=== PATIENT | female | born 1970 | race Caucasian/White ===

== ENCOUNTER → 2018-04-08 14:10 | Outpatient (CLI) | payer OTHER, SELFPAY ==
[2018-04-08 16:03] LABS: T3 Total - Triiodothyronine 1.68 ng/mL (0.6-1.81)
[2018-04-08 16:05] LABS: T4 Free Direct 0.63 ng/dL (0.76-1.46); Thyroid Stim Hormone (TSH) 1.69 uIU/mL (0.358-3.74)
[2018-04-16 04:09] LABS: QNTFERON TB Ag Minus Nil Value 0.16 IU/mL (.); QNTFERON TB Ag Value 0.27 IU/mL (.); QNTFERON TB Mitogen Value > 10.00 IU/mL (.); QNTFERON TB Nil Value 0.11 IU/mL (.)
[2018-04-16 09:30] LABS: QNTIFERON TB Gold Negative (Negative)
== END ==
PROVIDERS: Family Provider Family Medicine; PCP Family Medicine; Visit Provider Family Medicine
DX: E03.9 Hypothyroidism, unspecified (principal); Z20.1 Contact with and (suspected) exposure to tuberculosis
CPT/HCPCS: 36415; 84439; 84443; 84480; 86480

== ENCOUNTER → 2018-06-06 11:05 | Outpatient (CLI) | payer OTHER, SELFPAY ==
[2018-06-06 14:50] LABS: Amphetamine Urine VISTA NEGATIVE (<1000 ng/mL); Barbiturate Urine VISTA NEGATIVE (< 200 ng/mL); Benzodiazepine Urine VISTA NEGATIVE (< 200 ng/mL); Cocaine Urine VISTA NEGATIVE (< 300 ng/mL); Ecstacy Urine VISTA NEGATIVE (< 500 ng/mL); Methadone Urine VISTA NEGATIVE (< 300 ng/mL); PCP Urine VISTA NEGATIVE (< 25 ng/mL); THC Urine VISTA NEGATIVE (< 50 ng/mL); Vista UDS pH Range 6
== END ==
PROVIDERS: Family Provider Family Medicine; PCP Family Medicine; Visit Provider Family Medicine
DX: Z02.89 Encounter for other administrative examinations (principal)
CPT/HCPCS: 80307

== ENCOUNTER → 2018-07-08 13:40 | Outpatient (CLI) | payer OTHER, SELFPAY ==
--- NOTE | 2018-07-08 13:45 | BI_ITS ---
MAMMOGRAPHY - BILATERAL SCREENING REASON FOR EXAM: Female, 47 years old. Routine annual screening examination. PERTINENT HISTORY: Non-contributory. TECHNIQUE: Digital bilateral breast lizette (3D mammographic acquisition) in the CC and MLO projections. 2-D mediolateral oblique (MLO) and craniocaudad (CC) views of both breasts were obtained. CAD: Full Field Digital Mammography with Computer Added Detection was performed. COMPARISON: Comparison is made with prior study dated June 21, 2017 and March 12, 2016. FINDINGS: Breast Composition: The breasts are heterogeneously dense, which may obscure small masses. There are no dominant masses or suspicious calcifications. No other significant abnormalities are identified. There has been no significant change since the prior study. BI/SCREENING MAMM (CAD), BILAT IMPRESSION: Stable bilateral screening mammogram. Yearly follow-up mammogram recommended. (A) ASSESSMENT CATEGORY: BIRADS Category 1: Negative. A letter regarding these results will be sent to the patient by the facility within 30 days. Approximately 10% of breast cancers are not detected by mammography. A normal mammogram should not delay biopsy of a clinically suspicious abnormality. [id number] Electronically Signed: Cj Morrissey MD at 15:51 EDT Tel [phone], Service support ,
== END ==
PROVIDERS: Family Provider Family Medicine; PCP Family Medicine
DX: Z12.31 Encounter for screening mammogram for malignant neoplasm of breast (principal)
CPT/HCPCS: 77063; 77067

== ENCOUNTER → 2018-12-27 09:09 | Outpatient (CLI) | payer OTHER, SELFPAY ==
[2018-10-25 08:35] VITALS: BMI 27.6
[2018-12-27 10:23] LABS: Absolute Lymphocyte Count 1.72 X10^3/ul (0.83-4.51); Absolute Neutrophil Count 2.7 X10^3/uL (2.0-7.7); Basophil# 0.03 X10^3/uL; Basophil% 0.6 % (0-1); Eosinophil# 0.13 X10^3/uL; Eosinophils% 2.6 % (0-5); Hematocrit 37.7 % (37-47); Hemoglobin 12.6 g/dl (12.0-15.0); Lymphocyte # 1.72 X10^3/ul (4.0); Lymphocyte % 34.8 % (19-41); Mean Corp Hgb Conc 33.4 g/gl (32-36); Mean Corpuscular Hgb 30.1 pg (27.0-32.0); Mean Corpuscular Volume 90.2 fL (81-99); Mean Platelet Vol. 9.3 fl (6.2-12.0); Monocyte# 0.39 X10^3/uL; Monocyte% 7.9 % (0-10); Neutrophil # 2.65 X10^3/uL (2.7-7.7); Neutrophil % 53.7 % (47-70); Platelet Count 292 K/mm3 (150-450); RBC Distribution Width CV 12.3 % (11.6-14.6); RBC Distribution Width SD 40.2 fl (35.1-43.9); Red Blood Count 4.18 M/mm3 (4.2-5.4); White Blood Count 4.9 K/mm3 (4.4-11.0)
[2018-12-27 10:25] LABS: POSITIVE COUNT NO; POSITIVE DIFFERENTIAL NO; POSITIVE MORPHOLOGY NO
[2018-12-27 10:53] LABS: ALB/GLOB Ratio 1.2 RATIO (0.9-2.4); AST(SGOT) 17 U/L (15-37); Alanine Aminotransfer ALT/SGPT 33 U/L (13-56); Albumin, Serum 3.7 g/dL (3.2-5.0); Alkaline Phosphatase 62 U/L (45-117); Anion Gap 8 (5-15); BUN 14 mg/dL (7-18); BUN/Creat Ratio 16.7 RATIO (10-20); Calcium,Total 8.1 mg/dL (8.5-10.1); Chloride 108 mmol/L (98-107); Cholesterol 162 mg/dL (200); Creatinine, Serum 0.84 mg/dL (0.55-1.02); EST Glomerular Filtration Rate 77 mL/min (>60); Est Glom Filt Rate - Afr Amer 94 mL/min (>60); Globulin 3.2 g/dL (2.2-4.2); Glucose 92 mg/dL (74-106); High Density Lipoprotein 50 mg/dL; Potassium 4.1 mmol/L (3.5-5.1); Protein, Total 6.9 g/dL (6.4-8.2); Sodium Level 140 mmol/L (136-145); T4 Free Direct 0.76 ng/dL (0.76-1.46); Thyroid Stim Hormone (TSH) 3.77 uIU/mL (0.358-3.74); Triglycerides 54 mg/dL; Very Low Density Lipoprotein 11 mg/dL (5-40)
== END ==
PROVIDERS: Family Provider Family Medicine; PCP Family Medicine; Referring Provider Family Medicine; Visit Provider Family Medicine
DX: E03.9 Hypothyroidism, unspecified (principal); R53.83 Other fatigue; E78.5 Hyperlipidemia, unspecified
CPT/HCPCS: 36415; 80053; 80061; 84439; 84443; 84480; 85025

== ENCOUNTER → 2019-07-01 07:58 | Outpatient (CLI) | payer OTHER, SELFPAY ==
[2019-01-15 09:39] VITALS: BMI 27.6
[2019-07-03 09:19] LABS: Vitamin D,25 Hydroxy 25.2 ng/mL (29.95-100.01)
== END ==
LOC: LAB.FUTURE 01-02 00:38 → BFHLAB 04-22 11:47
PROVIDERS: Family Provider Family Medicine; PCP Family Medicine; Referring Provider Podiatrist; Visit Provider Podiatrist
DX: M77.51 Other enthesopathy of right foot and ankle (principal); M84.30XA Stress fracture, unspecified site, initial encounter for fracture; M79.673 Pain in unspecified foot
CPT/HCPCS: 36415; 82306

== ENCOUNTER → 2019-08-28 06:49 | Outpatient (CLI) | payer OTHER, SELFPAY ==
[2019-01-15 09:39] VITALS: BMI 27.6
--- NOTE | 2019-08-28 07:02 | MRI_ITS ---
STUDY: MRI RIGHT FOREFOOT WITHOUT CONTRAST REASON FOR EXAM: Pain with walking, mostly in the ball of the foot, symptoms for 10 months. TECHNIQUE: Standardized fat and water weighted pulse sequences were obtained in all 3 orthogonal planes. COMPARISON: None. FINDINGS: There is thickening of the medial joint capsule of the metatarsophalangeal joint of the hallux (T2 series 5 images 22, 23; T2 series 6 images 8, 9). Normal tibial and fibular sesamoids, with normal sesamoids-first metatarsal articulations. Normal interphalangeal joint of the hallux. Normal proximal and distal phalanges of the great toe. Normal medial and lateral heads of the flexor hallucis brevis tendons. Normal flexor and extensor hallucis longus tendons. Normal second through fifth metatarsophalangeal (MTP) joints without demonstrated plantar plate tear or capsulitis. Normal interphalangeal joints of the second through fifth toes. Normal proximal, middle and distal phalanges of the second through fifth toes. There is soft tissue fullness at the plantar aspect of the second web space (T1 series 4 images 27, 24) measuring 0.4 cm in AP dimension. Normal flexor and extensor tendons of the second through fifth toes. There is a cyst in the medial aspect of the first metatarsal head (T1 axial image 21). There is no bone edema or stress fracture of the metatarsals. Normal intrinsic muscles of the forefoot. There is a pressure lesion at the medial plantar aspect of the first metatarsophalangeal joint (T1 sagittal images 3, 4). There is a pressure lesion at the plantar aspect of the second metatarsophalangeal joint (T1 sagittal images 11-13). There is a pressure lesion at the plantar aspect of the fifth metatarsophalangeal joint (T1 sagittal images 25-27). MRI/Lower Ext/No Jt/w/o IMPRESSION: Thickening of the medial joint capsule of the first metatarsophalangeal joint. Soft tissue fullness at the plantar aspect of the second webspace, suggestive of a small intermetatarsal neuroma. Pressure lesions plantar to the first, second and fifth metatarsophalangeal joints. No demonstrated plantar plate tear or metatarsal stress fracture. Electronically Signed: Leodan Parker MD at 9:04 EST Tel , Service support ,
== END ==
PROVIDERS: Family Provider Family Medicine; PCP Family Medicine; Referring Provider Podiatrist; Visit Provider Podiatrist
DX: M77.51 Other enthesopathy of right foot and ankle (principal); M79.671 Pain in right foot; M84.374D Stress fracture, right foot, subsequent encounter for fracture with routine healing; G57.61 Lesion of plantar nerve, right lower limb; S93.149A Subluxation of metatarsophalangeal joint of unspecified toe(s), initial encounter
CPT/HCPCS: 73718

== ENCOUNTER → 2020-01-04 | Outpatient (CLI) | payer OTHER, SELFPAY ==
[2019-01-15 09:39] VITALS: BMI 27.6
--- NOTE | 2020-01-04 12:15 | BI_ITS ---
MAMMOGRAPHY - BILATERAL SCREENING REASON FOR EXAM: Female, 49 years old. Routine annual screening examination. PERTINENT HISTORY: Aunts with breast cancer. TECHNIQUE: Digital bilateral breast dotty (3D mammographic acquisition) in the CC and MLO projections. 2-D mediolateral oblique (MLO) and craniocaudad (CC) views of both breasts were obtained. CAD: Full Field Digital Mammography with Computer Added Detection was performed. COMPARISON: Comparison is made with prior examination dated July 08, 2018 and June 21, 2017. FINDINGS: Breast Composition: The breasts are heterogeneously dense, which may obscure small masses. There are no dominant masses or suspicious calcifications. No other significant abnormalities are identified. There has been no significant change since the prior study. BI/SCREEN MAMM (CAD) W/DOTTY BILAT IMPRESSION: Stable bilateral screening mammogram. Yearly follow-up mammogram recommended. (A) ASSESSMENT CATEGORY: BIRADS Category 1: Negative. A letter regarding these results will be sent to the patient by the facility within 30 days. Approximately 10% of breast cancers are not detected by mammography. A normal mammogram should not delay biopsy of a clinically suspicious abnormality. [id number] Electronically Signed: Cj Morrissey, at 14:58 EDT , Service support ,
== END | disposition home or self-care (01) ==
PROVIDERS: PCP Family Medicine; Referring Provider Obstetrics & Gynecology Gynecology
DX: Z12.31 Encounter for screening mammogram for malignant neoplasm of breast (principal)
CPT/HCPCS: 77063; 77067

== ENCOUNTER → 2020-01-08 | Outpatient (CLI) | payer OTHER, SELFPAY ==
[2019-01-15 09:39] VITALS: BMI 27.6
[2020-01-08 13:22] LABS: Free T3 6.2 pg/mL (2.18-3.98); T4 Free Direct 0.82 ng/dL (0.76-1.46)
== END | disposition home or self-care (01) ==
LOC: BFHLAB 09:31
PROVIDERS: PCP Family Medicine; Visit Provider Family Medicine
DX: E03.9 Hypothyroidism, unspecified (principal)
CPT/HCPCS: 36415; 84439; 84443; 84481

== ENCOUNTER → 2020-04-23 | Outpatient (CLI) | payer OTHER, SELFPAY ==
[2019-01-15 09:39] VITALS: BMI 27.6
[2020-04-23 12:41] LABS: Free T3 2.8 pg/mL (2.18-3.98); T4 Free Direct 0.59 ng/dL (0.76-1.46); Thyroid Stim Hormone (TSH) 2.33 uIU/mL (0.358-3.74)
== END | disposition home or self-care (01) ==
LOC: MTLAB 07:44
PROVIDERS: PCP Family Medicine; Referring Provider Family Medicine; Visit Provider Family Medicine
DX: E03.9 Hypothyroidism, unspecified (principal)
CPT/HCPCS: 36415; 84439; 84443; 84481

== ENCOUNTER 2020-07-10 19:48 | Outpatient (RCR) | payer OTHER, SELFPAY ==
[2019-01-15 09:39] VITALS: BMI 27.6
== END 2020-07-24 23:59 ==
LOC: EMPH 19:48
PROVIDERS: PCP Family Medicine; Visit Provider Family Medicine Geriatric Medicine
DX: Z11.59 Encounter for screening for other viral diseases (principal)
CPT/HCPCS: 87635; U0003

== ENCOUNTER → 2020-07-30 | Outpatient (CLI) | payer OTHER, SELFPAY ==
[2019-01-15 09:39] VITALS: BMI 27.6
[2020-07-30 16:04] LABS: ALB/GLOB Ratio 1.1 RATIO (0.9-2.4); AST(SGOT) 36 U/L (15-37); Alanine Aminotransfer ALT/SGPT 29 U/L (13-56); Albumin, Serum 4.1 g/dL (3.2-5.0); Alkaline Phosphatase 45 U/L (45-117); Anion Gap 9 (5-15); BUN 16 mg/dL (7-18); BUN/Creat Ratio 16.3 RATIO (10-20); Bilirubin, Direct 0.16 mg/dL (0.00-0.30); Calcium,Total 9.2 mg/dL (8.5-10.1); Chloride 106 mmol/L (98-107); Creatinine, Serum 0.98 mg/dL (0.55-1.02); EST Glomerular Filtration Rate 64 mL/min (>60); Est Glom Filt Rate - Afr Amer 78 mL/min (>60); Globulin 3.6 g/dL (2.2-4.2); Glucose 93 mg/dL (74-106); Potassium 3.7 mmol/L (3.5-5.1); Protein, Total 7.7 g/dL (6.4-8.2); Sodium Level 138 mmol/L (136-145)
== END | disposition home or self-care (01) ==
LOC: BFHLAB 13:47
PROVIDERS: PCP Family Medicine; Visit Provider Family Medicine
DX: R74.8 Abnormal levels of other serum enzymes (principal)
CPT/HCPCS: 36415; 80053; 82248

== ENCOUNTER → 2020-08-06 | Outpatient (CLI) | payer OTHER, SELFPAY ==
[2019-01-15 09:39] VITALS: BMI 27.6
--- NOTE | 2020-08-06 08:54 | RAD_ITS ---
HISTORY: UPPER LATERAL RIB PAIN, PT STARTED WORKING OUT AND DOES NOT REMEMBER INJURING IT ADDITIONAL HISTORY: None provided. COMPARISON: Chest 01/18/2015 EXAMINATION/TECHNIQUE: XR Ribs Unilateral W/ PA Chest Min 3 Views Right FINDINGS: No acute fracture. No consolidation, pleural effusion or pneumothorax. Acute rib fractures can be difficult to visualize radiographically. Follow-up as clinically warranted. RAD/Ribs Uni Min 3V w/PA Chest IMPRESSION: No acute rib fracture detected. at 0621 Reported and signed by: Astrid Shi MD Electronically Signed: Astrid Shi MD at 6:21 EDT Tel , Service support ,
== END | disposition home or self-care (01) ==
LOC: RAD 08:53
PROVIDERS: PCP Family Medicine; Referring Provider Family Medicine; Visit Provider Family Medicine
DX: R07.81 Pleurodynia (principal)
CPT/HCPCS: 71101

== ENCOUNTER 2020-08-22 20:55 | Outpatient (RCR) | payer OTHER, SELFPAY ==
[2019-01-15 09:39] VITALS: BMI 27.6
== END 2020-08-24 23:59 ==
LOC: EMPH 20:55
PROVIDERS: PCP Family Medicine; Visit Provider Family Medicine Geriatric Medicine
DX: Z03.818 Encounter for observation for suspected exposure to other biological agents ruled out (principal)
CPT/HCPCS: 87426

== ENCOUNTER 2020-08-29 10:26 | Outpatient (RCR) | payer OTHER, SELFPAY ==
[2019-01-15 09:39] VITALS: BMI 27.6
== END 2020-09-23 23:59 ==
LOC: EMPH 10:26
PROVIDERS: PCP Family Medicine; Visit Provider Family Medicine Geriatric Medicine
DX: Z03.818 Encounter for observation for suspected exposure to other biological agents ruled out (principal)
CPT/HCPCS: 87426

== ENCOUNTER 2020-09-01 19:16 | Emergency (ER) | payer OTHER, SELFPAY ==
[2019-01-15 09:39] VITALS: BMI 27.6
[2020-09-01 19:17] VITALS: BP 132/78; PULSE 81; RESP 16; TEMP 36.7; O2SAT 99; BMI 26.9
--- NOTE | 2020-09-01 20:24 | ED.DCSUM_ITS ---
History of Present Illness Chief Complaint: Back Informant: Patient Onset: Days Context: Gradual Onset Timing: Continuous Quality: Sharp Location: Lumbar Worsened by: improves with: Movement Relieved by: Nothing Associated Symptoms: Radiation to Left Leg Narrative: Patient is a 49-year-old female with a history of intermittent low back pain presenting with acute exacerbation of her low back pain. Patient states normally if she has a flareup she will take Celebrex and it clears it up. Yest erday her lower back started hurting and it started rating down her left leg. She does feel like she is having spasms/cramps in her calf. She describes the pain as sharp and stabbing. She is a hard time finding a position of comfort, sitting or laying down. She thinks she is most comfortable standing. She tried multiple [id number] medications in addition to the Celebrex including Tylenol and ibuprofen. She is tried Biofreeze and a TENS unit. She is taken to [place] that she had from a surgery 3 years ago as well as 10 mg of prednisone that her mother gave her. Patient called for today because her pain was so bad. No other complaints at this time. No saddle anesthesia. Patient does have issues with stress incontinence but this is relatively unchanged. No associated fever. Patient denies any new injuries to her back. She denies any falls. She states that she is found that if she sticks to gluten-free diet she does get flareups of back pain but she actually ate gluten the other day and thinks this is what is causing her flareup at this time. She knows she has 2 children with celiac disease. Prior similar symptoms: Yes, With Prior Back Pain Past Medical History - Allergies and Home Meds Allergies/Adverse Reactions: Allergies Penicillins [PCN] Allergy (Verified 09/01/20 19:19) Angioedema Primary Care Physician: Helen Avilez DO [Primary Care Provider] - Past Medical History: None Surgical History: dilatation and curettage Lives: Spouse/ Significant Other Smoking Status: Former smoker Review of Systems General: Denies: Chills, Fever, Sweats Eyes: Denies: Visual changes - bilaterally, Diplopia ENT: Denies: Rhinorrhea, Sore throat Cardiovascular: Denies: Chest pain, Palpitations Respiratory: Denies: Dyspnea, Cough, Dyspnea on exertion Gastrointestinal: Denies: Abdominal pain, Nausea, Vomiting, Diarrhea, Melena, Hematochezia Genitourinary: Denies: Dysuria, Hematuria, Frequency Musculoskeletal: Reports: Back pain, Extremity Pain - left Skin: Denies: Rash, Wounds Neurological: Denies: Headache, Weakness, Numbness Physical Exam Vital Signs/Narrative: Vital Signs Temp Pulse Resp BP Pulse Ox 09/01/20 19:17 98.0 F 81 16 132/78 H 99 Inital Vital Signs reviewed: Yes General: Well nourished, Well developed, - - Patient pacing in the room. Head: Normocephalic, Atraumatic Eyes: Perrl, EOMI ENT: Moist mucous membranes, No rhinorrhea Neck: Supple, Nontender Cardiovascular: Regular rate, Regular rhythm, No murmurs Respiratory: No distress, CTA bilaterally, Chest nontender Abdomen: Soft, Nontender, Nondistended, Normal bowel sounds Back: Normal Inspection, Nontender, Positive SLR - Right. Negative for: Spinal tenderness, Paraspinal Tenderness, Positive SLR - Left Extremeties: Nontender, No edema, - - 2+ bilateral DP pulses Skin: Normal color, No rash Neuro: Alert, Oriented, Normal Strength, Normal Sensation, Normal DTR, Normal Gait. Negative for: Weakness, Parasthesia Psychological: Normal affect Diagnostic/Tx/Re-eval - Medical Decision Making Patient is evaluated for atraumatic low back pain. She has exam consistent with sciatica. She has a normal neurologic exam. She does not have midline tenderness. I do not think emergent MRI is indicated. I do not think imaging is indicated at this time. Patient actually starting to have mild improvement of her symptoms compared to earlier today while she is in the ER. She is given IM Norflex in the ER. She does not want any opioids or stronger medications at this time as she felt like the [place] she took earlier did not help at all. Patient be discharged home with a course of Flexeril and a Medrol Dosepak. She is encouraged follow-up with her primary care doctor for further evaluation of this especially as this seems to be a recurrent issue. Patient does not have findings consistent with cauda equina syndrome. I think she stable for outpatient follow-up. Patient is counseled on signs and symptoms requiring return to the emergency room. Patient verbalizes agreement and understand this plan. Patient discharged home in stable and improved condition. ED Disposition - Plan for ED Patient: Disposition: Home or Assisted Living Diagnosis: Left-sided low back pain with sciatica Instructions: Understanding Sciatica Prescriptions: cycloBENZAPRine HCl [Flexeril] 10 mg PO TID PRN #20 tab PRN Reason: Muscle Spasm Prescription Printed MethylPREDNISolone DosePak [Medrol DosePak] 4 mg PO UD #1 box Prescription Printed Referrals: Helen Avilez DO [Primary Care Provider] -
[2020-09-01] MEDS: Orphenadrine 60 MG/2 ML Ampul IM (20:45)
== END 2020-09-01 21:08 | disposition home or self-care (01) ==
PROVIDERS: Emergency Provider Emergency Medicine; PCP Family Medicine
DX: M54.42 Lumbago with sciatica, left side (principal); Z87.891 Personal history of nicotine dependence
CPT/HCPCS: 96372; 99282

== ENCOUNTER 2020-09-02 13:45 | Emergency (ER) | payer OTHER, SELFPAY ==
[2020-09-01 19:17] VITALS: BMI 26.9
[2020-09-02 13:45] VITALS: BP 135/72; PULSE 72; RESP 18; TEMP 36.8; BMI 26.9
--- NOTE | 2020-09-02 15:49 | ED.RN ---
PT LEFT WITHOUT BEING SEEN
--- NOTE | 2020-09-02 17:13 | ED.RN ---
LEFT WITHOUT BEING SEEN
== END 2020-09-02 15:36 | disposition left against medical advice (07) ==
LOC: ED 15:53
PROVIDERS: Emergency Provider Emergency Medicine; PCP Family Medicine
DX: M54.5 Low back pain (principal)

== ENCOUNTER 2020-09-04 19:03 | Emergency (ER) | payer OTHER, SELFPAY ==
[2020-09-04 19:03] VITALS: BP 142/80; PULSE 90; RESP 18; TEMP 36.2; O2SAT 100; BMI 27.1
--- NOTE | 2020-09-04 19:46 | ED.VISSUMM ---
- ER Visit Summary Date of Service: 09/04/20 Chief Complaint: Lower back pain radiating down left leg. History of Present Illness: The patient is a 49 F history of prior intermittent chronic back pain and hypothyroidism. Patient never had back surgery. She had intermittent back pain for the last week Wednesday she started having some mild urinary incontinence. It is intermittent. She is having no signs of a UTI. No dysuria, hematuria or frequency. She denies any bowel constipation or incontinence. She denies any numbness to her legs. She does have pain radiating down from her back behind her left leg consistent with sciatica. She denies any weakness. She has seen a chiropractor to be adjusted for this recently. She denies any fever. She denies any trauma. Physical Examination: Y female no acute distress vital signs stable afebrile. H EENT exam unremarkable. Neck nontender. Lungs clear to auscultation bilaterally. Heart regular rhythm no murmur. Rate about 90. Abdomen soft nontender normal bowel sounds no peritoneal signs. Extremities moves all 4. Neurovascular intact. She has normal medial thigh sensation. Normal motor strength with both dorsi and plantar flexion of both feet. She is a positive straight leg raise on the left. About 30 degrees. Negative on the right. Back exam she is mild tenderness over the left SI SI joint but also over her lower back. There is no signs of trauma. Neurologically she is awake alert with no focal motor or sensory deficits. No signs of cauda equina. No perianal anesthesia. Test Results: Post void bladder scan equaled 99. Emergency Department Course and Treatment: Clinically patient looks well. I do not think this is cauda equina. We will get a bladder scan post void to make sure she does not have residual. Repeat exam patient is doing well at 2100. Again no signs of cauda equina currently. She did not anything currently for pain but I will give her prescription for home. Treatment Plan: Patient to follow-up with her primary care physician on Wednesday and she may need outpatient MRI if is not improving. She knows return if worse. She is already on steroids. Then she will start anti-inflammatories and steroids are done already for [place] for pain. Disposition: Discharge Impression: Acute back pain with left-sided sciatica This note was generated with [employer] software. It may contain incorrect words, spelling, and punctuation that were not noted in review of the chart prior to signing ED Disposition - Plan for ED Patient: Referrals: Helen Avilez DO [Primary Care Provider] -
--- NOTE | 2020-09-04 21:02 | DCINST.ED_ITS ---
ED Disposition - Plan for ED Patient: Disposition: Home or Assisted Living Instructions: ED Back Pain Acute or Chronic, ED LUMBAR RADICULOPATHY Prescriptions: Hydrocodone Bitart/Apap 5-325 [[place] 5MG-325MG] 1 - 2 tab PO Q4H PRN PRN 4 Days #14 tab PRN Reason: Pain Prescription Printed Hydrocodone/Acetaminophen [[place] 7.5-325 Tablet] 1 ea PO Q4H PRN PRN #14 tab PRN Reason: Pain 1-10 Or Fever Prescription Printed Referrals: Helen Avilez DO [Primary Care Provider] - Keep Luisa appointment Additional Instructions: Call follow-up with primary care physician on Wednesday. You may need outpatient MRI of your lumbar spine to rule out a possible disc. Finish your prednisone. [place] for pain. Once you are done with the prednisone start on an anti-inflammatory. Return to the emergency department if you have worsening bowel or bladder incontinence, fever or leg weakness.
[2020-09-04 21:24] VITALS: BP 136/86; PULSE 80
== END 2020-09-04 22:35 | disposition home or self-care (01) ==
PROVIDERS: Emergency Provider Emergency Medicine; PCP Family Medicine
DX: M54.42 Lumbago with sciatica, left side (principal)
CPT/HCPCS: 99282

== ENCOUNTER 2020-09-12 02:23 | Emergency (ER) | payer OTHER, SELFPAY ==
[2020-09-12 02:23] VITALS: BP 157/95; PULSE 85; RESP 18; TEMP 36.2; O2SAT 98; BMI 26.9
--- NOTE | 2020-09-12 03:00 | RAD_ITS ---
HISTORY: C/O SEVERE LT HIP PAIN STEPPED OUT OF VEHICLE AND FELT A POP ADDITIONAL HISTORY: None provided. EXAMINATION/TECHNIQUE: XR Hip Unilateral with Pelvis when performed; 2-3 Views Left Number of images including paperwork: 3 COMPARISON: None FINDINGS: BONES: No acute fracture. JOINTS: No subluxation. SOFT TISSUES: No distinct foreign body. RAD/HIP, UNI W/ Pelvis 2-3 Views IMPRESSION: No acute osseous abnormality. at 0331 Reported and signed by: Astrid Shi MD Electronically Signed: Astrid Shi MD at 3:31 EST Tel , Service support ,
--- NOTE | 2020-09-12 03:00 | RAD_ITS ---
HISTORY: C/O LBP X DAYS ADDITIONAL HISTORY: None provided. EXAMINATION/TECHNIQUE: XR Spine Lumbar 2 or 3 Views Number of images including paperwork: 3 COMPARISON: None FINDINGS: VERTEBRAE: No acute fracture. VERTEBRAL ALIGNMENT: No traumatic subluxation. DISKS AND JOINTS: No significant degenerative changes. SOFT TISSUES: Unremarkable paraspinous soft tissues. Moderate amount of stool in the visible colon. RAD/Lumbar Spine 2 or 3 Views IMPRESSION: No acute osseous abnormality. at 0330 Reported and signed by: Astrid Shi MD Electronically Signed: Astrid Shi MD at 3:30 EST Tel , Service support ,
--- NOTE | 2020-09-12 03:01 | ED.VIS.GEN ---
History of Present Illness Chief Complaint: Lower Extremity Injury Informant: Patient Narrative: 40-year-old female presenting with lower back pain he states he has had this for couple of weeks. She was initially in the ER and was given Norflex and Toradol and sent home with muscle relaxants which were not helping as much. She then came back to the emergency room and was prescribed [place] for pain. She states her pain started to improve and for 2 days she did not need the medication. She states she was getting out of her truck earlier today and felt a pop in her left lower back/hip area and since then she has had numbness down the back of her leg and on the top of her foot. She has difficulty ambulating secondary to pain. Patient states she is tried deep tissue massage and has seen a chiropractor. She just finished a Medrol Dosepak as well. Has bladder or bowel control issues. No saddle paresthesia. Past Medical History - Allergies and Home Meds Allergies/Adverse Reactions: Allergies Penicillins [PCN] Allergy (Verified 09/04/20 19:06) Angioedema Primary Care Physician: Helen Avilez DO [Primary Care Provider] - Past Medical History: - - Denies significant medical history. Surgical History: dilatation and curettage Smoking Status: Never smoker Review of Systems General: Denies: Chills, Fever, Sweats Eyes: Denies: Visual changes - bilaterally, Diplopia ENT: Denies: Rhinorrhea, Sore throat Cardiovascular: Denies: Chest pain, Palpitations Respiratory: Denies: Dyspnea, Cough, Dyspnea on exertion Gastrointestinal: Denies: Abdominal pain, Nausea, Vomiting, Diarrhea, Melena, Hematochezia Genitourinary: Denies: Dysuria, Hematuria, Frequency Musculoskeletal: Reports: Back pain - Left-sided back pain. Denies: Neck pain Skin: Denies: Rash, Abscess Neurological: Reports: Parasthesia - Left posterior leg and dorsum of left foot Psych: Denies: Depression, Anxiety Physical Exam Vital Signs/Narrative: Vital Signs Temp Pulse Resp BP Pulse Ox 09/12/20 02:23 97.2 F L 85 18 157/95 H 98 Inital Vital Signs reviewed: Yes General: Well nourished, Well developed, No Acute Distress Head: Normocephalic Eyes: Perrl ENT: Moist mucous membranes, No rhinorrhea Cardiovascular: Regular rhythm Respiratory: No distress, CTA bilaterally Abdomen: Soft, Nontender Back: - - Left lumbar paraspinal muscular tenderness.. Negative for: Spinal tenderness Extremities: Nontender, - - Diminished sensation posterior thigh and dorsum of left foot. Pedal pulses 2+. Skin: Normal color, No rash Neurological: Alert, Oriented x3 Psychological: Normal affect, Normal Mood Diagnostic/Tx/Re-eval Clinical Impression(s) from Imaging Studies Hip/Pelvis X-Ray 09/12/20 03:00 IMPRESSION: No acute osseous abnormality. at 0331 Reported and signed by: Astrid Shi MD Electronically Signed: Astrid Shi MD at 3:31 EST Tel , Service support , Lumbar Spine X-Ray 09/12/20 03:00 IMPRESSION: No acute osseous abnormality. at 0330 Reported and signed by: Astrid Shi MD Electronically Signed: Astrid Shi MD at 3:30 EST Tel , Service support , - Medical Decision Making 50-year-old female presenting with left lumbar paraspinal muscular pain as well as numbness and tingling down the posterior thigh and leg in the dorsum of her left foot. She does not describe it as medial, lateral or central on her foot rather it is the entirety of dorsum of her foot. Pedal pulses are intact. I did obtain x-rays of the lumbar spine and the left hip which are negative. She was given a shot of morphine which did improve her pain. Since [place] was not helping I did write her prescription for Percocet. She is also given a burst of steroids. She has physical therapy on Wednesday and I encouraged her to follow-up for that. Patient symptoms most consistent with a lumbar radiculopathy but she has no red flag signs or symptoms for cauda equina syndrome or infectious etiology. I feel she is safe to be discharged home at this time. She was offered crutches but states she has some at home. Patient will be discharged home in stable condition. Impression: 1. Lumbar strain 2. Lumbar radiculopathy ED Disposition - Plan for ED Patient: Disposition: Home or Assisted Living Instructions: ED LUMBAR RADICULOPATHY Prescriptions: Prednisone [Deltasone] 60 mg PO DAILY #6 tab Prescription Printed Oxycodone HCl/Acetaminophen [Percocet 5/325] 1 tab PO Q6H PRN PRN 3 Days #12 tab PRN Reason: Pain Prescription Printed Referrals: Helen Avilez DO [Primary Care Provider] -
[2020-09-12] MEDS: Ondansetron ODT 4 MG Tablet PO (03:09)
[2020-09-12] MEDS: Morphine 4 MG/ML Syringe IM (03:11)
[2020-09-12] MEDS: HYDROmorphone 0.5 MG/0.5 ML SYRINGE IM (04:49)
[2020-09-12 05:20] VITALS: BP 140/72; PULSE 68; RESP 16; O2SAT 98
== END 2020-09-12 05:33 | disposition home or self-care (01) ==
PROVIDERS: Emergency Provider Student in an Organized Health Care Education/Training Program; PCP Family Medicine
DX: M54.16 Radiculopathy, lumbar region (principal); S39.012A Strain of muscle, fascia and tendon of lower back, initial encounter; X50.1XXA Overexertion from prolonged static or awkward postures, initial encounter; Y93.89 Activity, other specified; Y92.89 Other specified places as the place of occurrence of the external cause; Y99.8 Other external cause status
CPT/HCPCS: 72100; 73502; 96372; 99282

== ENCOUNTER 2020-09-12 21:43 | Emergency (ER) | payer OTHER, SELFPAY ==
[2020-09-12 02:23] VITALS: BMI 26.9
[2020-09-12 21:43] VITALS: BP 159/84; PULSE 93; RESP 18; TEMP 36.8; O2SAT 99; BMI 26.9
[2020-09-12] MEDS: Ondansetron 4 MG/2 ML Vial IV (22:30)
[2020-09-12] MEDS: Morphine 4 MG/ML Syringe IV (22:31)
[2020-09-12] MEDS: Ketorolac 15 MG/ML Vial IV (22:32)
[2020-09-12] MEDS: diazePAM 5 MG Tablet 2.5 MG PO (22:37)
--- NOTE | 2020-09-12 22:41 | ED.DCSUM_ITS ---
History of Present Illness Chief Complaint: Back Informant: Patient, Significant Other Onset: Days, Weeks Context: Sudden Onset Injury: - - No history of direct trauma. Timing: Continuous - Initially intermittent now continuous, Intermittent Quality: Dull, Aching Location: Lumbar, Buttock, Left Leg Current Severity: Mild Maximum Severity: Severe Worsened by: improves with: Movement, Ambulation, Bending Relieved by: Nothing Associated Symptoms: Radiation to Left Leg - Posteriorly down to the foot, - - Nuys bowel bladder dysfunction. Denies saddle paresthesia or anesthesia. Denies foot drop. Denies buckling of her knees. Denies fever, chills night sweats. Narrative: Patient is a 50-year-old woman who presents with atraumatic back pain. This is her fourth ER visit. She complains of pain that radiates to the left buttocks down the left leg to the foot. She has no other symptoms. Prior similar symptoms: Yes Recent Illness/Hospitalization: Yes Past Medical History - Allergies and Home Meds Allergies/Adverse Reactions: Allergies Penicillins [PCN] Allergy (Verified 09/12/20 21:46) Angioedema Primary Care Physician: eHlen Avilez DO [Primary Care Provider] - Prior records reviewed: Yes Surgical History: dilatation and curettage Lives: Spouse/ Significant Other Smoking Status: Never smoker Alcohol: None Drugs: None Review of Systems General: Denies: Chills, Fever, Malaise, Subjective, Sweats Cardiovascular: Denies: Chest pain, Palpitations Respiratory: Denies: Dyspnea, Cough, Dyspnea on exertion Gastrointestinal: Denies: Abdominal pain, Nausea, Vomiting, Diarrhea, Consti pation Genitourinary: Denies: Dysuria, Hematuria, Frequency Musculoskeletal: Reports: Back pain, Extremity Pain. Denies: Myalgias, Arthralgias, Neck pain, Swelling Skin: Denies: Rash, Wounds Neurological: Denies: Headache, Weakness, Parasthesia Hematologic: Denies: Easy bruising, Easy bleeding Allergy: Denies: Uticaria Physical Exam Vital Signs/Narrative: Vital Signs Temp Pulse Resp BP Pulse Ox 09/12/20 21:43 98.3 F 93 18 159/84 H 99 Inital Vital Signs reviewed: Yes General: Well nourished, Well developed, - - Appears uncomfortable. Head: Normocephalic, Atraumatic Eyes: Perrl, EOMI. Negative for: Pale conjunctiva Neck: Supple, Nontender Cardiovascular: Regular rate, Regular rhythm, No murmurs Respiratory: No distress, CTA bilaterally Abdomen: Soft, Nontender, Nondistended, Normal bowel sounds Rectal: - - Positive rectal tone. Positive anal wink. Back: Normal Inspection, Nontender, Negative SLR - Right, Positive SLR - Left - Patient has pain at 45 degrees that radiates to the buttocks and posterior thigh., - - Straight leg raise on the right causes pain centrally.. Negative for: Surgical Scar, Spinal tenderness, CVA tenderness Extremeties: Nontender, No edema, Strong Pulses, Symmetric. Negative for: Tenderness, Edema Skin: Normal color Neuro: Alert, Oriented, Normal Strength - Is able to ambulate. There is no foot drop. Able to walk on heels and toes. EHL intact. Able to perform 1 legged squat right and left, Normal Sensation, Normal DTR - 2-3+ patella and ankle., Normal Gait, Normal Reflexes Reflexes: Right Patellar, Right Achilles, Left Patellar, Left Achilles. Negative for: Right Clonus, Right Babinski, Left Clonus, Left Babinski Psychological: Normal affect, Tearful Diagnostic/Tx/Re-eval - Medical Decision Making Patient was medicated with IV Toradol, morphine and p.o. Valium. Patient was reassessed at 2320. She states the pain is a 3. She is able to sit up. She feels comfortable going home. ED Disposition - Plan for ED Patient: Disposition: Home or Assisted Living Diagnosis: Low back pain with left-sided sciatica Instructions: ED LUMBAR RADICULOPATHY Prescriptions: Diazepam [Valium] 2 mg PO TID #10 tablet Referrals: Helen Avilez DO [Primary Care Provider] - Additional Instructions: 1. Discontinue taking Flexeril 2. If you are unable to urinate or have loss of bowel control or develop numbness in the buttocks area return to the emergency department immediately. 3. If you develop a foot drop or if your knee tracey going up or down steps return to the emergency department
[2020-09-12 23:49] VITALS: BP 111/76; PULSE 90; RESP 15; O2SAT 100
== END 2020-09-12 23:50 | disposition home or self-care (01) ==
PROVIDERS: Emergency Provider Emergency Medicine; PCP Family Medicine
DX: M54.42 Lumbago with sciatica, left side (principal)
CPT/HCPCS: 96374; 96375; 99283; A4216; J2405

== ENCOUNTER → 2020-09-18 10:41 | Outpatient (CLI) | payer OTHER, SELFPAY ==
[2020-09-12 21:43] VITALS: BMI 26.9
--- NOTE | 2020-09-18 10:46 | US_ITS ---
HISTORY: Pelvic pain. 63 images. Comparison study is from February 15, 2012 Findings: Endovaginal imaging: The uterus measures 8.3 x 5 x 5.6 cm. A tiny amount of hypoechoic tissue is present within the region of the endometrial canal in the lower uterine segment possibly representing fluid such as blood. Myometrium is mildly heterogeneous. The endometrial stripe more cranially within the uterine fundus is normal at 5 mm. The left ovary measures 3.8 x 2.4 x 2.9 cm. Follicles are present on the left ovary. The largest these follicles measures 2.1 cm. Color and pulse wave Doppler imaging demonstrates flow to a left ovarian parenchyma, this is arterial flow. The right ovary is not imaged. US/Transvaginal Non- IMPRESSION: Tiny crescentic area of hypoechoic tissue within the lower uterine segment likely representing blood. Right ovary not demonstrated. at 2322 Reported and signed by: Carl Almanza MD Pending Final Proof Editing
[2020-09-20 09:58] LABS: Follicle Stimulating Hormone 9.7 mIU/mL
== END ==
PROVIDERS: PCP Family Medicine
DX: N95.1 Menopausal and female climacteric states (principal); R10.2 Pelvic and perineal pain
CPT/HCPCS: 36415; 76830; 82670; 83001; 83002; 84443; 93976

== ENCOUNTER → 2020-09-26 15:59 | Outpatient (CLI) | payer OTHER, SELFPAY ==
[2020-09-12 21:43] VITALS: BMI 26.9
--- NOTE | 2020-09-26 16:15 | MRI_ITS ---
STUDY: MRI LUMBAR SPINE WITHOUT CONTRAST REASON FOR EXAM: Female, 50 years old. radiculopathy,c/o pain in low back/sacrum into LLE TECHNIQUE: Standardized fat and water weighted pulse sequences were obtained in the sagittal and axial planes. COMPARISON: X-ray 09/12/2020. FINDINGS: T12-L1: Normal endplates. Normal disc height, hydration and morphology. Normal bilateral facet joints. Normal central canal and bilateral lateral recesses. Normal bilateral intervertebral neural foramina. Normal lumbar lordosis. There is no substantial scoliosis. Normal conus medullaris that terminates at the L1 level. L1-2: Normal endplates. Normal disc height, hydration and morphology. Normal bilateral facet joints. Normal central canal and bilateral lateral recesses. Normal bilateral intervertebral neural foramina. L2-3: Normal endplates. Normal disc height, hydration and morphology. Normal bilateral facet joints. Normal central canal and bilateral lateral recesses. Normal bilateral intervertebral neural foramina. L3-4: Normal endplates. Disc dehydration. Mild, noncompressive spondylotic bar. Normal bilateral facet joints. Normal central canal and bilateral lateral recesses. Normal bilateral intervertebral neural foramina. L4-5: Normal endplates. Disc dehydration. Moderate sized left paracentral disc extrusion with 1 cm caudal migration, causing mild effacement of the left ventral thecal sac and displacing the traversing left L5 nerve root. Normal bilateral facet joints. Normal bilateral intervertebral neural foramina. L5-S1: Normal endplates. Disc dehydration. Small, central, noncompressive disc protrusion.. Normal bilateral facet joints. Normal central canal and bilateral lateral recesses. Normal bilateral intervertebral neural foramina. Normal visualized sacral ala. Normal visualized paraspinous soft tissue structures. MRI/Spine Lumbar (Routine) IMPRESSION: 1. L4-L5 disc extrusion displacing the traversing left L5 nerve root. 2. Noncompressive L5-S1 disc protrusion. Electronically Signed: Carlyn Artis MD at 22:17 EST Tel , Service support ,
== END ==
PROVIDERS: PCP Family Medicine; Referring Provider Family Medicine; Visit Provider Family Medicine
DX: M51.27 Other intervertebral disc displacement, lumbosacral region (principal); M54.16 Radiculopathy, lumbar region
CPT/HCPCS: 72148

== ENCOUNTER 2020-10-23 14:11 | Outpatient (RCR) | payer OTHER, SELFPAY | END 2020-10-24 23:59 | LOC: EMPH 14:11 | PROVIDERS: PCP Family Medicine; Referring Provider Family Medicine Geriatric Medicine; Visit Provider Family Medicine Geriatric Medicine | DX: Z03.818 Encounter for observation for suspected exposure to other biological agents ruled out (principal) | CPT/HCPCS: 87426 ==

== ENCOUNTER 2020-11-07 09:30 | Outpatient (RCR) | payer OTHER, SELFPAY ==
--- NOTE | 2020-09-13 10:43 | HP.PTEVAL_ITS ---
Patient's Visit Information KRYSTEN MOLINA is a 50 year old F referred to Physical Therapy by Dr. Helen Avilez DO with a diagnosis of LEFT LUMBAR RADICULOPATHY. Date of Evaluation: 09/13/20 Physical Therapist: Brett Baum, PT, Cert MDT, OCS - Visit Plan Frequency: 2x /Week Duration: 4 Weeks Plan: PT INTERVENTIONS MECKENZIE EX'S,PATIENT EDUCATION ON POSTURE/BODY MECHANICS,PROGRESS TO DLSAND POSTURAL EX'S AND MODALTIES FOR PAIN - Subjective This 50 y/o female presents to physical therapy with lumbar pain left radiculopathy. Patient has had left lumbar radiculopathy ~ 2weeks. Possible working out and cleaned house had ache. Patient was unable to sit but standing walking but started radiculopathy. Patient has had been ER severeal times with pain and spasms . MEDS percocet and valium. Patient was given tarodal. Pain located and symmtrical lumbar radiating posterior leg butuck hamstrings calf and parathesia on foot.Aggravting sitting,bending,lifting and driving. Alleviating factors are walking and standing.Coughing/sneezing +. Bowel/bladder. C/O paratghesia/tingling feet. Symptoms affects sleeping. Patient lumbar radiculopthy affects ADL's,housework and function. Patient symptoms affects RTW and is not workingg. SOCIAL: . 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 GAIT: antalgic gait left side guarded. NEURO: c/o parathesia/tingling let foot ,reflexes L3-4,L4-5,L5-S1 2/3. MMT: left quads/hams 3+/5 due ,ankle 4-/5,hip flexion 4-/5,right LE 4/5,4-/5 ,ankle 4/5. SYMMTRICAL: align. LUMBAR ROM: flexion mod loss pain left leg ,extension min loss,side glides min loss. FLEXABILITY: + ANR - Special Tests L/S Slump test left side: Positive L/S Slump test right side: Negative L/S Left Straight Leg Raise: Negative L/S Right Straight Leg Raise: Positive Lumbar Standing: Flexion - Mechanical Response: No effect Lumbar Standing: Flexion - Symptoms During Testing: Increases Lumbar Standing: Extension - Mechanical Response: No effect Lumbar Standing: Extension - Symptoms During Testing: Decreases Lumbar Standing: Extension - Symptoms After Testing: No better Lumbar Standing: Right Side Glides - Mechanical Response: No effect Lumbar Standing: Right Side Munday - Symptoms During Testing: Increases Lumbar Standing: Right Side Munday - Symptoms After Testing: Worse Lumbar Standing: Left Side Munday - Mechanical Response: No effect Lumbar Standing: Left Side Munday - Symptoms During Testing: Increases Lumbar Standing: Left Side Munday - Symptoms After Testing: No worse Lumbar Lying: Flexion - Mechanical Response: No effect Lumbar Lying: Flexion - Symptoms During Testing: Increases Lumbar Lying: Flexion - Symptoms After Testing: Worse Lumbar Lying: Extension - Mechanical Response: No effect Lumbar Lying: Extension - Symptoms During Testing: Centralizing Lumbar Lying: Extension - Symptoms After Testing: Better - Goals Goal 1:: Patient to be I with HEP. Goal Time Frame: 4-6 Weeks Goal 2:: Patient to be I with posture/body mechanics. Goal Time Frame: 4-6 Weeks Goal 3:: Patient to decrease lumbar radiculopathy by 75% or > to improve function. Goal Time Frame: 4-6 Weeks Goal 4:: Pateint restore lumbar ROM for function of recovery without pain and - SLR and ANT rle Goal Time Frame: 4-6 Weeks Goal 5:: Patient be d/c to prophalxis Goal Time Frame: 4-6 Weeks Goal 6:: Patient to improve back owestry score by 5-10 points or > to improve QO/RTW. Goal Time Frame: 4-6 Weeks - Rehabilitation Potential Physical Therapy Diagnosis: This patient appears to have derrangement from disc herniation with severe lelft leg pain ,+ ANR,SLR ,pain with flexion and postioning with perphilizing better with extension prone thus benifit drom skilled PT Rehabilitation Potential: Good - Anticipated Interventions Thank you for the opportunity to evaluate your patient. For Medicare and Medicare HMO plans, please review the plan of care and approve it. It will need to be FAXED BACK to us at [phone] for Medicare purposes. For Medicare only, by signing this I certify the plan of care. Please let me know if there are questions or concerns regarding this plan of care. Physician Signature: Date:
--- NOTE | 2020-11-07 10:02 | HP.PTDCSUM ---
It has been my pleasure to treat KRYSTEN MOLINA referred by Dr. Helen Avilez DO, with the diagnosis of LEFT LUMBAR RADICULOPATHY for a total of 14 visit(s). Discharge Date: 11/07/20 Please see the following information for a summary of their discharge status. Subjective: Ready to be d/c doing well. Return to work full duty . Will wait to see surgeon. Bilateral Back Pain Intensity (Out of 10): 1 Left Lower Extremity Pain Intensity (Out of 10): 0 % Improvement: 90 Objective/Function: POSTURE: WFL. NEURO: + MILD ANR OTHERWISE DENIES PARATHESIA/TINGLING. MMT: QUADS/HAMS 4/5,BUT ANR AFFECTS KNEE EXTENSION. LUMBAR ROM: MIN LOSS,EXTENSION WNL,SIDE GLIDES WFL. GAIT: NORAM CRAIG Goal 1:: Patient to be I with HEP. Goal Progress: Goal Met Goal 2:: Patient to be I with posture/body mechanics. Goal Progress: Goal Met Goal 3:: Patient to decrease lumbar radiculopathy by 75% or > to improve function. Goal 4:: Pateint restore lumbar ROM for function of recovery without pain and - SLR and ANT rle Goal Progress: Progressing Goal 5:: Patient be d/c to prophalxis Goal Progress: Goal Met Goal 6:: Patient to improve back owestry score by 5-10 points or > to improve QO/RTW. Goal Progress: Goal Met Plan: d/c to [facility] Discharge Comments: [facility] If there are questions or concerns regarding this patient's physical therapy, please feel free to call me at [phone]. Thank you for the referral of this patient. Sincerely, Brett Baum, PT, Cert MDT, OCS
== END 2020-11-07 19:00 | disposition home or self-care (01) ==
LOC: PT 09:30
PROVIDERS: PCP Family Medicine; Referring Provider Family Medicine; Visit Provider Family Medicine
DX: M54.16 Radiculopathy, lumbar region (principal)
CPT/HCPCS: 87426; 97014; 97032; 97110; 97162; 97530; G0283

== ENCOUNTER → 2020-12-16 09:39 | Outpatient (CLI) | payer OTHER, SELFPAY ==
[2020-12-16 13:13] LABS: Free T3 2.9 pg/mL (2.18-3.98); T4 Free Direct 0.86 ng/dL (0.76-1.46); Thyroid Stim Hormone (TSH) 0.01 uIU/mL (0.358-3.74)
== END ==
PROVIDERS: PCP Family Medicine; Visit Provider Family Medicine
DX: E03.9 Hypothyroidism, unspecified (principal)
CPT/HCPCS: 36415; 84439; 84443; 84481

== ENCOUNTER → 2021-01-06 07:44 | Outpatient (CLI) | payer OTHER, SELFPAY ==
--- NOTE | 2021-01-06 07:48 | BI_ITS ---
MAMMOGRAPHY - BILATERAL SCREENING REASON FOR EXAM: Female, 50 years old. Routine annual screening examination. PERTINENT HISTORY: Non-contributory. TECHNIQUE: Digital bilateral breast dotty (3D mammographic acquisition) in the CC and MLO projections. 2-D mediolateral oblique (MLO) and craniocaudad (CC) views of both breasts were obtained. CAD: Full Field Digital Mammography with Computer Added Detection was performed. COMPARISON: Comparison is made with prior examination dated 01/04/2020 and 07/08/2018. FINDINGS: Breast Composition: The breasts are heterogeneously dense, which may obscure small masses. There are no dominant masses or suspicious calcifications. No other significant abnormalities are identified. There has been no significant change since the prior study. BI/SCRN MAMM (CAD)W/DOTTY BILAT IMPRESSION: Stable bilateral screening mammogram. Yearly follow-up mammogram recommended. (A) ASSESSMENT CATEGORY: BIRADS Category 1: Negative. A letter regarding these results will be sent to the patient by the facility within 30 days. Approximately 10% of breast cancers are not detected by mammography. A normal mammogram should not delay biopsy of a clinically suspicious abnormality. [id number] Electronically Signed: Cj Morrissey MD at 14:34 EDT , Service support ,
== END ==
PROVIDERS: PCP Family Medicine
DX: Z12.31 Encounter for screening mammogram for malignant neoplasm of breast (principal)
CPT/HCPCS: 77063; 77067

== ENCOUNTER → 2021-05-01 08:25 | Outpatient (CLI) | payer OTHER, SELFPAY ==
[2021-05-01 09:19] LABS: Absolute Lymphocyte Count 1.75 X10^3/uL (0.83-4.51); Absolute Neutrophil Count 2.5 X10^3/uL (2.0-7.7); Basophil# 0.07 X10^3/uL; Basophil% 1.4 % (0-1); Eosinophil# 0.18 X10^3/uL; Eosinophils% 3.7 % (0-5); Hematocrit 40.2 % (37-47); Lymphocyte # 1.75 X10^3/ul; Lymphocyte % 35.9 % (19-41); Mean Corp Hgb Conc 32.3 g/dL (32-36); Mean Corpuscular Hgb 30.5 pg (27.0-32.0); Mean Corpuscular Volume 94.4 fL (81-99); Mean Platelet Vol. 9.2 fl (6.2-12.0); Monocyte# 0.35 X10^3/uL; Monocyte% 7.2 % (0-10); NRBC Flagged by Analyzer 0 % (0-5); Neutrophil # 2.49 X10^3/uL (2.7-7.7); Neutrophil % 51.2 % (47-70); Platelet Count 268 K/mm3 (150-450); RBC Distribution Width CV 13.2 % (11.6-14.6); RBC Distribution Width SD 45.4 fl (35.1-43.9); Red Blood Count 4.26 M/mm3 (4.2-5.4); White Blood Count 4.9 K/mm3 (4.4-11.0)
[2021-05-01 09:26] LABS: Color, Urine Yellow (Yellow); Glucose, Dipstick Normal (Normal); Ketone-Dipstick Negative (Negative); Leukocyte Esterase-Dipstick Negative /ul (Negative); Nitrite-Dipstick Negative (Negative); Occult Blood-Urine 10 /ul (Negative); Protein-Dipstick Negative (Negative); Urine Bilirubin Dipstick Negative (Negative); Urine Clarity Sl. Cloudy (Clear); Urine Urobilinogen Normal (Normal)
[2021-05-01 09:55] LABS: ALB/GLOB Ratio 1.1 RATIO (0.9-2.4); AST(SGOT) 18 U/L (15-37); Alanine Aminotransfer ALT/SGPT 18 U/L (13-56); Albumin, Serum 3.6 g/dL (3.2-5.0); Alkaline Phosphatase 51 U/L (45-117); Anion Gap 9 (5-15); BUN 19 mg/dL (7-18); BUN/Creat Ratio 20.1 RATIO (10-20); Bilirubin, Direct 0.12 mg/dL (0.00-0.30); Calcium,Total 8.8 mg/dL (8.5-10.1); Chloride 103 mmol/L (98-107); Cholesterol 219 mg/dL (200); Creatinine, Serum 0.95 mg/dL (0.55-1.02); EST Glomerular Filtration Rate 67 mL/min (>60); Est Glom Filt Rate - Afr Amer 81 mL/min (>60); Globulin 3.3 g/dL (2.2-4.2); Glucose 94 mg/dL (74-106); High Density Lipoprotein 70 mg/dL; LDH 154 U/L (84-246); Phosphorus 3.2 mg/dL (2.5-4.9); Potassium 4.2 mmol/L (3.5-5.1); Protein, Total 6.9 g/dL (6.4-8.2); Sodium Level 139 mmol/L (136-145); Thyroid Stim Hormone (TSH) 6.27 uIU/mL (0.358-3.74); Triglycerides 77 mg/dL; Uric Acid 3.3 mg/dL (2.6-6.0); Very Low Density Lipoprotein 15 mg/dL (5-40)
== END ==
PROVIDERS: PCP Family Medicine; Referring Provider Family Medicine; Visit Provider Family Medicine
DX: E03.9 Hypothyroidism, unspecified (principal)
CPT/HCPCS: 84439; 84443; 84481

== ENCOUNTER → 2021-08-26 13:59 | Outpatient (CLI) | payer OTHER, SELFPAY ==
[2021-08-26 14:51] LABS: Color, Urine Yellow (Yellow); Glucose, Dipstick Normal (Normal); Ketone-Dipstick Negative (Negative); Leukocyte Esterase-Dipstick 500 /ul (Negative); Nitrite-Dipstick Negative (Negative); Occult Blood-Urine 50 /ul (Negative); Protein-Dipstick 15 mg/dl (Negative); Urine Bilirubin Dipstick Negative (Negative); Urine Clarity Clear (Clear); Urine Urobilinogen Normal (Normal); Urine pH 6.5 (5.0 - 8.0)
== END ==
PROVIDERS: PCP Family Medicine; Referring Provider Family Medicine; Visit Provider Family Medicine
DX: N39.0 Urinary tract infection, site not specified (principal)
CPT/HCPCS: 81002; 87077; 87086; 87088

== ENCOUNTER 2021-10-08 06:17 | Day surgery (SDC) | payer OTHER, SELFPAY ==
[2021-10-08 06:43] VITALS: BP 106/70; PULSE 73; RESP 16; TEMP 36.4; O2SAT 95; BMI 29.0
--- NOTE | 2021-10-08 07:10 | PCM.HP.BLA ---
History and Physical Date of Admission: 10/08/21 HPI HPI Chief Complaint: Colonoscopy Details: KRYSTEN MOLINA, is a 51-year-old woman with no specific past medical history except for mild anxiety and depression. She presents for screening colonoscopy. She is never had a colonoscopy in the past. She is not having any problems with her bowels including no constipation, diarrhea, bleeding. She has no family history of colorectal malignancy. She has not had any abdominal pain or cramping. Her weight is stable. All other sixteen review of systems are negative except as per body mentioned HPI ROS Const Constitutional: No other (As above) Exam Const General: cooperative, healthy appearing, comfortable and no acute distress Nutritional Appearance: average body habitus and well nourished Orientation: alert, awake and oriented x3 HENMT Head: normal to inspection Ears: hearing grossly normal bilaterally, external ears normal, TM's normal bilaterally and EAC's normal Nose: external nose normal, nares normal, septum normal and no nasal discharge Face and sinus: normal facial exam and face symmetric Mouth: oral mucosae normal, lip normal, tongue normal and oropharynx normal Eyes General: appearance normal, both eyes and all related structures Neck Neck: normal visual inspection, full ROM, no lymphadenopathy, no meningeal signs and supple Neck mass: No Thyroid: thyroid normal Lymphatic: no lymphadenopathy noted Chest Chest palpation & inspection: normal inspection of the chest Resp Effort & Inspection: normal respiratory effort, able to speak in complete sentences, symmetric chest movement and no cough Auscultation: Bilateral: Clear to Auscultation Cardio Palpation: normal PMI Rate: regular rate Rhythm: regular rhythm Heart Sounds: S1 normal, S2 normal, no gallops, no murmurs and no rubs Pulses: radial pulses present GI Inspection: normal to inspection Palpation: soft and no hepatosplenomegaly Skin Lesions: no lesions Neuro General: patient alert, patient awake, patient oriented x3 and gait normal Cognition: normal cognition Speech: speech normal Gait: normal gait Motor: muscle tone normal throughout Sensory Exam: no sensory deficits noted Extrem General: normal to inspection Psych Appearance: grossly normal Mental Status: mental status grossly normal Mood: congruent mood Affect: normal affect Speech and Movement: speech and movement normal Attitude: cooperative Thought Process: normal Thought Content: normal Judgment: judgment good Assessment and Plan Assessment and Plan 51-year-old arrives here for screening colonoscopy. She was explained alternatives, benefits, risks including not withstanding bleeding, infection, sepsis, perforation, need for emergent surgery and . She will have an ASA one.
--- NOTE | 2021-10-08 07:15 | COLBX_PTH ---
PATIENT: KRYSTEN GARCIA LOC: EN U#:[id number] AGE/SX: 51/F ROOM: RE10/08/[address]: Dr. Bebeto Mcadams DO : 1970 BED: DIS: 10/08/2021 SPEC #: [id number] RECD: 10/08/21 09:20 STATUS: RICARDO REHolly #: [id number] RUBY: 10/08/21 07:[address]: Bebeto Mcadams DEPT: SURGICAL PATHOLOGY RECD BY: Edmond Medellin ENTERED: 10/08/21 10:54 SP TYPE: COLON BX OTHR DR: Dr. Helen Avilez DO Tissues: Sigmoid colon biopsy Procedures: Surgery Specimen Level IV HEADER OPERATION: Colonoscopy, open access PRE-OP DIAGNOSIS: Screening colonoscopy TISSUE SUBMITTED: Sigmoid polyp MICROSCOPIC DIAGNOSIS Sigmoid colon polyp, biopsy: Fragments of benign colonic mucosa with recent hemorrhage. Fecal debris. See comment. AM:salas 10/09/2021 COMMENT Neither hyperplastic nor adenomatous change is identified. Clinical correlation is suggested. MICROSCOPIC DESCRIPTION Slides are reviewed. GROSS DESCRIPTION Received in fixative is one container labeled with the patient's name and designated sigmoid polyp. The specimen consists of multiple irregular fragments of light paiz soft tissue that in aggregate measure 1 x 0.5 x 0.1 cm. The specimen is totally submitted in one cassette. / AM:salas 10/08/21 TC:5 CPT: 79824
[2021-10-08 07:51] VITALS: BP 106/70; BP 90/57; PULSE 60; RESP 14; TEMP 36.1; O2SAT 100
[2021-10-08 07:55] VITALS: BP 106/70; BP 88/60; PULSE 60; RESP 14; O2SAT 100
--- NOTE | 2021-10-08 07:57 | OP.COLON_ITS ---
Patient Name: Estrellita Price Procedure Date: 10/08/2021 7:10 AM Date of : 1970 Age: 51 Procedure: Colonoscopy Indications: Colon cancer screening in patient at increased risk: Family history of 1st-degree relative with colon polyps before age 60 years, Colon cancer screening in patient at increased risk: Family history of colon polyps in multiple 1st-degree relatives, Incidental - Follow-up for history of adenomatous polyps in the colon Providers: Bebeto Mcadams DO Medicines: See the Anesthesia note for documentation of the administered medications Patient Profile: This is a 51 year old female. Refer to note in patient chart for documentation of history and physical. Last Colonoscopy: more than 3 years ago. Complications: No immediate complications. Procedure: Pre-Anesthesia Assessment: - Prior to the procedure, a History and Physical was performed, and patient medications and allergies were reviewed. The patient is competent. The risks and benefits of the procedure and the sedation options and risks were discussed with the patient. All questions were answered and informed consent was obtained. Patient identification and proposed procedure were verified by the physician in the pre-procedure area. Mental Status Examination: alert and oriented. Airway Examination: normal oropharyngeal airway and neck mobility. Respiratory Examination: clear to auscultation. CV Examination: normal. Prophylactic Antibiotics: The patient does not require prophylactic antibiotics. Prior Anticoagulants: The patient has taken no previous anticoagulant or antiplatelet agents. After reviewing the risks and benefits, the patient was deemed in satisfactory condition to undergo the procedure. The anesthesia plan was to use moderate sedation / analgesia (conscious sedation). Immediately prior to administration of medications, the patient was re-assessed for adequacy to receive sedatives. The heart rate, respiratory rate, oxygen saturations, blood pressure, adequacy of pulmonary ventilation, and response to care were monitored throughout the procedure. The physical status of the patient was re-assessed after the procedure. After I obtained informed consent, the scope was passed under direct vision. Throughout the procedure, the patient's blood pressure, pulse, and oxygen saturations were monitored continuously. The Colonoscope was introduced through the anus and advanced to the cecum, identified by appendiceal orifice and ileocecal valve. The ileocecal valve, appendiceal orifice, and rectum were photographed. The entire colon was examined. Moderate Sedation: Moderate (conscious) sedation was administered by the endoscopy nurse and supervised by the endoscopist. The patient's oxygen saturation, heart rate, blood pressure and response to care were monitored. Total physician intraservice time was 15 minutes. Scope In: 7:18:11 AM Scope Withdrawal Time 0 hours 14 minutes 38 seconds Scope Out: 7:45:42 AM Total Procedure Duration Time 0 hours 27 minutes 31 seconds Findings: The perianal and digital rectal examinations were normal. A 5 mm polyp was found in the proximal sigmoid colon. The polyp was sessile. The polyp was removed with a hot snare. Resection and retrieval were complete. Verification of patient identification for the specimen was done. Retroflexion in the right colon was performed. The exam was otherwise without abnormality on direct and retroflexion views. Impression: - One 5 mm polyp in the proximal sigmoid colon, removed with a hot snare. Resected and retrieved. - The examination was otherwise normal on direct and retroflexion views. Recommendation: - Discharge patient to home. - Resume previous diet. - Continue present medications. - Await pathology results. - Repeat colonoscopy in 5 years for surveillance based on pathology results. - Return to GI office PRN. Procedure Code(s): --- Professional --- 54454, Colonoscopy, flexible; with removal of tumor(s), polyp(s), or other lesion(s) by snare technique G0500, Moderate sedation services provided by the same physician or other qualified health day care center director performing a gastrointestinal endoscopic service that sedation supports, requiring the presence of an independent trained observer to assist in the monitoring of the patient's level of consciousness and physiological status; initial 15 minutes of intra-service time; patient age 5 years or older (additional time may be reported with 00853, as appropriate) CPT copyright 2017 [employer]. All rights reserved. The codes documented in this report are preliminary and upon medical biller/coder review may be revised to meet current compliance requirements. Bebeto Mcadams DO 10/08/2021 7:57:01 AM This report has been signed electronically. Number of Addenda: 1 Note Initiated On: 10/08/2021 7:10 AM Addendum Number: 1 Addendum Date: 07/01/2022 7:15:56 AM MAC was used instead of moderate sedation for the patient. Bebeto Mcadams DO 07/01/2022 7:16:00 AM This report has been signed electronically.
--- NOTE | 2021-10-08 07:58 | OP.CCLET_ITS ---
07/01/2022 Helen Avilez [address] [place] [address] Re : Colonoscopy procedure for Estrellita Masters Dear Dr. Avilez This procedure was performed on Friday, October 08, 2021. My impressions and recommendations are as follows: Impressions : - One 5 mm polyp in the proximal sigmoid colon, removed with a hot snare. Resected and retrieved. - The examination was otherwise normal on direct and retroflexion views. Recommendations : - Discharge patient to home. - Resume previous diet. - Continue present medications. - Await pathology results. - Repeat colonoscopy in 5 years for surveillance based on pathology results. - Return to GI office PRN. My findings are described in the full procedure note, which is enclosed. If I can be of further assistance, please feel free to contact me at . Sincerely, Bebeto Mcadams, 10/08/2021 7:57:01 AM This report has been signed electronically.
[2021-10-08 08:00] VITALS: BP 106/70; BP 94/67; PULSE 65; RESP 16; O2SAT 100
[2021-10-08 08:05] VITALS: BP 106/70; BP 94/61; PULSE 60; RESP 14; TEMP 36.1; O2SAT 100
[2021-10-08 08:20] VITALS: BP 106/70
== END 2021-10-08 08:52 | disposition home or self-care (01) ==
LOC: EN 06:18 → AC 06:19
PROVIDERS: PCP Family Medicine; Referring Provider Family Medicine; Visit Provider Internal Medicine Gastroenterology
PROC: 0DJD8ZZ Inspection of Lower Intestinal Tract, Via Natural or Artificial Opening Endoscopic (ICD-10-PCS; CPT 45378; principal; 2021-10-08 07:10)
DX: Z12.11 Encounter for screening for malignant neoplasm of colon (principal); K63.5 Polyp of colon; E07.9 Disorder of thyroid, unspecified; F32.A Depression, unspecified; F41.9 Anxiety disorder, unspecified; Z79.899 Other long term (current) drug therapy; Z86.010 Personal history of colon polyps; Z83.71 Family history of colonic polyps; Z20.822 Contact with and (suspected) exposure to COVID-19
CPT/HCPCS: 45385; 87426; 88305; C9803; J7120; J2405

== ENCOUNTER → 2022-02-16 | Outpatient (CLI) | payer OTHER, SELFPAY ==
--- NOTE | 2022-02-16 07:52 | BI_ITS ---
MAMMOGRAPHY - BILATERAL SCREENING 3-D TOMOSYNTHESIS REASON FOR EXAM: Female, 51 years old. SCREENING PERTINENT HISTORY: No significant family history. TECHNIQUE: 2-D mammograms and 3-D Tomosynthesis of the breast (s) were performed. CAD was performed. COMPARISON: 01/06/2021 FINDINGS: The breast composition is heterogeneously dense that can obscure small breast masses. Scattered benign calcifications are seen. 1 cm oval obscured equal density mass in the upper outer quadrant right breast at posterior depth and focal compression views recommended for further evaluation. No dominant mass in left breast. No suspicious calcifications.. No architectural distortion is identified. There is no skin thickening or retraction. BI/SCRN MAMM (CAD)W/DOTTY BILAT IMPRESSION: 1 cm oval obscured equal density mass in the upper outer quadrant right breast at posterior depth and focal compression views are recommended for further evaluation. ASSESSMENT CATEGORY: BIRADS Category 0: Incomplete. Need additional imaging evaluation as above. A letter regarding these results will be sent to the patient by the facility within 30 days. FOLLOW UP RECOMMENDATION: Additional imaging recommended as above. (E) Approximately 10% of breast cancers are not detected by mammography. A normal mammogram should not delay biopsy of a clinically suspicious abnormality. Electronically Signed: Jesus Callahan MD at 9:31 EDT ,
== END | disposition home or self-care (01) ==
LOC: OPBI 07:47
PROVIDERS: PCP Family Medicine
DX: Z12.31 Encounter for screening mammogram for malignant neoplasm of breast (principal); N63.11 Unspecified lump in the right breast, upper outer quadrant
CPT/HCPCS: 77063; 77067

== ENCOUNTER → 2022-02-23 | Outpatient (CLI) | payer OTHER, SELFPAY ==
--- NOTE | 2022-02-23 09:29 | BI_ITS ---
MAMMOGRAPHY - UNILATERAL DIAGNOSTIC: RIGHT BREAST REASON FOR EXAM: Female, 51 years old. Abnormal screening mammogram. PERTINENT HISTORY: Non-contributory. TECHNIQUE: Compression spot views of the right breast in mediolateral oblique and craniocaudad projections were obtained. CAD: Full Field Digital Mammography with Computer Added Detection was performed. COMPARISON: Comparison is made with prior study 02/16/2022. FINDINGS: Breast Composition: The breasts are heterogeneously dense, which may obscure small masses. Persistent 4.7 mm x 4.6 mm well-defined nodule in the upper lateral aspect of the right breast. Correlation with ultrasound is recommended. No other significant abnormalities are identified. BI/DIAG MAMM W/CAD, UNILAT IMPRESSION: Persistent 4.7 mm x 4.6 mm well-defined nodule in the upper lateral aspect of the right breast. Correlation with ultrasound is recommended. ASSESSMENT CATEGORY: BIRADS Category 0: Incomplete. Need additional imaging evaluation. A letter regarding these results will be sent to the patient by the facility within 30 days. Approximately 10% of breast cancers are not detected by mammography. A normal mammogram should not delay biopsy of a clinically suspicious abnormality. Electronically Signed: Cj Morrissey MD at 12:30 EDT ,
--- NOTE | 2022-02-23 09:29 | US_ITS ---
STUDY: ULTRASOUND BREAST - RIGHT REASON FOR EXAM: Female, 51 years old. Abnormal screening mammogram. TECHNIQUE: Axial and longitudinal images of the RIGHT breast were performed with a high resolution ultrasound transducer. # OF IMAGES: 8 COMPARISON: Comparison is made with prior mammogram done earlier in the day as well as prior sonogram dated 03/20/2016. FINDINGS: RIGHT Breast: The mammographic abnormality corresponds to a 9 mm x 5 mm x 5 mm hypoechoic nodule at the 10 o''clock position the breast at 3 cm from nipple. This is not a cyst. This may represent a lymph node although biopsy is recommended. . US/Breast Limited Unilateral IMPRESSION: The mammographic abnormality corresponds to a 5 mm x 5 mm 9 mm hypoechoic nodule at the 10 o''clock position breast at 3 cm from the nipple. This may represent a small lymph node although biopsy recommended. ASSESSMENT CATEGORY: BIRADS Category 4: Suspicious - Biopsy Should Be Considered. A letter regarding these results will be sent to the patient by the facility within 30 days. Electronically Signed: Cj Morrissey MD at 12:32 EDT ,
== END | disposition home or self-care (01) ==
PROVIDERS: PCP Family Medicine
DX: R92.2 Inconclusive mammogram (principal); N63.11 Unspecified lump in the right breast, upper outer quadrant
CPT/HCPCS: 76642; 77065

== ENCOUNTER → 2022-03-05 | Outpatient (CLI) | payer OTHER, SELFPAY | END | disposition home or self-care (01) | PROVIDERS: PCP Family Medicine; Visit Provider Surgery | DX: Z00.00 Encounter for general adult medical examination without abnormal findings (principal) ==

== ENCOUNTER → 2022-03-16 | Outpatient (CLI) | payer OTHER, SELFPAY ==
--- NOTE | 2022-03-16 11:04 | MRI_ITS ---
STUDY: BILATERAL BREAST MR WITHOUT AND WITH CONTRAST REASON FOR EXAM: Female, 51 years old. Abnormal breast imaging. TECHNIQUE: Multi-sequence multi-echo imaging of both breasts was performed with a dedicated breast coil. T1-weighted and T2-weighted images were performed before the administration of contrast. T1-weighted images were also performed after the intravenous administration of 17 mL of Dotarem contrast. COMPARISON: Bilateral mammograms dated 01/04/2020, 01/06/2021 and 02/16/2022. Right diagnostic mammogram dated 02/23/2022 and right breast ultrasound dated 02/23/2022. FINDINGS: RIGHT BREAST: The breast tissue is scattered fibroglandular densities with minimal background enhancement. 7 mm in diameter ovoid mass corresponding to the mammographic and ultrasonographic findings. Mass shows rapid enhancement with washout. The lesion may represent a lymph node. However, correlating this finding with the mammographic and ultrasonographic findings, ultrasound-guided biopsy would be appropriate, as identified on the right breast ultrasound report. If a biopsy is not obtained, a six-month follow-up right mammogram and right breast ultrasound to establish stability would be appropriate. LEFT BREAST: The breast tissue is scattered fibroglandular densities with minimal background enhancement. There are no abnormal enhancing masses or areas of non-mass enhancement in the left breast. There are no enlarged or abnormal lymph nodes. There is no abnormality in the visualized regions of the chest or liver. MRI/Breast Bilateral W/O and W IMPRESSION: 7 mm in diameter rapidly enhancing and rapid washout of the weighted mass, most likely representing a lymph node. However, correlating with the mammographic and ultrasonographic findings, ultrasound-guided biopsy is recommended. If a decision was made not to biopsy the mass, a 6 month follow-up right mammogram with a right breast ultrasound is recommended to assure the stability of this lesion. CATEGORY: BIRADS Category 4: Suspicious - Biopsy Should Be Considered. A letter regarding these results will be sent to the patient by the facility within 30 days. Electronically Signed: Roque Dwyer MD at 11:25 EDT ,
== END | disposition home or self-care (01) ==
LOC: MRI 11:04
PROVIDERS: PCP Family Medicine; Visit Provider Surgery
DX: N63.10 Unspecified lump in the right breast, unspecified quadrant (principal); R92.8 Other abnormal and inconclusive findings on diagnostic imaging of breast
CPT/HCPCS: 77049; A9575; A4216; C8908

== ENCOUNTER → 2022-06-30 | Outpatient (CLI) | payer OTHER, SELFPAY ==
[2022-06-30 09:10] LABS: Free T3 2.9 pg/mL (2.18-3.98); T4 Free Direct 0.58 ng/dL (0.76-1.46); Thyroid Stim Hormone (TSH) 0.48 uIU/mL (0.358-3.74)
== END | disposition home or self-care (01) ==
LOC: LAB 07:45
PROVIDERS: PCP Family Medicine; Referring Provider Family Medicine; Visit Provider Family Medicine
DX: E03.9 Hypothyroidism, unspecified (principal)
CPT/HCPCS: 36415; 84439; 84443; 84481

== ENCOUNTER → 2022-08-26 | Outpatient (CLI) | payer OTHER, SELFPAY ==
--- NOTE | 2022-08-26 08:23 | BI_ITS ---
MAMMOGRAPHY - UNILATERAL DIAGNOSTIC: RIGHT BREAST REASON FOR EXAM: Female, 51 years old. 6 month follow-up examination. PERTINENT HISTORY: Non-contributory. TECHNIQUE: Digital unilateral breast lizette (3D mammographic acquisition) in the CC and MLO projections. 2-D mediolateral oblique (MLO) and craniocaudad (CC) views of both breasts were obtained. CAD: Full Field Digital Mammography with Computer Added Detection was performed. COMPARISON: Comparison is made with prior mammogram dated 02/23/2022 and 02/17/2020. FINDINGS: Breast Composition: The breasts are heterogeneously dense, which may obscure small masses. There are no dominant masses or suspicious calcifications. Stable 5 mm x 5 mm well-defined nodule in the upper lateral aspect of the right breast. Correlation with ultrasound is recommended. No other significant abnormalities are identified. BI/DIAG MAMM W/CAD, UNILAT IMPRESSION: Stable examination. Correlation with ultrasound is recommended. ASSESSMENT CATEGORY: BIRADS Category 0: Incomplete. Need additional imaging evaluation. A letter regarding these results will be sent to the patient by the facility within 30 days. Approximately 10% of breast cancers are not detected by mammography. A normal mammogram should not delay biopsy of a clinically suspicious abnormality. Electronically Signed: Cj Morrissey MD at 10:06 EDT ,
--- NOTE | 2022-08-26 08:23 | US_ITS ---
STUDY: ULTRASOUND BREAST - RIGHT REASON FOR EXAM: Female, 51 years old. Abnormal screening mammogram. TECHNIQUE: Axial and longitudinal images of the RIGHT breast were performed with a high resolution ultrasound transducer. # OF IMAGES: 58 COMPARISON: Comparison is made with prior mammogram done earlier in today as well as prior sonogram of the right breast dated 02/23/2022. FINDINGS: RIGHT Breast: Stable 8 mm x 5 mm x 4 mm hypoechoic slightly ill-defined nodule at the 10 o''clock position of the breast at 3 cm from the nipple. 4 mm x 5 mm x 3 mm cyst at the 9 o''clock position of the breast and for sinus on the US/Breast Limited Unilateral IMPRESSION: Stable hypoechoic slightly ill-defined nodule at the 10 o''clock position of the breast at 3 cm from the nipple. Biopsy recommended. ASSESSMENT CATEGORY: BIRADS Category 4: Suspicious - Biopsy Should Be Considered. A letter regarding these results will be sent to the patient by the facility within 30 days. Electronically Signed: Cj Morrissey MD at 10:27 EDT ,
== END | disposition home or self-care (01) ==
LOC: OPBI 08:22
PROVIDERS: PCP Family Medicine; Visit Provider Surgery
DX: N63.11 Unspecified lump in the right breast, upper outer quadrant (principal)
CPT/HCPCS: 76642; 77061; 77065; G0279

== ENCOUNTER → 2022-09-11 | Outpatient (CLI) | payer OTHER, SELFPAY ==
--- NOTE | 2022-09-11 | BRBX_PTH ---
PATIENT: KRYSTEN GARCIA LOC: [facility] U#:[id number] AGE/SX: 52/F ROOM: RE09/11/[address]: Dr. Javi Feliz MD : 1970 BED: DIS: 09/11/2022 SPEC #: [id number] RECD: 09/11/22 15:05 STATUS: RICARDO REHolly #: [id number] RUBY: 09/11/22 00:[address]: Javi Feliz DEPT: SURGICAL PATHOLOGY RECD BY: Lindsay Gomez ENTERED: 09/14/22 10:16 SP TYPE: BREAST BX OTHR DR: Dr. Helen Avilez, DO Tissues: Right breast, NOS Procedures: Surgery Specimen Level IV HEADER OPERATION: Right breast biopsy PRE-OP DIAGNOSIS: Right breast mass TISSUE SUBMITTED: Right breast 10 o?clock, 3 cm from nipple ISCHEMIC TIME: 1 minute FIXATION TIME: 76.5 hours MICROSCOPIC DIAGNOSIS Right breast mass, core biopsy: Mild duct ectasia. Focal intraductal hyperplasia without atypia. No evidence of malignancy. AM:salas 09/15/2022 MICROSCOPIC DESCRIPTION Slides are reviewed. GROSS DESCRIPTION Received in fixative is one container labeled with the patient's name and designated left breast. The specimen consists of multiple elongated fragments of paiz-yellow fibroadipose tissue that in aggregate measure 2 x 0.5 x 0.1 cm. The entire specimen is submitted in one cassette. / SJ:salas 09/14/2022 TC:5 CPT: 21779
--- NOTE | 2022-09-11 13:40 | US_ITS ---
STUDY: ULTRASOUND BREAST - RIGHT REASON FOR EXAM: Female, 52 years old. Images of the right breast biopsy performed by Dr. Feliz. TECHNIQUE: Axial and longitudinal images of the RIGHT breast were performed with a high resolution ultrasound transducer. Pre and post biopsy images were obtained. # OF IMAGES: 25 COMPARISON: Preoperative right breast ultrasound images dated August 26, 2022. FINDINGS: RIGHT Breast: Multiple images of the right breast show prior lesion with biopsy needle placed through the lesion. No complications. US/US Breast Biopsy 1st Lesion IMPRESSION: Biopsy images of right breast as described. Electronically Signed: Roque Dwyer, at 10:40 EST ,
--- NOTE | 2022-09-11 15:18 | PCM.OPRPT ---
Report of Operation Date of Procedure: 09/11/22 Pre-Operative Diagnosis: Right breast BI-RADS 4 lesion Post-Operative Diagnosis: Same Surgery/Procedure Performed:: Ultrasound-guided core needle biopsy of the right breast lesion Specimen's removed: Right breast biopsy Description of Procedure: The right breast was imaged in the lesion was localized. Lateral to this area of skin was prepped and draped and then injected with local anesthetic. A small evelyn was made with a scalpel. Under ultrasound guidance the 14-gauge biopsy needle was placed into the mass several times for biopsies and then a clip was placed into the mass. Steri-Strip management placed over the incision. Patient tolerated procedure well.
== END | disposition home or self-care (01) ==
LOC: OPUS 13:35
PROVIDERS: PCP Family Medicine; Referring Provider Surgery; Visit Provider Surgery
DX: N63.10 Unspecified lump in the right breast, unspecified quadrant (principal)
CPT/HCPCS: 19083; 88305

== ENCOUNTER → 2022-10-21 | Outpatient (CLI) | payer OTHER, SELFPAY ==
--- NOTE | 2022-10-21 08:12 | MRI_ITS ---
EXAM: MR LEFT LOWER EXTREMITY WITHOUT INTRAVENOUS CONTRAST, HIP CLINICAL INDICATION: LEFT HIP PAIN -- JOINT DISORDER LEFT HIP TECHNIQUE: Multiplanar and multisequence MR images of the left hip without intravenous contrast. This report was created using [employer] report generation technology. COMPARISON: September 12, 2020 FINDINGS: TENDONS: FLEXORS: Unremarkable. Intact. EXTENSORS/HAMSTRING: Unremarkable. Intact. ABDUCTORS: Unremarkable. Intact. ADDUCTORS: Unremarkable. Intact. ROTATORS: Unremarkable. Intact. MUSCLES: Muscles are normal. FLUID: No bursitis. No joint effusion. LABRUM: No gross evidence for any acetabular labral tearing. CARTILAGE: Unremarkable. Articular cartilage intact. BONES/JOINTS: No obvious recent fractures or any abnormal marrow signal alterations. Physiologic amounts of joint fluid bilaterally. SI joints and pubic symphysis unremarkable. No femoral neck fracture. No avascular necrosis of the femoral head. No sacral insufficiency fracture. OTHER SOFT TISSUES: Tendons are intact. INTRAPERITONEAL SPACE: No free fluid in the pelvis. OTHER FINDINGS: Neurovascular structures are unremarkable. MRI/Lower Ext Joint Only (Routine) IMPRESSION: No findings involving the left hip to explain the clinical presentation. Electronically Signed: Phu Vallejo MD at 2:12 EST ,
== END | disposition home or self-care (01) ==
LOC: MRI 07:57
PROVIDERS: PCP Family Medicine; Referring Provider Specialist; Visit Provider Specialist
DX: M25.552 Pain in left hip (principal); M25.452 Effusion, left hip; M25.852 Other specified joint disorders, left hip
CPT/HCPCS: 73721

== ENCOUNTER → 2023-03-18 | Outpatient (CLI) | payer OTHER, SELFPAY ==
--- NOTE | 2023-03-18 14:05 | US_ITS ---
STUDY: ULTRASOUND BREAST - RIGHT REASON FOR EXAM: Female, 52 years old. Six-month follow-up of right breast lump. TECHNIQUE: Axial and longitudinal images of the RIGHT breast were performed with a high resolution ultrasound transducer. # OF IMAGES: 28 COMPARISON: Comparison is made with prior sonogram dated September 11, 2022. FINDINGS: RIGHT Breast: There is a 7 mm x 6 mm x 4 mm well-defined hypoechoic solid nodule at the 10:00 position in the breast at 3 cm from nipple. A tissue clip marker is seen within. There is also evidence of a 5 mm x 6 mm x 4 mm well-defined hypoechoic nodular density just deep to the skin surface in the region of the right axilla. Patient said that this is a chronic finding. US/Breast Limited Unilateral IMPRESSION: Stable 7 mm x 6 mm x 4 mm well-defined hypoechoic solid nodule at the 10:00 position of the breast at 3 cm from the nipple. A tissue clip marker seen within it. 5 mm x 6 mm x 4 mm well-defined hypoechoic nodule just deep to the skin surface in the right axillary region suggestive of a possible sebaceous cyst ASSESSMENT CATEGORY: BIRADS Category 2: Benign. A letter regarding these results will be sent to the patient by the facility within 30 days. Electronically Signed: Cj Morrissey MD at 14:49 EDT ,
--- NOTE | 2023-03-18 14:06 | BI_ITS ---
MAMMOGRAPHY - BILATERAL SCREENING REASON FOR EXAM: Female, 52 years old. Routine annual screening examination. PERTINENT HISTORY: Non-contributory. Ultrasound-guided right breast biopsy. TECHNIQUE: Digital bilateral breast dotty (3D mammographic acquisition) in the CC and MLO projections. 2-D mediolateral oblique (MLO) and craniocaudad (CC) views of both breasts were obtained. CAD: Full Field Digital Mammography with Computer Added Detection was performed. COMPARISON: Comparison is made with prior study dated February 16, 2022 and February 23, 2022. FINDINGS: Breast Composition: The breasts are heterogeneously dense, which may obscure small masses. There are no dominant masses or suspicious calcifications. A tissue clip marker is seen in the superior lateral anterior aspect of the right breast. Stable 5.1 mm well-defined nodule in the superior lateral aspect of the right breast. No other significant abnormalities are identified. There has been no significant change since the prior study. BI/SCRN MAMM (CAD)W/DOTTY BILAT IMPRESSION: Stable bilateral screening mammogram. Yearly follow-up mammogram recommended. (A) ASSESSMENT CATEGORY: BIRADS Category 2: Benign. A letter regarding these results will be sent to the patient by the facility within 30 days. Approximately 10% of breast cancers are not detected by mammography. A normal mammogram should not delay biopsy of a clinically suspicious abnormality. [id number] Electronically Signed: Cj Morrissey MD at 10:55 EDT ,
== END | disposition home or self-care (01) ==
PROVIDERS: PCP Family Medicine; Referring Provider Nurse Practitioner Women's Health; Visit Provider Nurse Practitioner Women's Health
DX: Z12.31 Encounter for screening mammogram for malignant neoplasm of breast (principal); N63.10 Unspecified lump in the right breast, unspecified quadrant
CPT/HCPCS: 76642; 77063; 77067

== ENCOUNTER → 2023-04-29 | Outpatient (CLI) | payer OTHER, SELFPAY ==
[2023-04-29 10:58] LABS: Free T3 2.3 pg/mL (2.18-3.98); T4 Free Direct 0.72 ng/dL (0.76-1.46); Thyroid Stim Hormone (TSH) 0.28 uIU/mL (0.358-3.74)
== END | disposition home or self-care (01) ==
PROVIDERS: PCP Family Medicine; Referring Provider Family Medicine; Visit Provider Family Medicine
DX: E03.9 Hypothyroidism, unspecified (principal)
CPT/HCPCS: 36415; 84439; 84443; 84481

== ENCOUNTER → 2023-08-30 | Outpatient (CLI) | payer OTHER, SELFPAY ==
[2023-08-30 17:52] LABS: Progesterone Level 0.24 ng/mL (See Comment)
[2023-08-30 19:10] LABS: Estradiol < 11.0 pg/mL; Free T3 3.4 pg/mL (2.18-3.98); Thyroid Stim Hormone (TSH) 0.04 uIU/mL (0.358-3.74)
== END | disposition home or self-care (01) ==
LOC: BFHLAB 13:59
PROVIDERS: PCP Family Medicine; Referring Provider Family Medicine; Visit Provider Family Medicine
DX: E03.9 Hypothyroidism, unspecified (principal); N92.4 Excessive bleeding in the premenopausal period
CPT/HCPCS: 36415; 82670; 84144; 84439; 84443; 84481

== ENCOUNTER → 2023-11-10 | Outpatient (CLI) | payer OTHER, SELFPAY ==
[2023-11-10 13:24] LABS: T4 Free Direct 0.67 ng/dL (0.76-1.46); Thyroid Stim Hormone (TSH) 0.68 uIU/mL (0.358-3.74)
== END | disposition home or self-care (01) ==
LOC: LAB 08:05
PROVIDERS: PCP Family Medicine; Referring Provider Family Medicine; Visit Provider Family Medicine
DX: E03.9 Hypothyroidism, unspecified (principal)
CPT/HCPCS: 36415; 84439; 84443; 84481

== ENCOUNTER → 2024-01-25 | Outpatient (CLI) | payer OTHER, SELFPAY ==
--- NOTE | 2024-01-25 12:37 | CT_ITS ---
STUDY: LOW DOSE CT LUNG CANCER SCREENING REASON FOR EXAM: Female, 53 years old. Lung cancer screening -- and gt;20 pk yr hx;former smoker; asymptomatic RADIATION DOSAGE (If Supplied By Facility): CTDIvol = ( 3.02 ) mGy, DLP = ( 88.75 ) mGycm TECHNIQUE: No contrast was administered. Low dose technique was utilized (average mAS-38 and kVp 120). 1.25 mm axial source images with a slice interval of 1.25-mm were reconstructed in lung windows. 2.5 mm axial source images with a slice interval of 2.5-mm were reconstructed in lung windows. 5.0 mm axial source images with a slice interval of 5.0-mm were reconstructed in soft tissue windows. COMPARISON: None. NODULES: There is a 7.5 mm noncalcified nodule in the posterior medial aspect of the superior segment of the right lower lobe as seen on axial image #109 and coronal image #198. This may represent a focal area of scarring. A 6 month follow-up examination is suggested. Emphysema: Mild degree of emphysematous changes. Endobronchial lesion: None Aorta: Unremarkable CORONARY ARTERIES: Coronary artery calcification is not seen. Heart: Unremarkable Pulmonary artery: Unremarkable Mediastinal nodes: Unremarkable Other chest and abdominal findings: CT/Low Dose CT Lung Screening IMPRESSION: Lung-RADS category 3 - Continue screening with LDCT in 6 months. IMPORTANT NOTES FOR USE: ACR Lung-RADS Version 1.1 Assessment Categories Release Date: 2018 Category: Coded 0-4 bases on nodule(s) with highest degree of suspicion. Negative screen is defined as categories 1 and 2; a positive screen is defined as categories 3 and 4. Category 3 and 4A nodules that are unchanged on interval CT should be coded as category 2, and individuals returned to screening in 12 months. Category 4X: Category 3 or 4 nodules with additional imaging findings that increase the suspicion of lung cancer, such as spiculation, GGN that doubles in size in 1 year, enlarged lymph notes, etc. Category Modifiers: S (significant finding unrelated to lung cancer) Electronically Signed: Cj Morrissey MD at 13:39 EDT ,
== END | disposition home or self-care (01) ==
LOC: CT 12:36
PROVIDERS: PCP Family Medicine; Referring Provider Nurse Practitioner Family; Visit Provider Nurse Practitioner Family
DX: Z12.2 Encounter for screening for malignant neoplasm of respiratory organs (principal); Z87.891 Personal history of nicotine dependence
CPT/HCPCS: 71271

== ENCOUNTER → 2024-02-29 | Outpatient (CLI) | payer OTHER, SELFPAY ==
--- NOTE | 2024-02-29 16:14 | US_ITS ---
STUDY: ULTRASOUND OF THE FEMALE PELVIS - COMPLETE REASON FOR EXAM: Female, 53 years old. POST ELIZABETH BLEEDING LMP: Menopause TECHNIQUE: Transabdominal and Transvaginal TECHNICAL QUALITY: Adequate. COMPARISON: None. FINDINGS: The uterus is anteverted and is in a midline position. The uterus measures 7.7 x 4.3 x 3.9 cm. Normal uterine cervix. The endometrium measures 4 mm in thickness, and is heterogeneous (striated). There is no demonstrated endometrial mass. There is no demonstrated myometrial mass. I.U.D. - The patient does not have an I.U.D. The right ovary is non-visualized.. The left ovary is visualized. The left ovary measures 1.9 x 1.8 x 1.2 cm. There is no left ovarian cyst or ovarian mass. There is no visualized left adnexal mass or complex lesion. There is normal arterial and normal venous vascularity. There is no fluid in the cul-de-sac. The pre void volume of the bladder was ml. The post void volume of the bladder was ml. Polycystic ovary disease: No. US/Pelvic w/ Transvaginal IMPRESSION: Heterogeneous endometrium hysteroscopy may be useful. Electronically Signed: Jesus Callahan MD at 23:57 EDT ,
== END | disposition home or self-care (01) ==
LOC: US 16:12
PROVIDERS: PCP Family Medicine; Referring Provider Nurse Practitioner Women's Health; Visit Provider Nurse Practitioner Women's Health
DX: N95.0 Postmenopausal bleeding (principal)
CPT/HCPCS: 76830; 76856

== ENCOUNTER → 2024-03-21 | Outpatient (CLI) | payer OTHER, SELFPAY ==
--- NOTE | 2024-03-21 09:13 | BI_ITS ---
MAMMOGRAPHY - BILATERAL SCREENING REASON FOR EXAM: Female, 53 years old. Routine annual screening examination. PERTINENT HISTORY: Non-contributory. History of prior right ultrasound-guided breast biopsy. TECHNIQUE: Digital bilateral breast dotty (3D mammographic acquisition) in the CC and MLO projections. 2-D mediolateral oblique (MLO) and craniocaudad (CC) views of both breasts were obtained. CAD: Full Field Digital Mammography with Computer Added Detection was performed. COMPARISON: Comparison is made with prior study March 18, 2023 and August 26, 2022. FINDINGS: Breast Composition: The breasts are heterogeneously dense, which may obscure small masses. There are no dominant masses or suspicious calcifications. A tissue clip marker is once again seen in the superior lateral anterior aspect of the right breast. Stable 5.1 mm well-defined nodule in the upper lateral aspect of the right breast suggestive of a possible small cyst or lymph node. No other significant abnormalities are identified. There has been no significant change since the prior study. BI/SCRN MAMM (CAD)W/DOTTY BILAT IMPRESSION: Stable bilateral screening mammogram. Yearly follow-up mammogram recommended. (A) ASSESSMENT CATEGORY: BIRADS Category 2: Benign. A letter regarding these results will be sent to the patient by the facility within 30 days. Approximately 10% of breast cancers are not detected by mammography. A normal mammogram should not delay biopsy of a clinically suspicious abnormality. [id number] Electronically Signed: Cj Morrissey MD at 12:30 EDT ,
== END | disposition home or self-care (01) ==
LOC: OPBI 09:12
PROVIDERS: PCP Family Medicine; Visit Provider Nurse Practitioner Women's Health
DX: Z12.31 Encounter for screening mammogram for malignant neoplasm of breast (principal)
CPT/HCPCS: 77063; 77067

== ENCOUNTER 2024-07-25 05:55 | Day surgery (SDC) | payer OTHER, SELFPAY ==
[2024-07-25] VITALS (9 sets, daily range): BP systolic 102–114; BP diastolic 66–78; PULSE 62–69; RESP 14–18; TEMP 36.1–36.8; O2SAT 95–100; BMI 29.9
[2024-07-25] MEDS: Lactated Ringers 1,000 ML 15 ML IV (06:25)
--- NOTE | 2024-07-25 06:33 | PCM.HP.BLA ---
History and Physical Date of Admission: 07/25/24 KRYSTEN GARCIA, is a 53 F who presents to the office today for establishment with [facility]. She has a hx of GERD with worsening symptoms since July 2023 then in November 2023 she started to having feelings of food stuck in her lower esophagus. She started semaglutide recently and she did notice worsening in her GERD symptoms and constipation. She started taking Nexium about 2.5 weeks ago and will take famotidine as needed at night; this has been helpful. Eating sugary food will make her heartburn worse.For her constipation she has been taking miralax daily but started to get diarrhea so she cut back to every other day. She has family fx of autoimmune diseases with both her children having celiac disease. She has a family history of colon cancer as well. Her first colonoscopy was at age 31 and she had 5 polyps. Last colonoscopy was in 2021 with recommendation for another in 5 years. She had an EGD about [address] Tom but does not recall why. Colonoscopy 07.01.22; - One 5 mm polyp in the proximal sigmoid colon, removed with a hot snare. Resected and retrieved. - The examination was otherwise normal on direct and retroflexion views. ROS Const Constitutional: Positive for fatigue; No fever(s) or weight change ENT ENT: Positive for difficulty swallowing Gastro GI: Positive for abdominal pain, constipation, heartburn and difficulty swallowing; No belching, bloating, change in bowel habits, change in stool character, coffee ground emesis, cramping, diarrhea, feeling full early, excessive flatus, incontinent of stools, Vomiting blood/hematemesis, Blood in stool, loose stools, Black,tarry stools, nausea/dyspepsia, pain with swallowing, vomiting or other Musc Musculoskeletal: Positive for joint pain, back pain, muscle cramps, numbness, stiffness, tingling, Arthritis and sciatica Skin Skin: No yellowing of the eye or itchy eyes Neuro Neurology: Positive for numbness and tingling Psych Psychiatric: Positive for anxiety and Positive for depression Endo Endocrine: Positive for fatigue; No weight change Aller/Imm Allergy/Immunologic: No itchy eyes Xavier/Lymp Hematologic/Lymphatic: No easy bleeding or easy bruising Exam Const General: cooperative and comfortable Nutritional Appearance: average body habitus and well nourished HENMT Head: normal to inspection Ears: hearing grossly normal bilaterally Nose: external nose normal Face and sinus: normal facial exam Eyes General: appearance normal, both eyes and all related structures Neck Neck: normal visual inspection Chest Chest palpation & inspection: normal inspection of the chest Resp Effort & Inspection: normal respiratory effort Cardio Palpation: normal PMI GI Inspection: normal to inspection Palpation: no hepatosplenomegaly Skin General: no rashes or lesions noted Neuro General: patient alert Extrem General: normal to inspection Psych Affect: normal affect Assessment and Plan Assessment and Plan (1) Dysphagia: Status: Acute Plan: Patient is here today for establishment with [facility]. She has a hx of GERD with worsening symptoms since July 2023. She has feeling of food getting stuck in her esophagus. She did start semaglutide recently and is aware of the effects of gastric emptying. She had an EGD about 15 years ago. Differential diagnosis includes GERD, gastritis, esophagitis, or gastroparesis. -We will schedule her for an EGD -Ordered gastrin level, antiparietal cell antibody, intrinsic factor antibody, CRP and ESR; she family hx of autoimmune conditions -CBC in February 2024 without pertinent abnormality -Suggested she take fiber and miralax alternating every other day to control her constipation. -Sent prescription for omeprazole 20 mg daily; explained side effects of snf use -She will follow up in 3 months Orders: I have examined the patient and the H&P has been reviewed. There are no clinical changes since date of exam.
--- NOTE | 2024-07-25 07:00 | EGD_PTH ---
PATIENT: KRYSTEN GARCIA LOC: [facility] U#:[id number] AGE/SX: 53/F ROOM: RE07/25/[address]: Dr. Bebeto Mcadams DO : 1970 BED: DIS: 07/25/2024 SPEC #: [id number] RECD: 07/25/24 08:46 STATUS: RICARDO KANA #: [id number] RUBY: 07/25/24 07:[address]: Bebeto Mcadams DEPT: SURGICAL PATHOLOGY RECD BY: Edmond Medellin ENTERED: 07/25/24 10:13 SP TYPE: EGD BIOPSY KIERSTEN DR: Dr. Helen Avilez, DO Tamia Still, [employer] Tissues: Esophagus, NOS Procedures: Special Stain Group I Surgery Specimen Level IV Alcian Blue/PAS (control) HEADER OPERATION: EGD with biopsies PRE-OP DIAGNOSIS: Dysphagia TISSUE SUBMITTED: Distal esophagus biopsy MICROSCOPIC DIAGNOSIS Distal esophagus, biopsy: Fragments of gastroesophageal mucosa with moderate chronic inflammation. Intestinal metaplasia (goblet cell metaplasia) is not identified. See comment. 07/26/2024 COMMENT Alcian blue/PAS stain with matched control is used in the evaluation of the specimen. MICROSCOPIC DESCRIPTION Slides are reviewed. GROSS DESCRIPTION Received in fixative is one container labeled with the patient's name and designated Distal esophagus biopsy. The specimen consists of multiple irregular fragments of light paiz soft tissue that in aggregate measure 1.5 x 0.6 x 0.1 cm. The specimen is totally submitted in one cassette. 07/25/2024 TC:3 CPT:00967,00690
--- NOTE | 2024-07-25 07:01 | PCM.PRE.AN2 ---
ASA Classification* ASA Classification ASA Classification: 2 Assessment & Plan Anesthesia* Anesthesia Assessment Anesthesia Assessment: Discussed sedation and/or anesthesia options, risks, benefits, and alternatives with patient/parents/legal guardian/POA. Questions invited. The patient/parents/legal guardian/POA seems to understand and agrees to proceed with anesthesia plan. Reviewed the physical assessment, medical history, allergy history and patient home medications list prior to surgery/procedure/anesthetic and documented any changes. Performed airway and anesthesia risk assessments. Anesthesia Type Anesthesia Type: MAC History Source History Obtained from:: Patient and Chart Anesthesia Focused Assessment* Temperature: 98.2 F Pulse Rate: 64 Blood Pressure: 107/66 Respiratory Rate: 16 Pulse Ox: 98 Airway Assessment Mouth opens: >3 cm Mallampati Score: II Teeth Condition: Intact Neck Range of motion (ROM): Full ROM Focused Labs Anesthesia Preop lab: CBC WBC 4.9 K/mm3 (4.4-11.0) 03/06/24 10:21 RBC 4.56 M/mm3 (4.2-5.4) 03/06/24 10:21 Hgb 13.5 g/dL (12.0-15.0) 03/06/24 10:21 Hct 41.4 % (37-47) 03/06/24 10:21 Plt Count 287 K/mm3 (150-450) 03/06/24 10:21 CHEMISTRY Potassium 4.0 mmol/L (3.5-5.1) 03/06/24 10:21 Sodium 139 mmol/L (136-145) 03/06/24 10:21 Phosphorus 3.4 mg/dL (2.5-4.9) 03/06/24 10:21 BUN 15 mg/dL (7-18) 03/06/24 10:21 Creatinine 0.98 mg/dL (0.55-1.02) 03/06/24 10:21 Glucose 97 mg/dL (74-106) 03/06/24 10:21 TSH 0.68 uIU/mL (0.358-3.74) 11/10/23 11:45 COAG Urine Test Negative Negative 03/20/13 21:35 Pre-Assessment Diagnosis/Proposed Procedure Planned Operative Procedure(s): EGD Anesthesia 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 When Was Last Pacemaker Check QUESTION #4 FULL TEXT: You/Your Family Experience fever (hyperthermia) with Anesthesia Last Oral Intake Last Oral intake: Last Oral Intake NPO since 19:30 07/25/24 06:20 Meds taken in AM with sips of water? Meds patient instructed to take am of surgery PONV PONV - air gun operator: PONV - air gun operator Female Yes 07/24/24 08:52 HX of Motion Sickness Yes 07/24/24 08:52 HX of N/V After Surgery No 07/24/24 08:52 Non-Smoker Yes 07/24/24 08:52 Duration of Surgery greater No 07/24/24 08:52 than 60 minutes Number of Risk Factors 3 07/24/24 08:52 PONV Score Moderate Risk 07/24/24 08:52 Height & Weight Height & Weight: Anesthesia: Height & Weight Height 5 ft 7 in 07/25/24 06:20 Weight: 86.6 kg 07/25/24 06:20 Body Mass Index (BMI) 29.9 07/25/24 06:20 Respiratory Assessment Respiratory Assessment - air gun operator: Respiratory Tract Infection Hx - air gun operator Hx Respiratory Tract Infection No 07/24/24 08:52 STOP Sleep Apnea STOP Sleep Apnea - air gun operator: STOP Sleep Apnea - air gun operator Hx Hypertension No 07/24/24 08:52 Hx Sleep Apnea No 07/24/24 08:52 CPAP No 07/24/24 08:52 BIPAP Do you snore loudly (louder No 07/24/24 08:52 than talking or can be heard Do you often feel tired/ No 07/24/24 08:52 fatigued/ sleepy during daytime? Has anyone observed you stop No 07/24/24 08:52 breathing during sleep? STOP Results Negative 07/24/24 08:52 QUESTION #5 FULL TEXT : Do you snore loudly (louder than talking or can be heard through closed doors)? 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 Specify any problems Hx of Preganancy in last 3 No 07/24/24 08:52 Months Nurse Filling Out Transfusion VCHRISTIN 07/24/24 08:52 & Questions: Date: 07/24/24 07/24/24 08:52 Time: 08:53 07/24/24 08:52 Patient unable to answer at this time (ie. confused, unrespo /Reproduction History /Reproductive History - air gun operator: /Reproductive Hx- air gun operator Hx Now No 07/24/24 08:52 Gestational Age (in weeks): EDC: Hx Hx Para Hx Section SAB No 07/24/24 08:52 Active Medications Active Medications: Current Medications Generic Name Dose Route Start Last Admin Trade Name Freq PRN Reason Stop Dose Admin Lactated Ringer's 1,000 mls @ 15 mls/hr 07/25/24 06:15 07/25/24 06:25 IV 15 mls/hr .Q48H HAYDEN Administration PFSH Medical History Gastric reflux Lung nodule, solitary History of tobacco use Encounter for screening for malignant neoplasm of lung Gastroenteritis Cellulitis of left ear canal Depression Anxiety Thyroid disease Injury of back Heartburn Contact dermatitis due to poison carlos Home Medications ?Medication ?Instructions ?Recorded ?Last Taken ?Type thyroid (pork) 90 mg tablet 90 mg PO MOTUTHFRSA 10/25/18 07/24/24 History ([place] Thyroid) venlafaxine 37.5 mg 75 mg PO DAILY 30 days #30 caps 10/25/18 07/24/24 History capsule,extended release 24 hr (Effexor XR) ascorbic acid (vitamin C) 500 mg 500 mg PO DAILY 03/02/22 07/24/24 History capsule biotin 2,500 mcg capsule 2,500 mcg PO DAILY 03/02/22 07/24/24 History cholecalciferol (vitamin D3) 50 50 mcg PO DAILY 03/02/22 07/24/24 History mcg (2,000 unit) capsule zinc 50 mg tablet 50 mg PO DAILY 03/02/22 07/24/24 History progesterone micronized 200 mg 100 mg PO QHS 03/31/24 07/24/24 History capsule omeprazole 20 mg capsule,delayed 20 mg PO DAILY #90 caps 06/28/24 07/24/24 Rx release estradiol 0.025 mg/24 hr 1 patch transdermal .TWICE WEEKLY 07/24/24 Unknown History semiweekly transdermal patch tirzepatide 2.5 mg/0.5 mL 2.5 mg subcut QWEEK 07/24/24 07/17/24 History subcutaneous pen injector (Mounjaro) Allergy/AdvReac Type Severity Reaction Status Date / Time Penicillins (PCN) Allergy Angioedema Verified 07/25/24 06:18 Surgical History Hx of colonoscopy S/P oophorectomy Status post tonsillectomy and adenoidectomy History of surgery of uterus Social History Smoking Status: Former smoker alcohol intake: never Review of Systems (Anesthesia) ROS Narrative System reviewed and no additional complaints, except as documented.
--- NOTE | 2024-07-25 07:12 | PRE.ANES_ITS ---
ASA Classification* ASA Classification ASA Classification: 2 Assessment & Plan Anesthesia* Anesthesia Assessment Anesthesia Assessment: Discussed sedation and/or anesthesia options, risks, benefits, and alternatives with patient/parents/legal guardian/POA. Questions invited. The patient/parents/legal guardian/POA seems to understand and agrees to proceed with anesthesia plan. Reviewed the physical assessment, medical history, allergy history and patient home medications list prior to surgery/procedure/anesthetic and documented any changes. Performed airway and anesthesia risk assessments. Anesthesia Type Anesthesia Type: MAC (see written pre anesthesia record for full assessment) Anesthesia Focused Assessment* Temperature: 98.2 F Pulse Rate: 64 Blood Pressure: 107/66 Respiratory Rate: 16 Pulse Ox: 98 Airway Assessment Mouth opens: >3 cm Mallampati Score: II Focused Labs Anesthesia Preop lab: CBC WBC 4.9 K/mm3 (4.4-11.0) 03/06/24 10:21 RBC 4.56 M/mm3 (4.2-5.4) 03/06/24 10:21 Hgb 13.5 g/dL (12.0-15.0) 03/06/24 10:21 Hct 41.4 % (37-47) 03/06/24 10:21 Plt Count 287 K/mm3 (150-450) 03/06/24 10:21 CHEMISTRY Potassium 4.0 mmol/L (3.5-5.1) 03/06/24 10:21 Sodium 139 mmol/L (136-145) 03/06/24 10:21 Phosphorus 3.4 mg/dL (2.5-4.9) 03/06/24 10:21 BUN 15 mg/dL (7-18) 03/06/24 10:21 Creatinine 0.98 mg/dL (0.55-1.02) 03/06/24 10:21 Glucose 97 mg/dL (74-106) 03/06/24 10:21 TSH 0.68 uIU/mL (0.358-3.74) 11/10/23 11:45 COAG Urine Test Negative Negative 03/20/13 21:35 Pre-Assessment Diagnosis/Proposed Procedure Planned Operative Procedure(s): EGD Anesthesia 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 When Was Last Pacemaker Check QUESTION #4 FULL TEXT: You/Your Family Experience fever (hyperthermia) with Anesthesia Last Oral Intake Last Oral intake: Last Oral Intake NPO since 19:30 07/25/24 06:20 Meds taken in AM with sips of water? 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 advisor Female Yes 07/24/24 08:52 HX of Motion Sickness Yes 07/24/24 08:52 HX of N/V After Surgery No 07/24/24 08:52 Non-Smoker Yes 07/24/24 08:52 Duration of Surgery greater No 07/24/24 08:52 than 60 minutes Number of Risk Factors 3 07/24/24 08:52 PONV Score Moderate Risk 07/24/24 08:52 Height & Weight Height & Weight: Anesthesia: Height & Weight Height 5 ft 7 in 07/25/24 06:20 Weight: 86.6 kg 07/25/24 06:20 Body Mass Index (BMI) 29.9 07/25/24 06:20 Respiratory Assessment Respiratory Assessment - automotive wholesale parts advisor: Respiratory Tract Infection Hx - automotive wholesale parts advisor Hx Respiratory Tract Infection No 07/24/24 08:52 STOP Sleep Apnea STOP Sleep Apnea - automotive wholesale parts advisor: STOP Sleep Apnea - automotive wholesale parts advisor Hx Hypertension No 07/24/24 08:52 Hx Sleep Apnea No 07/24/24 08:52 CPAP No 07/24/24 08:52 BIPAP Do you snore loudly (louder No 07/24/24 08:52 than talking or can be heard Do you often feel tired/ No 07/24/24 08:52 fatigued/ sleepy during daytime? Has anyone observed you stop No 07/24/24 08:52 breathing during sleep? STOP Results Negative 07/24/24 08:52 QUESTION #5 FULL TEXT : Do you snore loudly (louder than talking or can be heard through closed doors)? 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 Specify any problems Hx of Preganancy in last 3 No 07/24/24 08:52 Months Nurse Filling Out Transfusion VCHRISTIN 07/24/24 08:52 & Questions: Date: 07/24/24 07/24/24 08:52 Time: 08:53 07/24/24 08:52 Patient unable to answer at this time (ie. 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: /Reproductive Hx- automotive wholesale parts advisor Hx Now No 07/24/24 08:52 Gestational Age (in weeks): EDC: Hx Hx Para Hx Section SAB No 07/24/24 08:52 Active Medications Active Medications: Current Medications Generic Name Dose Route Start Last Admin Trade Name Freq PRN Reason Stop Dose Admin Lactated Ringer's 1,000 mls @ 15 mls/hr 07/25/24 06:15 07/25/24 06:25 IV 15 mls/hr .Q48H HAYDEN Administration PFSH Medical History Gastric reflux Lung nodule, solitary History of tobacco use Encounter for screening for malignant neoplasm of lung Gastroenteritis Cellulitis of left ear canal Depression Anxiety Thyroid disease Injury of back Heartburn Contact dermatitis due to poison carlos Home Medications ?Medication ?Instructions ?Recorded ?Last Taken ?Type thyroid (pork) 90 mg tablet 90 mg PO MOTUTHFRSA 10/25/18 07/24/24 History ([place] Thyroid) venlafaxine 37.5 mg 75 mg PO DAILY 30 days #30 caps 10/25/18 07/24/24 History capsule,extended release 24 hr (Effexor XR) ascorbic acid (vitamin C) 500 mg 500 mg PO DAILY 03/02/22 07/24/24 History capsule biotin 2,500 mcg capsule 2,500 mcg PO DAILY 03/02/22 07/24/24 History cholecalciferol (vitamin D3) 50 50 mcg PO DAILY 03/02/22 07/24/24 History mcg (2,000 unit) capsule zinc 50 mg tablet 50 mg PO DAILY 03/02/22 07/24/24 History progesterone micronized 200 mg 100 mg PO QHS 03/31/24 07/24/24 History capsule omeprazole 20 mg capsule,delayed 20 mg PO DAILY #90 caps 06/28/24 07/24/24 Rx release estradiol 0.025 mg/24 hr 1 patch transdermal .TWICE WEEKLY 07/24/24 Unknown History semiweekly transdermal patch tirzepatide 2.5 mg/0.5 mL 2.5 mg subcut QWEEK 07/24/24 07/17/24 History subcutaneous pen injector (Mounjaro) Allergy/AdvReac Type Severity Reaction Status Date / Time Penicillins (PCN) Allergy Angioedema Verified 07/25/24 06:18 Surgical History Hx of colonoscopy S/P oophorectomy Status post tonsillectomy and adenoidectomy History of surgery of uterus Social History Smoking Status: Former smoker alcohol intake: never Review of Systems (Anesthesia) ROS Narrative System reviewed and no additional complaints, except as documented.
--- NOTE | 2024-07-25 07:24 | OP.CCLET_ITS ---
07/25/2024 Helen Avilez [address] [facility] [place] [address] Re : Upper GI endoscopy procedure for Estrellita Masters Dear Dr. Avilez This procedure was performed on Thursday, July 25, 2024. My impressions and recommendations are as follows: Impressions : - LA Grade B reflux esophagitis with no bleeding. Biopsied. - Mild Schatzki ring. - Small hiatal hernia. - Normal first portion of the duodenum. Recommendations : - Discharge patient to home. - Resume previous diet. - Continue present medications. - Await pathology results. My findings are described in the full procedure note, which is enclosed. If I can be of further assistance, please feel free to contact me at . Sincerely, Bebeto Mcadams, 07/25/2024 7:23:36 AM This report has been signed electronically.
--- NOTE | 2024-07-25 07:24 | OP.EGD_ITS ---
Patient Name: Estrellita Price Procedure Date: 07/25/2024 6:59 AM Date of : 1970 Age: 53 Procedure: Upper GI endoscopy Indications: Dysphagia, Heartburn Providers: Bebeto Mcadams DO Referring MD: Bebeto Mcadams DO Medicines: Monitored Anesthesia Care Patient Profile: This is a 53 year old female. Refer to note in patient chart for documentation of history and physical. Patient has symptoms. Complications: No immediate complications. Procedure: Pre-Anesthesia Assessment: - Prior to the procedure, a History and Physical was performed, and patient medications and allergies were reviewed. The patient is competent. The risks and benefits of the procedure and the sedation options and risks were discussed with the patient. All questions were answered and informed consent was obtained. Patient identification and proposed procedure were verified by the physician in the pre-procedure area. Mental Status Examination: alert and oriented. Respiratory Examination: clear to auscultation. CV Examination: normal. Prophylactic Antibiotics: The patient does not require prophylactic antibiotics. Prior Anticoagulants: The patient has taken no anticoagulant or antiplatelet agents. ASA Grade Assessment: II - A patient with mild systemic disease. After reviewing the risks and benefits, the patient was deemed in satisfactory condition to undergo the procedure. The anesthesia plan was to use monitored anesthesia care (MAC). Immediately prior to administration of medications, the patient was re-assessed for adequacy to receive sedatives. The heart rate, respiratory rate, oxygen saturations, blood pressure, adequacy of pulmonary ventilation, and response to care were monitored throughout the procedure. The physical status of the patient was re-assessed after the procedure. After obtaining informed consent, the endoscope was passed under direct vision. Throughout the procedure, the patient's blood pressure, pulse, and oxygen saturations were monitored continuously. The Endoscope was introduced through the mouth, and advanced to the second part of duodenum. The upper GI endoscopy was accomplished without difficulty. The patient tolerated the procedure well. Scope In: 7:11:05 AM Scope Out: 7:15:19 AM Total Procedure Duration Time 0 hours 4 minutes 14 seconds Findings: LA Grade B (one or more mucosal breaks greater than 5 mm, not extending between the tops of two mucosal folds) esophagitis with no bleeding was found 38 to 41 cm from the incisors. Biopsies were taken with a cold forceps for histology. Verification of patient identification for the specimen was done. Estimated blood loss was minimal. A mild Schatzki ring was found at the gastroesophageal junction. A small hiatal hernia was present. No other significant abnormalities were identified in a careful examination of the stomach. The first portion of the duodenum was normal. Impression: - LA Grade B reflux esophagitis with no bleeding. Biopsied. - Mild Schatzki ring. - Small hiatal hernia. - Normal first portion of the duodenum. Recommendation: - Discharge patient to home. - Resume previous diet. - Continue present medications. - Await pathology results. Procedure Code(s): --- Professional --- 41363, Esophagogastroduodenoscopy, flexible, transoral; with biopsy, single or multiple CPT copyright 2021 [employer]. All rights reserved. The codes documented in this report are preliminary and upon computer language coder review may be revised to meet current compliance requirements. Bebeto Mcadams DO 07/25/2024 7:23:36 AM This report has been signed electronically. Number of Addenda: 0 Note Initiated On: 07/25/2024 6:59 AM
--- NOTE | 2024-07-25 07:27 | PCM.POST.ANE ---
Anesthesia: Postop Eval I Current Vital Signs Temperature: 97 F Pulse Rate: 68 Blood Pressure: 104/74 Respiratory Rate: 16 Pulse Ox: 100 Oxygen Delivery Method: Room Air Assessment Airway patent: Yes Spontaneous unlabored respirations: Yes Mental status: Awake and Calm nausea: No Vomiting: No Anesthesia Complication: No Fluid Hydration Crystalloid volume administer (ml): 400 Total IV fluid infused: 400 Progress Note Anesthesia document: Postop Eval 1 completed: Yes
--- NOTE | 2024-07-25 07:42 | PCM.POSTANE2 ---
Anesthesia Postop Eval I Sum Postop Eval Completion status Anesthesia document: Postop Eval 1 completed: Yes Anesthesia Postop Eval I Summary Anesthesia Postop Eval I Summary: Anesthesia Postop Eval I: Assessment Summary Airway patent Yes 07/25/24 07:28 [email or web address] Spontaneous unlabored Yes 07/25/24 07:28 [email or web address] respirations Mental status Awake,Calm 07/25/24 07:28 [email or web address] nausea No 07/25/24 07:28 [email or web address] Vomiting No 07/25/24 07:28 [email or web address] Anesthesia Postop Eval I: Fluid Summary Crystalloid volume administer 400 07/25/24 07:28 [email or web address] (ml) Colloids volume administered ( ml) Blood Product volume administered (ml) Total IV fluid infused 400 07/25/24 07:28 [email or web address] Anesthesia Postop Eval I: Summary Notes Anesthesia Complication No 07/25/24 07:28 [email or web address] Anesthesia Complication Comment: Post-operative progress note Anesthesia: Postop Eval II Evaluation Mental status: Awake Pain Level: 0 nausea: No Vomiting: No
--- NOTE | 2024-07-25 12:50 | CT_ITS ---
EXAM: CT CHEST, LUNG CANCER SCREENING WITHOUT INTRAVENOUS CONTRAST CLINICAL INDICATION: Lung cancer screening -- and gt; 20 pk yr hx; former smoker; asymptomatic TECHNIQUE: Helically acquired images were obtained of the chest without intravenous contrast using low dose (LDCT) lung cancer screening protocol. This CT exam was performed using one or more of the following dose reduction techniques: automated exposure control, adjustment of the mA and/or kV according to patient size, and/or use of iterative reconstruction technique. COMPARISON: CT Lung Cancer Screening dated 01/25/2024 FINDINGS: LUNGS AND PLEURAL SPACES: Stable oval-shaped pleural-based left lower lobe pulmonary nodule stable. Stable 6 mm pleural-based right lower lobe pulmonary nodule. Stable 3 mm right upper lobe pulmonary nodule on image 77 of sequence 2. No pneumothorax. HEART: Normal. No pericardial effusion. Normal heart size. No coronary artery calcification. MEDIASTINUM: Normal. No mediastinal or hilar adenopathy. Esophagus is unremarkable. No hiatal hernia. THYROID: Normal. No thyroid nodules or calcification. BONES/JOINTS: No suspicious lytic or blastic abnormality. VASCULATURE: No aortic aneurysm. LYMPH NODES: Normal. No enlarged lymph nodes. CT/Low Dose CT Lung Screening IMPRESSION: Stable bilateral pulmonary nodules. Lung-RADS score: 2 - Benign Appearance or Behavior. Recommend continued annual screening with a low-dose CT (LDCT) in 12 months. Electronically Signed: Arvin Woodward MD at 16:15 EDT Reading Location ID and State: [facility] / [place] Tel , Service support ,
== END 2024-07-25 08:04 | disposition home or self-care (01) ==
LOC: EN 05:56 → AC 07:48
PROVIDERS: PCP Family Medicine; Referring Provider Family Medicine; Visit Provider Internal Medicine Gastroenterology
PROC: 0DJ08ZZ Inspection of Upper Intestinal Tract, Via Natural or Artificial Opening Endoscopic (ICD-10-PCS; CPT 43235; principal; 2024-07-25 06:55)
DX: K21.00 Gastro-esophageal reflux disease with esophagitis, without bleeding (principal); K44.9 Diaphragmatic hernia without obstruction or gangrene; K22.2 Esophageal obstruction; R13.10 Dysphagia, unspecified; Z79.899 Other long term (current) drug therapy; Z12.2 Encounter for screening for malignant neoplasm of respiratory organs; Z87.891 Personal history of nicotine dependence; Z80.0 Family history of malignant neoplasm of digestive organs; Z86.0100 Personal history of colon polyps, unspecified
CPT/HCPCS: 43239; 71271; 88305; 88312; J7120; J2405

== ENCOUNTER → 2025-01-24 | Outpatient (CLI) | payer OTHER, SELFPAY ==
--- NOTE | 2025-01-24 09:57 | RAD_ITS ---
EXAM: XR Chest, 2 Views CLINICAL INDICATION: COUGH, RIGHT ANTERIOR CHEST PAIN TECHNIQUE: Frontal and lateral views of the chest. COMPARISON: No relevant prior studies available. FINDINGS: LUNGS AND PLEURAL SPACES: Unremarkable. No consolidation. No pneumothorax. HEART: Unremarkable. No cardiomegaly. MEDIASTINUM: Unremarkable. Normal mediastinal contour. BONES/JOINTS: Unremarkable. No acute fracture. RAD/Chest PA and Lateral IMPRESSION: No acute cardiopulmonary process. Reading Location: [facility]
== END | disposition home or self-care (01) ==
LOC: MTRAD 09:57
PROVIDERS: PCP Family Medicine; Referring Provider Physician Assistant; Visit Provider Physician Assistant
DX: R05.9 Cough, unspecified (principal)
CPT/HCPCS: 71046

== ENCOUNTER → 2025-02-16 | Outpatient (CLI) | payer OTHER, SELFPAY ==
[2025-02-16 15:31] LABS: Free T3 2.8 pg/mL (2.18-3.98); Uric Acid 3.7 mg/dL (2.6-6.0)
== END | disposition home or self-care (01) ==
LOC: LAB 14:02
PROVIDERS: PCP Family Medicine; Referring Provider Family Medicine; Visit Provider Family Medicine
DX: E03.9 Hypothyroidism, unspecified (principal)
CPT/HCPCS: 36415; 84439; 84443; 84481; 84550

== ENCOUNTER → 2025-02-27 | Outpatient (CLI) | payer OTHER, SELFPAY ==
--- NOTE | 2025-02-27 13:01 | US_ITS ---
PROCEDURE: PELVIC W/ TRANSVAGINAL, 02/27/2025 REASON FOR EXAM: PELVIC PAIN TECHNIQUE: Grayscale and color doppler transabdominal and transvaginal pelvic ultrasound was performed. COMPARISON: 02/29/2024 FINDINGS: Exam limited by shadowing bowel gas. Uterus: 7.5 x 4.4 x 3.6 cm, retroverted. Heterogeneous echotexture. Endometrium: Ill-defined and difficult to measure, roughly 3 mm. Cervix: Unremarkable. Right ovary: Again not visualized likely due to positioning and/or shadowing bowel gas. Left ovary: 2.5 x 1.6 x 1.3 cm. Unremarkable. Free fluid: None visualized. Other: Estimated bladder volume 205 mL.. US/Pelvic w/ Transvaginal IMPRESSION: 1. No acute abnormality. If unexplained symptoms persist, consider CT. 2. Heterogeneous uterus may indicate adenomyosis. 3. RIGHT ovary again not visualized. 4. Additional description as above. Reading Location: [id number]
== END | disposition home or self-care (01) ==
LOC: US 12:50
PROVIDERS: PCP Family Medicine; Referring Provider Nurse Practitioner Women's Health; Visit Provider Nurse Practitioner Women's Health
DX: R10.2 Pelvic and perineal pain (principal)
CPT/HCPCS: 76830; 76856

== ENCOUNTER → 2025-03-26 | Outpatient (CLI) | payer OTHER, SELFPAY ==
--- NOTE | 2025-03-26 08:43 | BI_ITS ---
EXAM: SCRN MAMM (CAD)W/DOTTY BILAT DATE: 03/26/2025 CLINICAL HISTORY: F, Age 54 y/o , SCREENING BREAST CANCER RISK ASSESSMENT: Has not been calculated. TECHNIQUE: Bilateral screening digital breast tomosynthesis with 2D and 3D images. Computer aided detection. COMPARISON: Prior exam(s) dated 03/13/2024 and 03/18/2023. FINDINGS: TISSUE DENSITY: The breast tissue is composed of scattered area of fibroglandular density. Bilateral Breast Mammographic Findings: There are no suspicious masses, suspicious cluster of microcalcifications, architectural distortion or secondary signs of malignancy identified in either breast. Benign-appearing round calcifications are seen in both breasts. Stable partially obscured isodense masses are seen in both breasts. A radiopaque clip is seen in the superior outer aspect of the right breast. The biopsy was benign. Post biopsy site is stable. BI/SCRN MAMM (CAD)W/DOTTY BILAT IMPRESSION: OVERALL FINAL ASSESSMENT: BIRADS 2 BENIGN FINDING RECOMMENDATION: Routine annual follow-up in 1 Year A letter with findings and recommendations will be mailed to the patient. Reading Location: [id number]
== END | disposition home or self-care (01) ==
LOC: OPBI 08:42
PROVIDERS: PCP Family Medicine; Referring Provider Nurse Practitioner Women's Health; Visit Provider Nurse Practitioner Women's Health
DX: Z12.31 Encounter for screening mammogram for malignant neoplasm of breast (principal)
CPT/HCPCS: 77063; 77067

== ENCOUNTER → 2025-07-18 | Outpatient (CLI) | payer OTHER, SELFPAY ==
[2025-07-18 17:03] LABS: Free T3 3.0 pg/mL (2.18-3.98)
--- OUTSIDE RECORDS SUMMARY | 2025-07-18 18:50 | XMS RPT_ITS | CCD ---
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 Helen Avilez Primary Care Provider Dr. Helen Avilez Referring Provider Dr. Javi Feliz Attending Provider [phone] SUMMER Alcantar Attending Provider Dr. Helen Avilez Primary Care Provider [phone] Dr. Helen Avilez Referring Provider SUMMER Lechuga Attending Provider BESS Srivastava Attending Provider Dr. Helen Avilez Primary Care Provider Dr. Helen Avilez Referring Provider [phone] BESS Srivastava Attending Provider Dr. Helen Avilez Primary Care Provider Dr. Helen Avilez Referring Provider Dr. Javi Feliz Attending Provider Dr. Javi Feliz Referring Provider [phone] Dr. Javi Feliz Other Provider [phone] BRADY SHEA Primary Care Unavailable SUMMER Alcantar Attending Provider Brady Shea Primary Care Provider DR HELEN AVILEZ DO Primary Care Physician MYRIAM FOX Attending Unavail able DR HELEN AVILEZ DO Primary Care Unavailable Fatmata Dr. Cervantes Primary Care Provider Fatmata, Dr. Cervantes Referring Provider SUMMER Lechuga Attending Provider Fatmata, Dr. Cervantes Primary Care Provider Fatmata, Dr. Cervantes Referring Provider SUMMER Lechuga Attending Provider Cheko INVESTMENT BROKER, INVESTMENT BROKER-C Tamia Attending Provider [phone] Fatmata CLARK, Dr. Cervantes Primary Care Provider Fatmata CLARK, Dr. Cervantes Referring Provider [phone] Garrick Lechuga Attending Provider Garrick Lechuga Referring Provider Assessment, Health Risk Attending Provider Unava ilable Fatmata CLARK, Dr. Cervantes Attending Provider [phone] Liu INVESTMENT BROKER-C, Myriam Attending Provider Liu INVESTMENT BROKER-C, Myriam Referring Provider Argenis Spain Attending Provider Malys, Helen Referring Unavailable Malys, Helen Primary Care Unavailable Malys, Helen Attending Unavailable Malys, Helen Primary Care Unavailable Garrick Lechuga Referring Unavailable Garrick Lechuga Attending Unavailable Myriam Liu Referring Unavailable LiuMyriam Attending Unavailable Malys, Helen Primary Care Unavailable Cheko INVESTMENT BROKER, Tamia Consulting Unavailable Bebeto Mcadams Attending Unavailable Malys, Helen Primary Care Unavailable Malys, Helen Referring Unavailable Cheko INVESTMENT BROKER, Tamia Referring Unavailable Cheko INVESTMENT BROKER, Tamia Attending Unavailable Malys, Helen Primary Care Unavailable Malys, Helen Referring Unavailable Argenis Jimenes Attending Unavailable Malys, Helen Primary Care Unavailable Malys, Helen Primary Care Unavailable Garrick Lechuga Attending Unavailable Malys, Helen Referring Unavailable Argenis Jimenes Attending Unavailable Malys, Helen Primary Care Unavailable Malys, Helen Referring Unavailable Cheko INVESTMENT BROKER, Tamia Consulting Unavailable Friend, Bebeto Attending Unavailable Malys, Helen Primary Care Unavailable Malys, Helen Referring Unavailable Friend, Bebeto Consulting Unavailable Cheko INVESTMENT BROKER, Tamia Referring Unavailable Cheko INVESTMENT BROKER, Tamia Attending Unavailable Malys, Helen Primary Care Unavailable Malys, Helen Referring Unavailable Malys, Helen Primary Care Unavailable Garrick Lechuga Attending Unavailable Malys, Helen Primary Care Unavailable Assessment, Health Risk Attending Unavaila ble Myriam Liu Referring Unavailable Myriam Liu Attending Unavailable Malys, Helen Primary Care Unavailable Allergies Allergy Classification Reported Allergen(s) Allergy Type Date of Onset Reaction(s) Facility (18 sources) Penicillins; Translations: [Penicillins] Allergy to substance 03-02-2022 Angioedema [facility] (2 sources) Penicillin; Translations: [PENICILLIN G] Drug Allergy 01-13-2014 Swelling [facility] Repository (1 source) Penicillin; Translations: [penicillins] Drug Allergy LIPS [facility] [address] Medications Current Medications Medication Drug Class(es) Dates Sig (Normalized) Sig (Original) Ascorbic Acid (19 sources) Vitamin C Start: 02-10-2023 Vitamin C qDay , 0 Refill(s) Start Date: 02/10/23 Status: Ordered Start: 03-02-2022 take 1 capsule by mo [facility] once daily Ascorbic Acid (Vitamin C) 500 mg capsule Active 500 mg PO DAILY March 02, 2022 12:00am Start: 03-02-2022 Ascorbic Acid (Vitamin C) Active MG PO March 02, 2022 12:00am Comment on above: Take by mouth. biotin 2.5 mg oral capsule (19 sources) Start: 03-02-2022 take 1 capsule by mouth once daily Biotin 2,500 mcg capsule Active 2500 ug PO DAILY March 02, 2022 12:00am Start: 09-22-2016 [facility] bi[facility] 1 TAB, Oral, qDay, 0 Refill(s) Start Date: 09/22/16 Status: Ordered Comment on above: Take 2,500 mcg by mo [facility]. cholecalciferol 0.05 mg oral capsule (17 sources) Vitamin D Start: 03-02-20 take 1 capsule by mouth once daily Cholecalciferol (Vitamin D3) 50 mcg (2,000 unit) capsule Active 50 ug PO DAILY March 02, 2022 12:00am 84 hr estradiol 0.88711 mg/hr transdermal system (9 sources) Estrogen Start: 07-24-20 Estradiol 0.025 mg/24 hr patch semiweekly Active 1 NMA TD .TWICE WEEKLY July 24, 2024 12:00am Start: 01-25-2024 End: 07-24-2024 take 0.25 mg by mouth once daily Estradiol 0.5 mg tablet Discontinued 0.25 mg PO DAILY January 25, 2024 12:00am July 24, 2024 8:46am off 5 days; repeat cycle Start: 01-25-2024 take 0.25 mg by mout h once daily Estradiol Active 0.25 MG PO DAILY January 25, 2024 12:00am off 5 days; repeat cycle Magnesium (17 sources) Start: 03-02-2022 take 200 mg by mouth once daily Magnesium Active 200 MG PO DAILY March 02, 2022 9:53am Start: 03-02-2022 End: 07-24-2024 take 1 tablet by mouth once daily Magnesium 200 mg tablet Discontinued 200 mg PO DAILY March 02, 2022 12:00am July 24, 2024 8:48am Start: 03-02-2022 take 200 mg by mouth once kiana y Magnesium Active 200 MG PO DAILY March 01, 2022 11:00pm Start: 03-02-2022 take 200 mg by mouth once kiana y Magnesium Active 200 MG PO DAILY March 02, 2022 12:00am magnesium oxide 250 mg oral tablet (1 source) Start: 02-10-2023 Magnesium 250 mg tablet Dose : 500 mg = 2 tab(s), Oral, qDay, 0 Refill(s) Start Date: 02/10/23 Status: Ordered methylPREDNISolone 4 mg oral tablet (4 sources) Corticosteroid Start: 01-24-2025 take 1 tablet by mouth once Methylprednisolone (Medrol (Walt)) 4 mg tablets,dose pack Active 0 PO per package directions January 24, 2025 12:00am PO PER PKG DIR omeprazole 20 mg delayed release oral capsule (11 sources) Proton Pump Inhibitor Start: 03-13-2025 take 1 capsule by mouth once Omeprazole 20 mg capsule,delayed release(DR/EC) Active 20 mg PO ONCE March 13, 2025 9:20am Start: 08-04-2024 End: 03-13-2025 take 1 capsule by mouth twice daily Omeprazole 20 mg capsule,delayed release(DR/EC) Discontinued 20 mg PO TWICE A DAY 180 August 04, 2024 2:02pm March 13, 2025 9:21am Start: 06-28-2024 End: 08-04-2024 take 1 capsule by mouth once daily Omeprazole 20 mg capsule,delayed release(DR/EC) Discontinued 20 mg PO DAILY June 28, 2024 12:00am August 04, 2024 2:02pm Start: 06-20-2009 omeprazole(KAYLEE LOSEC 20 MG CAP) Take one(1) capsule daily. 0 0 06/20/2009 Active Comment on above: Take one(1) capsule daily. progesterone 200 mg oral capsule (4 sources) Progesterone Start: 03-31-20 24 take 1 capsule by mouth at bedtime Progesterone Micronized 200 mg capsule Active 100 mg PO AT BEDTIME March 31, 2024 12:00am Testosterone 100 mg/mL suspension (4 sources) Start: 01-25-20 25 Testosterone 100 mg/mL suspension Active mg IM January 24, 2025 12:00am 50mg- Thyroid (Pork) ([place] Thyroid) 90 mg tablet (4 sources) Start: 10-25-19 19 Thyroid (Pork) ([place] Thyroid) 90 mg tablet Active [facility] October 25, 2018 1:00am Vitamin D3 (1 source) Start: 02-11-20 23 Vitamin D3 qDay, 0 Refill(s) Start Date: 02/10/23 Status: Ordered Zinc (17 sources) Start: 03-02-20 22 take 50 mg by mouth once daily Zinc Active 50 MG PO DAILY March 02, 2022 9:53am Start: 03-02-2022 take 1 tablet by mouth once da michael Zinc 50 mg tablet Active 50 mg PO DAILY March 02, 2022 12:00am Start: 03-02-2022 take 50 mg by mouth once daily Zinc Active 50 MG PO DAILY March 01, 2022 11:00pm Start: 03-02-2022 take 50 mg by mouth once daily Zinc Active 50 MG PO DAILY March 02, 2022 12:00am Completed/Discontinued Medications Medication Drug Class(es) Dates Sig (Normalized) Sig (Original) acetaminophen 325 mg / HYDROcodone bitartrate 5 mg oral tablet (17 sources) Opioid Agonist Start: 09-04-2020 End: 09-08-2020 Hydrocodone-Acetami nophen 1 TABLET tablet Discontinued 1 - 2 {tbl} PO EVERY 4 HOURS NEEDED as needed for Pain 14 4 September 04, 2020 September 07, 2020 1:00am September 08, 2020 1:03am Start: 09-04-2020 End: 09-08-2020 take 1 tablet by mouth every four hours as needed Hydrocodone-Acetaminophen Discontinued 1 - 2 TABLET PO EVERY 4 HOURS NEEDED 14 4 September 04, 2020 September 08, 2020 1:03am acetaminophen 325 mg / oxyCODONE hydrochloride 5 mg oral tablet (17 sources) Opioid Agonist Start: 09-12-2020 End: 09-15-2020 Oxycodone-Acetaminophen 1 TABLET tablet Discontinued 1 {tbl} PO EVERY 6 HOURS NEEDED as needed for Pain 12 3 September 12, 2020 September 14, 2020 1:00am September 15, 2020 1:02am Start: 09-12-2020 End: 09-15-2020 take 1 tablet by mouth every six hours as needed Oxycodone-Acetaminophen Discontinued 1 TABLET PO EVERY 6 HOURS NEEDED 12 3 September 12, 2020 September 15, 2020 1:02am amphetamine aspartate 7.5 mg / amphetamine sulfate 7.5 mg / dextroamphetamine saccharate 7.5 mg / dextroamphetamine sulfate 7.5 mg oral tablet (19 sources) Central Nervous System Stimulant Start: 09-22-2016 End: 01-25-2024 take 1 tablet by mouth once daily as needed Dextroamphetamine-Amphetamine (Adderall) 30 MG tablet Discontinued 30 mg PO DAILY as needed for adhd January 14, 2017 12:00am January 25, 2024 12:02pm take 1 tablet by iwona th once daily dextroamphetamine-amphetamine (ADDERALL) 20 mg tablet Take 20 mg by mouth once daily. 0 Active Comment on above: Take 20 mg by mouth once daily. azithromycin 250 mg oral tablet (20 sources) Macrolide Antimicrobial Start: 019 End: 020 take 2-5 tablets by mouth once daily Azithromycin (Zithromax Z-Walt) 250 mg tablet Discontinued 0 PO .COMPLEX 6 January 15, 2019 12:00am June 20, 2020 9:54am take 500 mg today (day 1), then 250 mg for 4 days (days 2-5) benzonatate 100 mg oral capsule (1 source) Non-narcotic Antitussive Start: take 2 capsules by mouth every eight hours as needed benzonatate (TESSALON PERLES) 100 mg capsule Take 2 capsules by mouth three times daily as needed. 30 capsule 0 10/20/2022 Active Comment on above: Take 2 capsules by m outh three times daily as needed. citalopram 20 mg oral tablet (18 sources) Serotonin Reuptake Inhibitor Start: 011 End: take 1 tablet by mouth once daily Citalopram 20 MG tablet Discontinued 20 mg PO DAILY January 14, 2017 12:00am October 25, 2018 9:43am Comment on above: daily doxycycline monohydrate 100 mg oral capsule (13 sources) Tetracycline-class Drug Start: End: take 1 capsule by mouth twice daily Doxycycline Monohydrate 100 mg capsule Discontinued 100 mg PO TWICE A DAY March 26, 2022 12:00am May 23, 2022 1:31pm patient aware to hold magnesium and zinc while on this medication esomeprazole 20 mg delayed release oral capsule (4 sources) Proton Pump Inhibitor Start: End: take 1 capsule by mouth once daily Esomeprazole Magnesium (Nexium) 20 mg capsule,delayed release(DR/EC) Discontinued 20 mg PO daily June 28, 2024 12:00am July 24, 2024 8:49am levothyroxine sodium 0.15 mg oral tablet (1 source) l-Thyroxine take 1 tablet by mouth once daily before breakfast levothyroxine (SYNTHROID) 150 mcg tablet Take 150 mcg by mouth daily before breakfast. 0 Active Comment on above: Take 150 mcg by mout h daily before breakfast. naproxen sodium 550 mg oral tablet (1 source) Nonsteroidal Anti-inflammatory Drug Start: naproxen sodium(ANAPROX DS 550 MG TAB) Indications: Pelvic pain in female Take one(1) tablet twelve(12) hours as needed for pain. 30 1 06/20/2009 Active Comment on above: Take one(1) tablet t welve(12) hours as needed for pain. norethindrone acetate 5 mg oral tablet (17 sources) Start: End: take 1 tablet by mouth once daily Norethindrone Acetate 5 MG tablet Discontinued 5 mg PO DAILY January 14, 2017 12:00am October 25, 2018 9:43am penciclovir 10 mg/ml topical cream (1 source) Herpesvirus Nucleoside Analog DNA Polymerase Inhibitor Start: DENAVIR 1 % TOPICAL CREAM Apply every 2 hrs while awake for 5 days 1 2 09/08/2005 Active Comment on above: Apply every 2 hrs wh ile awake for 5 days predniSONE 20 mg oral tablet (1 source) Start: End: take 2 tablets by mouth once daily predniSONE (DELTASONE) 20 mg tablet Take 2 tablets by mouth once daily for 5 days. 10 tablet 0 10/20/2022 10/25/2022 Comment on above: Take 2 tablets by mo [facility] once daily for 5 days. promethazine hydrochloride 25 mg oral tablet (6 sources) Phenothiazine Start: End: take 1 tablet by mouth three times daily as needed for nausea and vomiting Promethazine 25 mg tablet Discontinued 25 mg PO THREE TIMES A DAY as needed for nausea and vomiting November 01, 2023 1:00am January 25, 2024 12:03pm thyroid (long-term) 120 mg oral tablet (20 sources) Start: End: take 1 tablet by mouth once daily Thyroid (Pork) 120 MG tablet Discontinued 120 mg PO DAILY January 14, 2017 12:00am October 25, 2018 9:43am Start: 09-22-2016 take 1 tablet by mouth once da michael Thyroid (Pork) ([place] Thyroid) 90 mg tablet Active 90 MG PO DAILY October 25, 2018 1:00am Tirzepatide (Mounjaro) 2.5 mg/0.5 mL pen injector (4 sources) Start: 07-24-2024 End: 01-24-2025 Tirzepatide (Mounjaro) 2.5 mg/0.5 mL pen injector Discontinued 2.5 mg SC EVERY WEEK July 24, 2024 12:00am January 24, 2025 9:57am for 4 weeks 24 hr venlafaxine 37.5 mg extended release oral capsule (19 sources) Serotonin and Norepinephrine Reuptake Inhibitor Start: 09-24-2022 venlafaxine ER (EFFEXOR XR) 37.5 mg 24 hr capsule Start: 10-25-2018 take 1 capsule by mo [facility] once daily Venlafaxine (Effexor Xr) 37.5 mg capsule,extended release 24hr Active 75 mg PO DAILY October 25, 2018 1:00am Problems Active Problems Problem Classification Problem Date Documented Da te Episodic/Chronic Allergic reactions (17 sources) Contact dermatitis due to poison carlos; Translations: [Allergic contact dermatitis due to plants, except food] 06-25-2021 Episodic Anxiety disorders (1 source) Anxiety 09-25-2020 Chronic Chronic obstructive pulmonary disease and bronchiectasis (1 source) Bronchitis; Translations: [Bronchitis, not specified as acute or chronic] Episodic Esophageal disorders (6 sources) Gastroesophageal reflux disease; Translations: [Gastro-esophageal reflux disease without esophagitis] Onset: 06-28-2024 Chronic Immunizations and screening for infectious disease (18 sources) Contact with and (suspected) exposure to other viral communicable diseases; Translations: [Contact with or suspected exposure to other viral communicable disease] Episodic Menopausal disorders (4 sources) Menopausal symptom; Translations: [Menopausal and female climacteric states] 03-31-2024 Chronic Mood disorders (1 source) Depressive disorder 09-25-2020 Chronic Nausea and vomiting (17 sources) Nausea and vomiting; Translations: [Nausea with vomiting, unspecified] 10-25-2018 Episodic Noninfectious gastroenteritis (8 sources) Gastroenteritis; Translations: [Noninfective gastroenteritis and colitis, unspecified] 11-01-2023 Episodic Nonmalignant breast conditions (20 sources) Breast lump; Translations: [Unspecified lump in the right breast, unspecified quadrant] Episodic Osteoarthritis (1 source) Arthritis 09-22-2016 Chronic Comment on above: SOME LEFT HIP Other ear and sense organ disorders (17 sources) Impacted cerumen; Translations: [Impacted cerumen, left ear] 09-09-2021 Episodic Other ear and sense organ disorders (13 sources) Infection of external auditory canal; Translations: [Cellulitis of left external ear] 03-26-2022 Episodic Other ear and sense organ disorders (1 source) Cellulitis of left external ear; Translations: [Infective otitis externa, unspecified] Episodic Other endocrine disorders (4 sources) Disorder of endocrine system; Translations: [Endocrine disorder, unspecified] 03-31-2024 Episodic Other gastrointestinal disorders (4 sources) Dysphagia; Translations: [Dysphagia, unspecified] 06-28-2024 Episodic Other gastrointestinal disorders (5 sources) Constipation; Translations: [Constipation, unspecified] 09-26-2024 Episodic Other lower respiratory disease (5 sources) Solitary nodule of lung; Translations: [Solitary pulmonary nodule] 01-25-2024 Episodic Other lower respiratory disease (4 sources) Multiple nodules of lung; Translations: [Other nonspecific abnormal finding of lung field] 07-27-2024 Episodic Other nutritional; endocrine; and metabolic disorders (4 sources) Weight increased; Translations: [Abnormal weight gain] 03-31-2024 Episodic Other upper respiratory infections (20 sources) Acute frontal sinusitis; Translations: [Acute frontal sinusitis, unspecified] Episodic Otitis media and related conditions (17 sources) Otitis media; Translations: [Otitis media, unspecified, left ear] 09-09-2021 Episodic Ovarian cyst (1 source) Cyst of ovary 09-25-2020 Episodic Screening and history of mental health and substance abuse codes (8 sources) Tobacco use and exposure - finding; Translations: [Personal history of nicotine dependence] Onset: 4 01-25-2024 Episodic Spondylosis; intervertebral disc disorders; other back problems (20 sources) Lumbago with sciatica; Translations: [Lumbago with sciatica, left side] 09-13-2020 Episodic Thyroid disorders (3 sources) Hypothyroidism; Translations: [Hypothyroidism, unspecified] Onset: 6 08-14-2006 Chronic Unclassified (1 source) Cough, unspecified; Translations: [Cough, unspecified] Onset: 5 Viral infection (15 sources) Disease caused by 2019-nCoV; Translations: [COVID-19] Episodic Past or Other Problems Problem Classification Problem Date Documented Da te Episodic/Chronic Abdominal pain (1 source) Pelvic and perineal pain; Translations: [Pelvic and perineal pain] Onset: 03-05-2025 Episodic Other disorders of stomach and duodenum (1 source) Disorder of function of stomach; Translations: [Other diseases of stomach and duodenum] Onset: 08-14-2006 08-14-2006 Episodic Other gastrointestinal disorders (1 source) Constipation, unspecified; Translations: [Constipation, unspecified] Onset: 03-13-2025 Episodic Other gastrointestinal disorders (1 source) Dysphagia, unspecified; Translations: [Dysphagia, unspecified] Onset: 08-16-2024 Episodic Other lower respiratory disease (2 sources) Solitary pulmonary nodule; Translations: [Solitary pulmonary nodule] Onset: 08-02-2024 01-25-2024 Episodic Other lower respiratory disease (1 source) Other nonspecific abnormal finding of lung field; Translations: [Other nonspecific abnormal finding of lung field] Onset: 08-02-2024 Episodic Other screening for suspected conditions (not mental disorders or infectious disease) (20 sources) Abnormal findings on diagnostic imaging of breast; Translations: [Other abnormal and inconclusive findings on diagnostic imaging of breast] Onset: 02-10-2023 Episodic Results Test Name Value Interpretation Reference Range Facility Breast imaging reportOrdered By: Ursula Jones on 03-26-2025 Study report [facility] Imaging Services [address] [place] [id number] SCRN MAMM (CAD)W/RUIZ BILAT MR#: [id number] Acct: [id number] Name: ESTRELLITA GARCIA Rep #: [id number] : 1970 F 54 From: Dennis Jones DO PCP: Dr. Helen Avilez, Status: [facility] Study:SCRN MAMM (CAD)W/RUIZ BILAT Date of Exa m: 03/26/25 Exam# [id number] Ordering Dr: Myriam Liu INVESTMENT BROKER-C EXAM: SCRN MAMM (CAD)W/RUIZ BILAT DATE: 03/26/2025 CLINICAL HISTORY: F, Age 54 y/o , SCREENING BREAST CANCER RISK ASSESSMENT: Has not been calculated. TECHNIQUE: Bilateral screening digital breast tomosynthesis with 2D and 3D images. Computeraided detection. COMPARISON: Prior exam(s) dated 03/13/2024 and 03/18/2023. FINDINGS: TISSUE DENSITY: The breast tissue is composed of scattered area of fibroglandular density. Bilateral Breast Mammographic Findings: There are no suspicious masses, suspicious cluster of microcalcifications, architectural distortion or secondary signs of malignancy identified in either breast. Benign-appearing round calcifications are seen in both breasts. Stable partially obscured isodense masses are seen in both breasts. A radiopaque clip is seen inthe superior outer aspect of the right breast. The biopsy was benign. Post biopsy site is stable. BI/SCRN MAMM (CAD)W/RUIZ BILAT IMPRESSION: OVERALL FINAL ASSESSMENT: BIRADS 2 BENIGN FINDING RECOMMENDATION: Routine annual follow-up in 1 Year A letter with findings and recommendations will be mailed to the patient. Reading Location: [id number] CC: BESS Liu; Dr. Helen Avilez DO ~ Golf Superintendent: Signed [facility] SCRN MAMM (CAD)W/RUIZ BILATo n 03-26-2025 SCRN MAMM (CAD)W/RUIZ BILAT [facility] Imaging Services [address] [place] [address] [id number] SCRN MAMM (CAD)W/RUIZ BILAT MR#: [id number] Acct: [id number] Name: ESTRELLITA GARCIA Rep #: [id number] : 1970 F 54 From: Ursula Valdez PCP: Dr. Helen Avilez DO Status: [facility] Study: SCRN MAMM (CAD)W/RUIZ BILAT Date of Exam: 12/19 Exam# [id number] Ordering Dr: Myriam Liu EXAM: SCRN MAMM (CAD)W/RUIZ BILAT DATE: 03/26/2025 CLINICAL HISTORY: F, Age 54 y/o , SCREENING BREAST CANCER RISK ASSESSMENT: Has not been calculated. TECHNIQUE: Bilateral screening digital breast tomosynthesis with 2D and 3D images. Computer aided detection. COMPARISON: Prior exam(s) dated 03/13/2024 and 03/18/2023. FINDINGS: TISSUE DENSITY: The breast tissue is composed of scattered area of fibroglandular density. Bilateral Breast Mammographic Findings: There are no suspicious masses, suspicious cluster of microcalcifications, architectural distortion or secondary signs of malignancy identified in either breast. Benign-appearing round calcifications are seen in both breasts. Stable partially obscured isodense masses are seen in both breasts. A radiopaque clip is seen in the superior outer aspect of the right breast. The biopsy was benign. Post biopsy site is stable. BI/SCRN MAMM (CAD)W/RUIZ BILAT IMPRESSION: OVERALL FINAL ASSESSMENT: BIRADS 2 BENIGN FINDING RECOMMENDATION: Routine annual follow-up in 1 Year A letter with findings and recommendations will be mailed to the patient. Reading Location: [id number] CC: BESS Liu; Dr. Helen Avilez DO Golf Superintendent: Signed Normal [facility] Gastroenterology Visit Repor ton 03-13-2025 Gastroenterology Visit Report [facility] [address] [place] [address] OFFICE VISIT Date of Service: 03/13/25 MR#: [id number] Acct: [id number] Name: ESTRELLITA GARCIA Rep #: [id number] : 1970 Provider: SUMMER Michaels Age/Sex: 54/F Location: [facility] Status: Signed Intake Vital Signs 07/25/24 12:27 01/24/25 09:33 Height 5 ft 7 in 5 ft 7 in Intake Visit Reasons: 6 M FU Chief Complaint: GERD Allergies Penicillins (PCN) Allergy (Verified 01/24/25 09:26) Angioedema Medications ???Medication ???Instructions ???Recorded ???Confirmed ???Type thyroid (pork) 90 mg tablet 90 mg PO MOTUTHFRSA 10/25/1801/24 History ([place] Thyroid) venlafaxine 37.5 mg 75 mg PO DAILY 30 days #30 caps 01/24/25 History capsule,extended release 24 hr (Effexor XR) ascorbic acid (vitamin C) 500 mg 500 mg PO DAILY 03/02/22 01/24/25 History capsule biotin 2,500 mcg capsule 2,500 mcg PO DAILY 03/02/22 History cholecalciferol (vitamin D3) 50 50 mcg PO DAILY 03/02/22 01/24/25 History mcg (2,000 unit) capsule zinc 50 mg tablet 50 mg PO DAILY 03/02/22 01/24/25 H istory progesterone micronized 200 mg 100 mg PO QHS 03/31/24 01/24/25 Hi story capsule estradiol 0.025 mg/24 hr 1 patch transdermal .TWICE WEEKLY 07/24/24 01/24/25 History semiweekly transdermal patch methylprednisolone 4 mg tablets in See Rx Instructions PO PER PKG D IR 01/24/25 01/24/25 Rx a dose pack (Medrol (Walt)) #21 tabs testosterone 100 mg/mL mg IM 01/24/25 01/24/25 History intramuscular suspension omeprazole 20 mg capsule,delayed 20 mg PO ONCE 03/13/25 History release PFSH Medical History (Updated 09/26/24 @ 09:40 by SUMMER Michaels) Lung nodules Gastric reflux Lung nodule, solitary History of tobacco use Encounter for screening for malignant neoplasm of lung Gastroenteritis Cellulitis of left ear canal Depression Anxiety Thyroid disease Injury of back Heartburn Contact dermatitis due to poison carlos Surgical History Hx of colonoscopy S/P oophorectomy Status post tonsillectomy and adenoidectomy History of surgery of uterus Social History Smoking Status: Former smoker (quit 2015) alcohol intake: never HPI HPI Chief Complaint: GERD Details: ESTRELLITA GARCIA, is a 54 F who presents to the office today for f/u. BGI established in Jun 2024 with increased reflux symptoms and constipation after induction of semaglutide. EGD 07.25.24; LA Grade B reflux esophagitis with no bleeding. Biopsied. - Mild Schatzki ring. - Small hiatal hernia. - Normal first portion of the duodenum. Omeprazole increased to 20 mg BID Last OV 09.26.24 Pt has been doing well. Heartburn well controlled with PPI. [place] concern is constipation. Takes miralax 5 days in a row but then will have loose stools. Recommended fiber supplement. OV 03.13.25; Pt is doing well since last visit. Still taking omeprazole once a day. Constipation resolved with fiber cereal. She is typically having a daily bm. SHe is no longer on semaglutide. ROS Const Constitutional: No fatigue, fever(s) or weight change ENT ENT: No difficulty swallowing Gastro GI: No abdominal pain, belching, bloating, change in bowel habits, change in stool character, coffee ground emesis, constipation, cramping, diarrhea, heartburn, difficulty swallowing, feeling full early, excessive flatus, incontinent of stools, Vomiting blood/hematemesis, Blood in stool, loose stools, Black,tarry stools, nausea/dyspepsia, pain with swallowing, vomiting or other Musc Musculoskeletal: Positive for stiffness; No joint pain Skin Skin: Positive for dry skin and itchy eyes; No yellowing of the eye Psych Psychiatric: No anxiety and No depression Endo Endocrine: No fatigue or weight change Aller/Imm Allergy/Immunologic: Positive for itchy eyes Xavier/Lymp Hematologic/Lymphatic : No easy bleeding or easy bruising Exam Const General: cooperative, healthy appearing and comfortable Nutritional Appearance: average body habitus Orientation: alert and awake HENMT Head: normal to inspection Nose: external nose normal Eyes General: appearance normal, both eyes and all related structures Neck Neck: normal visual inspection Chest Chest palpation inspection: normal inspection of the chest Resp Effort Inspection: normal respiratory effort and able to speak in complete sentences GI Inspection: normal to inspection Skin General: no rashes or lesions noted Assessment and Plan Assessment and Plan (1) Constipation: Status: Acute Plan: This is a 54 yo female pt here today for f/u regarding her GERD and constipation. Pt GERD has been (more content not included)... Normal [facility] Pelvic w/ Transvaginalon Pelvic w/ Transvaginal [facility] Imaging Services [address] [place] [address] Pelvic w/ Transvaginal MR#: [id number] Acct: [id number] Name: ESTRELLITA GARCIA Rep #: [id number] : 1970 F 54 From: Moris Chapman MD PCP: Dr. Helen Avilez, DO Status: REG CLI Study: Pelvic w/ Transvaginal Date of Exam: 02/27/25 Exam# [id number] Ordering Dr: Myriam Liu PROCEDURE: PELVIC W/ TRANSVAGINAL, 02/27/2025 REASON FOR EXAM: PELVIC PAIN TECHNIQUE: Grayscale and color doppler transabdominal and transvaginal pelvic ultrasound was performed. COMPARISON: 02/29/2024 FINDINGS: Exam limited by shadowing bowel gas. Uterus: 7.5 x 4.4 x 3.6 cm, retroverted. Heterogeneous echotexture. Endometrium: Ill-defined and difficult to measure, roughly 3 mm. Cervix: Unremarkable. Right ovary: Again not visualized likely due to positioning and/or shadowing bowel gas. Left ovary: 2.5 x 1.6 x 1.3 cm. Unremarkable. Free fluid: None visualized. Other: Estimated bladder volume 205 mL.. US/Pelvic w/ Transvaginal IMPRESSION: 1. No acute abnormality. If unexplained symptoms persist, consider CT. 2. Heterogeneous uterus may indicate adenomyosis. 3. RIGHT ovary again not visualized. 4. Additional description as above. Reading Location: [id number] CC: BESS Liu; Dr. Helen Avilez DO Golf Superintendent: Signed Normal [facility] Free T3on 02-16-2025 Free T3 [Mass/Vol] 2.8 pg/mL Normal 2.18-3.98 [facility] Comment on above: Performed By: #### L 506.0400, L501.1400, L501.9520, L501.96887 #### [facility] [place], [place], [id number] Free [id number] By: Helen real on 02-16-2025 Free T3 [Mass/Vol] 2.8 pg/mL 2.18-3.98 [facility] Serum or plasma uric acid me asurement (mass/volume)Ordered By: Helen Avilez on 02-16-2025 Urate [Mass/Vol] 3.7 mg/dL 2.6-6.0 [facility] Comment on above: The drugs N-Acetylcy steine and Metamizole may falsely depress this assay. T4 Free Directon 02-16-2025 T4 FREE DIRECT 0.50 ng/dL Low 0.76-1.46 [facility] Comment on above: Performed By: #### L 506.0400, L501.1400, L501.9520, L501.91977 #### [facility] [address] [place], [place], [id number] T4 freeOrdered By: Helen Steven s on 02-16-2025 Free T4 [Mass/Vol] 0.50 ng/dL Low 0.76-1.46 [facility] TSH DL <= 0.005 mIU/L QnOrde red By: Helen Avilez on 02-16-2025 TSH Qn 11.700 uIU/mL High 0.300-4.200 [facility] Thyroid Stim Hormone (TSH)on 02-16-2025 TSH 11.700 uIU/mL High 0.300-4.200 [facility] Comment on above: Performed By: #### L 506.0400, L501.1400, L501.9520, L501.99704 #### [facility] [address] [place], [place], [id number] Uric Acidon 02-16-2025 URIC 3.7 mg/dL Normal 2.6-6.0 [facility] Comment on above: Result Comment: The drugs N-Acetylcysteine and Metamizole may falsely depress this assay. Performed By: #### L 506.0400, L501.1400, L501.9520, L501.27562 #### [facility] [address] [place], [place], [id number] Absolute lymphocyte countOrd ered By: HEALTH ASSESSMENT on 02-01-2025 Lymphocytes Auto (Unsp spec) [#/Vol] 1.97 10*3/uL 0.83-4.51 [facility] Absolute neutrophil countOrd ered By: HEALTH ASSESSMENT on 02-01-2025 Neutrophils (Bld) [#/Vol] 3.0 10*3/uL 2.0-7.7 [facility] Absolute nucleated red blood cell countOrdered By: HEALTH ASSESSMENT on 02-01-2025 Nucleated RBC (Bld) [#/Vol] 0.00 10*3/uL 0-5 [facility] Anion gap in Serum or Plasma Ordered By: HEALTH ASSESSMENT on 02-01-2025 Anion gap [Moles/Vol] 10 mmol/L 5-15 [facility] BUN/creatinine ratioOrdered By: HEALTH ASSESSMENT on 02-01-2025 Urea nitrogen/Creatinine [Mass ratio] 21.8 mg/mg High 10-20 [facility] Bilirubin directOrdered By: HEALTH ASSESSMENT on 02-01-2025 Bilirubin.direct [Mass/Vol] 0.09 mg/dL 0.00-0.30 [facility] Bilirubin, totalOrdered By: HEALTH ASSESSMENT on 02-01-2025 Bilirubin [Mass/Vol] 0.26 mg/dL 0.00-1.30 [facility] CBC, Employeeon 02-01-2025 Absolute Lymph 1.97 X10 3/uL Normal 0.83-4.51 [facility] Comment on above: Performed By: #### L 100.0200, L400.0100, L500.2900 #### [facility] [address] [place], [address] Absolute Neut 3.0 X10 3/uL Normal 2.0-7.7 [facility] Comment on above: Performed By: #### L 100.0200, L400.0100, L500.2900 #### [facility] [address] [place], [address] Basophils/100 WBC (Bld) 1.3 % High 0-1 [facility] Comment on above: Performed By: #### L 100.0200, L400.0100, L500.2900 #### [facility] [address] [place], [address] Eosinophils/100 WBC (Bld) 6.2 % High 0-5 [facility] Comment on above: Performed By: #### L 100.0200, L400.0100, L500.2900 #### [facility] [address] [place], [address] Erythrocyte distribution width (RBC) [Ratio] 13.2 % Normal 11.6-14.6 [facility] Comment on above: Performed By: #### L 100.0200, L400.0100, L500.2900 #### [facility] [address] [place], [address] Hematocrit (Bld) [Volume fraction] 39.4 % Normal 37-47 [facility] Comment on above: Performed By: #### L 100.0200, L400.0100, L500.2900 #### [facility] [address] [place], [address] Hemoglobin (Bld) [Mass/Vol] 13.0 g/dL Normal 12.0-15.0 [facility] Comment on above: Performed By: #### L 100.0200, L400.0100, L500.2900 #### [facility] [address] [place], [address] Lymphocytes/100 WBC (Bld) 32.2 % Normal 19-41 [facility] Comment on above: Performed By: #### L 100.0200, L400.0100, L500.2900 #### [facility] [address] [place], [address] MCH (RBC) [Entitic mass] 29.8 pg Normal 27.0-32.0 [facility] Comment on above: Performed By: #### L 100.0200, L400.0100, L500.2900 #### [facility] [address] [place], [address] MCHC (RBC) [Mass/Vol] 33.0 g/dL Normal 32-36 [facility] Comment on above: Performed By: #### L 100.0200, L400.0100, L500.2900 #### [facility] [address] [place], [address] MCV (RBC) [Entitic vol] 90.4 fL Normal 81-99 [facility] Comment on above: Performed By: #### L 100.0200, L400.0100, L500.2900 #### [facility] [address] [place], [address] Monocytes/100 WBC (Bld) 6.9 % Normal 0-10 [facility] Comment on above: Performed By: #### L 100.0200, L400.0100, L500.2900 #### [facility] [address] [place], [address] Neutrophils/100 WBC (Bld) 49.5 % Normal 47-70 [facility] Comment on above: Performed By: #### L 100.0200, L400.0100, L500.2900 #### [facility] [address] [place], [address] NRBC # 0.00 10 3/uL Normal 0-5 [facility] Comment on above: Performed By: #### L 100.0200, L400.0100, L500.2900 #### [facility] [address] [place], [address] Nucleated RBC (Bld) [#/Vol] 0 10*3/uL Normal 0-5 [facility] Comment on above: Performed By: #### L 100.0200, L400.0100, L500.2900 #### [facility] [address] [place], [address] Platelet mean volume (Bld) [Entitic vol] 9.0 fL Normal 6.2-12.0 [facility] Comment on above: Performed By: #### L 100.0200, L400.0100, L500.2900 #### [facility] [address] [place], [address] Platelets (Bld) [#/Vol] 298 10*3/uL Normal 150-450 [facility] Comment on above: Performed By: #### L 100.0200, L400.0100, L500.2900 #### [facility] [address] [place], [address] RBC (Bld) [#/Vol] 4.36 10*6/uL Normal 4.2-5.4 [facility] Comment on above: Performed By: #### L 100.0200, L400.0100, L500.2900 #### [facility] [address] [place], [address] RDW SD 43.8 fl Normal 35.1-43.9 [facility] Comment on above: Performed By: #### L 100.0200, L400.0100, L500.2900 #### [facility] [address] [place], [address] WBC (Bld) [#/Vol] 6.1 10*3/uL Normal 4.4-11.0 [facility] Comment on above: Performed By: #### L 100.0200, L400.0100, L500.2900 #### [facility] [address] [place], [address] Calculated very low density lipoprotein (VLDL) cholesterol measurementOrdered By: HEALTH ASSESSMENT on 02-01-2025 Calculated very low density lipoprotein (VLDL) cholesterol measurement 26 mg/dL 5-40 [facility] Carbon dioxide, total [Moles /volume] in Central venous bloodOrdered By: HEALTH ASSESSMENT on 02-01-2025 CO2 [Moles/Vol] 25.2 mmol/L 21.0-32.0 [facility] Chloride assayOrdered By: HE ALTH ASSESSMENT on 02-01-2025 Chloride [Moles/Vol] 106 mmol/L 98-108 [facility] Employee Profileon Cholesterol in LDL [Mass/Vol] 120 mg/dL Normal 0-130 [facility] Comment on above: Performed By: #### L 100.0200, L400.0100, L500.2900 #### [facility] [address] [place], [address] Erythrocyte distribution wid th ratioOrdered By: HEALTH ASSESSMENT on 02-01-2025 Erythrocyte distribution width (RBC) [Ratio] 13.2 % 11.6-14.6 [facility] Erythrocyte distribution wid th standard deviationOrdered By: HEALTH ASSESSMENT on 02-01-2025 Erythrocyte distribution width (RBC) [Ratio] 43.8 fl 35.1-43.9 [facility] Glomerular filtration rate ( GFR) estimation/1.73 sq m using serum, plasma, or whole bOrdered By: HEALTH ASSESSMENT on 02-01-2025 GFR/1.73 sq M.predicted among non-blacks MDRD (S/P/Bld) [Vol rate/Area] 68 mL/min/{1.73_m2} >60 [facility] Comment on above: mL/min/1.73m2 CKD-EP I Creatinine Equation (2020) Hematocrit Auto (Bld) [Volum e fraction]Ordered By: HEALTH ASSESSMENT on 02-01-2025 Hematocrit (Bld) [Volume fraction] 39.4 % 37-47 [facility] Hemoglobin measurementOrdere d By: HEALTH ASSESSMENT on 02-01-2025 Hemoglobin (Bld) [Mass/Vol] 13.0 g/dL 12.0-15.0 [facility] - Chemistry and C hemistry - challengeOrdered By: HEALTH ASSESSMENT on 02-01-2025 AST [Catalytic activity/Vol] 19 U/L <32 [facility] Lactate dehydrogenase (LDH) measurementOrdered By: HEALTH ASSESSMENT on 02-01-2025 LDH [Catalytic activity/Vol] 181 U/L 84-246 [facility] Comment on above: Hemolysis present, R esults could be affected. Low density lipoprotein (LDL ) cholesterol measurementOrdered By: HEALTH ASSESSMENT on 02-01-2025 Cholesterol in LDL [Mass/Vol] 120 mg/dL 0-130 [facility] MCV (mean corpuscular volume ) determinationOrdered By: HEALTH ASSESSMENT on 02-01-2025 MCV (RBC) [Entitic vol] 90.4 fL 81-99 [facility] Mean corpuscular hemoglobin (MCH) determinationOrdered By: HEALTH ASSESSMENT on 02-01-2025 MCH (RBC) [Entitic mass] 29.8 pg 27.0-32.0 [facility] Mean corpuscular hemoglobin concentration (MCHC) determinationOrdered By: HEALTH ASSESSMENT on 02-01-2025 MCHC (RBC) [Mass/Vol] 33.0 g/dL 32-36 [facility] Mean platelet volume determi nationOrdered By: HEALTH ASSESSMENT on 02-01-2025 Platelet mean volume (Bld) [Entitic vol] 9.0 fL 6.2-12.0 [facility] Neutrophil percentageOrdered By: HEALTH ASSESSMENT on 02-01-2025 Neutrophils/100 WBC (Bld) 49.5 % 47-70 [facility] Nucleated red blood cell per centageOrdered By: HEALTH ASSESSMENT on 02-01-2025 Nucleated RBC/100 WBC (Bld) [Ratio] 0 % 0-5 [facility] Platelet countOrdered By: HE ALTH ASSESSMENT on 02-01-2025 Platelets (Bld) [#/Vol] 298 10*3/uL 150-450 [facility] Potassium measurement (mass/ volume)Ordered By: HEALTH ASSESSMENT on 02-01-2025 Potassium (Unsp spec) [Mass/Vol] 4.5 mmol/L 3.3-5.1 [facility] RBC Auto (Bld) [#/Vol]Ordere d By: HEALTH ASSESSMENT on 02-01-2025 RBC (Bld) [#/Vol] 4.36 10*6/uL 4.2-5.4 [facility] Screening total cholesterol/ high density lipoprotein (HDL) cholesterol ratioOrdered By: HEALTH ASSESSMENT on 02-01-2025 Cholesterol.total/Choles terol in HDL [Mass ratio] 3.67 {ratio} [facility] Serum creatinine measurement (mass/volume)Ordered By: HEALTH ASSESSMENT on 02-01-2025 Creatinine [Mass/Vol] 0.99 mg/dL 0.70-1.20 [facility] Serum globulin measurementOr dered By: HEALTH ASSESSMENT on 02-01-2025 Globulin (S) [Mass/Vol] 3.0 g/dL 2.2-4.2 [facility] Serum glucose measurement (m ass/volume)Ordered By: HEALTH ASSESSMENT on 02-01-2025 Glucose [Mass/Vol] 96 mg/dL 70-99 [facility] Serum or plasma alanine jaffe otransferase (ALT) measurementOrdered By: HEALTH ASSESSMENT on 02-01-2025 ALT [Catalytic activity/Vol] 23 U/L <35 [facility] Serum or plasma albumin randy urement (mass/volume)Ordered By: HEALTH ASSESSMENT on 02-01-2025 Albumin [Mass/Vol] 4.1 g/dL 3.5-5.0 [facility] Serum or plasma albumin/glob ulin mass ratioOrdered By: HEALTH ASSESSMENT on 02-01-2025 Albumin/Globulin [Mass ratio] 1.4 {ratio} 0.9-2.4 [facility] Serum or plasma alkaline mary sphatase measurementOrdered By: HEALTH ASSESSMENT on 02-01-2025 ALP [Catalytic activity/Vol] 83 U/L 35-104 [facility] Serum or plasma calcium randy urement (mass/volume)Ordered By: HEALTH ASSESSMENT on 02-01-2025 Calcium [Mass/Vol] 9.2 mg/dL 7.6-11.0 [facility] Serum or plasma cholesterol in HDL measurement (mass/volume)Ordered By: HEALTH ASSESSMENT on 02-01-2025 Cholesterol in HDL [Mass/Vol] 55 mg/dL >40 [facility] Comment on above: National Cholesterol Education Program (NCEP) guidelines:<40 mg/dL: Low HDL-cholesterol (major risk factor for CHD)>= 60 mg/dL: High HDL-cholesterol (negative risk factor for CHD)HDL-cholesterol is affected by a number of factors, e.g. smoking, exercise, hormones, sex and age. Serum or plasma cholesterol measurement (mass/volume)Ordered By: HEALTH ASSESSMENT on 02-01-2025 Cholesterol [Mass/Vol] 201 mg/dL <201 [facility] Comment on above: Cholesterol level, D esirable <200 mg/dLBorderline high cholesterol 200-239 mg/dLHigh cholesterol >=240 mg/dLRecommendations of the NCEP Adult Treatment Panel for the following risk-cutoff thresholds for the [place] population. Serum or plasma urea nitroge n measurement (mass/volume)Ordered By: HEALTH ASSESSMENT on 02-01-2025 Urea nitrogen [Mass/Vol] 22 mg/dL High 4-19 [facility] Serum or plasma uric acid me asurement (mass/volume)Ordered By: HEALTH ASSESSMENT on 02-01-2025 Urate [Mass/Vol] 3.9 mg/dL 2.6-6.0 [facility] Comment on above: The drugs N-Acetylcy steine and Metamizole may falsely depress this assay. Sodium levelOrdered By: [facility] ASSESSMENT on 02-01-2025 Sodium [Moles/Vol] 141 mmol/L 133-145 [facility] Total proteinOrdered By: [facility] ASSESSMENT on 02-01-2025 Protein [Mass/Vol] 7.0 g/dL 5.9-8.4 [facility] Triglycerides measurementOrd ered By: HEALTH ASSESSMENT on 02-01-2025 Triglyceride [Mass/Vol] 130 mg/dL <199 [facility] Comment on above: The drugs N-Acetylcy steine and Metamizole may falsely depress this assay. Normal range: <150 mg/dLBorderline High: 150-199 mg/dLHigh: 200-499 mg/dLVery High: >500 mg/dL Urinalysis, Employeeon 02-01 BILIRUBIN URINE Normal Negative [facility] Comment on above: Order Comment: Urine , Random Result Comment: PT R EFUSED Performed By: #### L 100.0200, L400.0100, L500.2900 #### [facility] [address] [place], [place], [id number] Clarity (U) Normal Clear [facility] Comment on above: Order Comment: Urine , Random Result Comment: PT R EFUSED Performed By: #### L 100.0200, L400.0100, L500.2900 #### [facility] [address] [place], [place], [id number] Color (U) Normal Yellow [facility] Comment on above: Order Comment: Urine , Random Result Comment: PT R EFUSED Performed By: #### L 100.0200, L400.0100, L500.2900 #### [facility] [address] [place], [address] GLUCOSE, UR Normal Normal [facility] Comment on above: Order Comment: Urine , Random Result Comment: PT R EFUSED Performed By: #### L 100.0200, L400.0100, L500.2900 #### [facility] [address] [place], [address] KETONE UR Normal Negative [facility] Comment on above: Order Comment: Urine , Random Result Comment: PT R EFUSED Performed By: #### L 100.0200, L400.0100, L500.2900 #### [facility] [address] [place], [address] LEUK ESTERASE Normal Negative [facility] Comment on above: Order Comment: Urine , Random Result Comment: PT R EFUSED Performed By: #### L 100.0200, L400.0100, L500.2900 #### [facility] [address] [place], [address] Nitrite Ql (U) Normal Negative [facility] Comment on above: Order Comment: Urine , Random Result Comment: PT R EFUSED Performed By: #### L 100.0200, L400.0100, L500.2900 #### [facility] [address] [place], [address] OCCULT BLOOD-UR Normal Negative [facility] Comment on above: Order Comment: Urine , Random Result Comment: PT R EFUSED Performed By: #### L 100.0200, L400.0100, L500.2900 #### [facility] [address] [place], [address] pH UR Normal 5.0 - 8.0 [facility] Comment on above: Order Comment: Urine , Random Result Comment: PT R EFUSED Performed By: #### L 100.0200, L400.0100, L500.2900 #### [facility] [address] [place], [address] PROT DIPSTX Normal Negative [facility] Comment on above: Order Comment: Urine , Random Result Comment: PT R EFUSED Performed By: #### L 100.0200, L400.0100, L500.2900 #### [facility] [address] [place], [address] SP.GR. DIPSTX Normal 1.002-1.030 [facility] Comment on above: Order Comment: Urine , Random Result Comment: PT R EFUSED Performed By: #### L 100.0200, L400.0100, L500.2900 #### [facility] [address] [place], [address] UR Preservative Normal [facility] Comment on above: Order Comment: Urine , Random Result Comment: PT R EFUSED Performed By: #### L 100.0200, L400.0100, L500.2900 #### [facility] [address] [place], [address] UROBILI Normal Normal [facility] Comment on above: Order Comment: Urine , Random Result Comment: PT R EFUSED Performed By: #### L 100.0200, L400.0100, L500.2900 #### [facility] [address] [place], [address] White blood cell (WBC) count Ordered By: HEALTH ASSESSMENT on 02-01-2025 WBC (Bld) [#/Vol] 6.1 10*3/uL 4.4-11.0 [facility] Chest PA and Lateralon 01-24 Chest PA and Lateral [facility] Imaging Services [address] [place] [address] Chest PA and Lateral MR#: [id number] Acct: [id number] Name: SESTRELLITA Rep #: [id number] : 1970 F 54 From: Moris Cano MD PCP: Dr. Helen Avilez DO Status: REG CLI Study: Chest PA and Lateral Date of Exam: 01/24/25 Exam# [id number] Ordering Dr: Garrick Neves PA EXAM: XR Chest, 2 Views CLINICAL INDICATION: COUGH, RIGHT ANTERIOR CHEST PAIN TECHNIQUE: Frontal and lateral views of the chest. COMPARISON: No relevant prior studies available. FINDINGS: LUNGS AND PLEURAL SPACES: Unremarkable. No consolidation. No pneumothorax. HEART: Unremarkable. No cardiomegaly. MEDIASTINUM: Unremarkable. Normal mediastinal contour. BONES/JOINTS: Unremarkable. No acute fracture. RAD/Chest PA and Lateral IMPRESSION: No acute cardiopulmonary process. Reading Location: [facility] CC: Dr. Helen Avilez DO; [employer] Superintendent: Signed Normal [facility] - Microbiology an d Antimicrobial susceptibilityOrdered By: Garrick Neves on 01-24-2025 SARS-CoV-2 (COVID-19) RNA REID+probe Ql (Unsp spec) Not detected [facility] No Panel InformationOrdered By: Garrick Neves on 01-24-2025 POC Nasal Swab Influenza A,B Not detected [facility] POC Nasal Swab RSV Not detected [facility] Office Visit Reporton 2024 Office Visit Report [facility] [address] [place] [address] OFFICE VISIT Date of Service: 01/24/25 MR#: [id number] Acct: [id number] Patient: ESTRELLITA GARCIA Rep #: [id number] : 1970 Provider: SUMMER Cotto Age/Sex: 54/F Location: [facility] Status: Signed Intake Vital Signs 07/25/24 12:27 Height 5 ft 7 in Weight: 189 lb 2 oz BMI 29.6 BP 114/73 Blood Pressure Location Lt brachial Position Sitting Respiration 18 Pulse 69 Pulse Source Monitor Temp 98.2 F Temp Source Temporal Pulse Oximetry (%) 97 Oxygen Delivery Method room air Intake Visit Reasons: COVID-19 Allergies Penicillins (PCN) Allergy (Verified 01/24/25 09:26) Angioedema Nurse's Note: Patient here for a Cepheid test per her employment. Assessment and Plan Assessment and Plan Orders: Orders POC Cepheid Covid, FluAB, RSV Today 01/24/25 0949 Date Garrick WHEELER Cosigner Signature: Date (if applicable) CC: Normal [facility] Urgent Care Visit Reporton 0 01-24-2025 Urgent Care Visit Report [facility] [address], [address] [place] [address] OFFICE VISIT Date of Service: 01/24/25 MR#: [id number] Acct: [id number] Name: ESTRELLITA GARCIA Rep #: [id number] : 1970 Provider: SUMMER Cotto Age/Sex: 54/F Location: [facility] Status: Signed Intake Vital Signs 07/25/24 12:27 01/24/25 09:33 Height 5 ft 7 in 5 ft 7 in Weight: 189 lb 2 oz 191 lb 8 oz BMI 29.6 29.9 BP 114/73 102/66 Blood Pressure Location Lt brachial Position Sitting Sitting Respiration 18 Pulse 69 76 Pulse Source Monitor Temp 98.2 F 98.0 F Temp Source Temporal Oral Pulse Oximetry (%) 97 98 Oxygen Delivery Method room air room air Intake Visit Reasons: SORE THROAT, CONGESTION Accompanied by: Allergies Penicillins (PCN) Allergy (Verified 01/24/25 09:26) Angioedema Medications ???Medication ???Instructions ???Recorded ???Confirmed ???Type thyroid (pork) 90 mg tablet 90 mg PO MOTUTHFRSA 10/25/1801/24 History ([place] Thyroid) venlafaxine 37.5 mg 75 mg PO DAILY 30 days #30 caps 01/24/25 History capsule,extended release 24 hr (Effexor XR) ascorbic acid (vitamin C) 500 mg 500 mg PO DAILY 03/02/22 01/24/25 History capsule biotin 2,500 mcg capsule 2,500 mcg PO DAILY 03/02/22 History cholecalciferol (vitamin D3) 50 50 mcg PO DAILY 03/02/22 01/24/25 History mcg (2,000 unit) capsule zinc 50 mg tablet 50 mg PO DAILY 03/02/22 01/24/25 H istory progesterone micronized 200 mg 100 mg PO QHS 03/31/24 01/24/25 Hi story capsule estradiol 0.025 mg/24 hr 1 patch transdermal .TWICE WEEKLY 07/24/24 01/24/25 History semiweekly transdermal patch omeprazole 20 mg capsule,delayed 20 mg PO BID #180 caps 08/04/24 Rx release methylprednisolone 4 mg tablets in See Rx Instructions PO PER PKG D IR 01/24/25 01/24/25 Rx a dose pack (Medrol (Walt)) #21 tabs testosterone 100 mg/mL mg IM 01/24/25 01/24/25 History intramuscular suspension Nurse's Note: Patient has ST and congestion. Patient states the sore throat started Sat with nausea and then Wednesday the congestion started. Patient has pain in her right lung coming home from [place]. Patient has no SOB or wheezing. [facility] Medical History (Updated 09/26/24 @ 09:40 by SUMMER Michaels) Lung nodules Gastric reflux Lung nodule, solitary History of tobacco use Encounter for screening for malignant neoplasm of lung Gastroenteritis Cellulitis of left ear canal Depression Anxiety Thyroid disease Injury of back Heartburn Contact dermatitis due to poison carlos Surgical History Hx of colonoscopy S/P oophorectomy Status post tonsillectomy and adenoidectomy History of surgery of uterus Social History Smoking Status: Former smoker (quit 2015) alcohol intake: never HPI HPI Details: ESTRELLITA GARCIA, is a 54 F who presents to the office today for initial evaluation at the [facility] for approximately 4-day history of irritated/sore throat, nasal congestion, nausea - as well as feeling right lung fullness upon coming home from [place] around the same time. Patient notes no complaints of fever, chills, sweats, lightheadedness/dizzi ness, emesis/diarrhea, or shortness of breath though appreciates scant wheezing on occasion. Patient is concerned as she has been exposed to coworker with COVID-19 and would like to be screened for the same. No kenn-fby-fxotija Proxima taken to assist. No other associated symptoms and no other alleviating/aggravati ng factors. ROS Const Constitutional: No other (As above) Exam Const General: cooperative, healthy appearing and no acute distress Orientation: alert, awake and oriented x3 HENMT Head: normal to inspection Ears: hearing grossly normal bilaterally, external ears normal, TM's normal bilaterally and EAC's normal Nose: external nose normal, nares normal, septum normal and clear nasal discharge Face and sinus: normal facial exam, sinuses nontender and face symmetric Mouth: oral mucosae normal, lip normal, tongue normal and oropharynx normal Throat: posterior oropharynx normal, tonsils normal, uvula midline and no postnasal drainage Eyes General: appearance normal, both eyes and all related structures Neck Neck: normal visual inspection, full ROM, no lymphadenopathy, no meningeal signs and supple Neck mass: No Thyroid: thyroid normal Lymphatic: no lymphadenopathy noted Chest Chest palpation inspection: normal inspection of the chest Resp Effort Inspection: normal respiratory effort, able to speak in complete sentences and no unsolicited cough during today's exam Auscultation: Bilateral: Clear to Auscultation Cardio (more content not included)... Normal [facility] Gastroenterology Visit Repor ton 09-26-2024 Gastroenterology Visit Report [facility] [address] [place] [address] OFFICE VISIT Date of Service: 09/26/24 MR#: [id number] Acct: [id number] Name: ESTRELLITA GARCIA Rep #: [id number] : 1970 Provider: SUMMER Michaels Age/Sex: 54/F Location: [facility] Status: Signed Intake Vital Signs 03/31/24 15:57 07/25/24 12:27 Height 5 ft 7 in 5 ft 7 in Weight: 189 lb 2 oz BMI 29.6 BP 114/73 Blood Pressure Location Lt brachial Position Sitting Respiration 18 Pulse 69 Pulse Source Monitor Temp 98.2 F Temp Source Temporal Pulse Oximetry (%) 97 Oxygen Delivery Method room air Intake Visit Reasons: 3 M FU Chief Complaint: GERD Allergies Penicillins (PCN) Allergy (Verified 07/25/24 12:26) Angioedema Nurse's Note: OV 12..24 Pt here for f/u. Reports constipation. Denies bloody stools, and N/V. Reports formed BM two times a week. Takes miralax 5 days a week. Continues omeprazole daily. Recently started Mounjaro. [facility] Medical History (Updated 09/26/24 @ 09:40 by SUMMER Michaels) Lung nodules Gastric reflux Lung nodule, solitary History of tobacco use Encounter for screening for malignant neoplasm of lung Gastroenteritis Cellulitis of left ear canal Depression Anxiety Thyroid disease Injury of back Heartburn Contact dermatitis due to poison carlos Surgical History Hx of colonoscopy S/P oophorectomy Status post tonsillectomy and adenoidectomy History of surgery of uterus Social History Smoking Status: Former smoker (quit 2015) alcohol intake: never HPI HPI Chief Complaint: GERD Details: ESTRELLITA GARCIA, is a 54 F who presents to the office today f/u. BGI established 9.4.24 w/ increased reflux symptoms and constipation after starting semaglutide. Started PPI. EGD 07.25.24; LA Grade B reflux esophagitis with no bleeding. Biopsied. - Mild Schatzki ring. - Small hiatal hernia. - Normal first portion of the duodenum. Omeprazole increased to 20 mg BID OV 12.3.25 Pt has been doing well. Her heartburn is much better and only has break through pain after missing a dose. Her main concern today is the constipation. She knows its due to the semaglutide and has plans to go off in a few months as she is scared of the increased risk of cancers. SHe is starting lifestyle changes with joining a gym and eating intuitively. She will take miralax 5 days a week and then have episodes of loose stools a few times per week. She prefers a more natural route and does not wish to be on prescription medication for constipation. ROS Const Constitutional: Positive for fatigue; No fever(s) or weight change ENT ENT: No difficulty swallowing Gastro GI: Positive for heartburn; No abdominal pain, belching, bloating, change in bowel habits, change in stool character, coffee ground emesis, constipation, cramping, diarrhea, difficulty swallowing, feeling full early, excessive flatus, incontinent of stools, Vomiting blood/hematemesis, Blood in stool, loose stools, Black,tarry stools, nausea/dyspepsia, pain with swallowing, vomiting or other Musc Musculoskeletal: Positive for joint pain, back pain, stiffness, Arthritis and sciatica Skin Skin: Positive for itchy eyes; No yellowing of the eye Psych Psychiatric: Positive for anxiety and Positive for depression Endo Endocrine: Positive for fatigue; No weight change Aller/Imm Allergy/Immunologic: Positive for itchy eyes Xavier/Lymp Hematologic/Lymphatic : No easy bleeding or easy bruising Exam Const General: cooperative and comfortable Nutritional Appearance: average body habitus and well nourished HENMT Head: normal to inspection Ears: hearing grossly normal bilaterally Nose: external nose normal Face and sinus: normal facial exam Eyes General: appearance normal, both eyes and all related structures Neck Neck: normal visual inspection Chest Chest palpation inspection: normal inspection of the chest and normal palpation of entire chest wall Resp Effort Inspection: normal respiratory effort Cardio Palpation: normal PMI Rate: regular rate Rhythm: regular rhythm GI Inspection: normal to inspection Auscultation: normal bowel sounds Percussion: normal to percussion Palpation: no hepatosplenomegaly Skin General: no rashes or lesions noted Neuro General: patient alert Extrem General: normal to inspection Psych Affect: normal affect Assessment and Plan Assessment and Plan (1) GERD (gastroesophageal reflux disease): Status: Acute Plan: This is a 54 yo female pt here today for f/u after EGD. EGD revealed inflammation. Since being on PPI therapy twice a day this has improved greatly. Her main concern is constipat (more content not included)... Normal [facility] EGD Reporton 07-25-2024 EGD Report [facility] Medical Records Department [address] [place] [address] EGD Report MR#: [id number] Acct: [id number] Name: ESTRELLITA GARCIA Rep #: [id number] : 1970 53 From: Bebeto Mcadams DO PCP: Dr. Helen Avilez DO Status:REG [facility] Patient Name: Estrellita Garcia Procedure Date: 07/25/2024 6:59 AM Date of : 1970 Age: 53 Procedure: Upper GI endoscopy Indications: Dysphagia, Heartburn Providers: Bebeto Mcadams DO Referring MD: Bebeto Mcadams DO Medicines: Monitored Anesthesia Care Patient Profile: This is a 53 year old female. Refer to note in patient chart for documentation of history and physical. Patient has symptoms. Complications: No immediate complications. Procedure: Pre-Anesthesia Assessment: - Prior to the procedure, a History and Physical was performed, and patient medications and allergies were reviewed. The patient is competent. The risks and benefits of the procedure and the sedation options and risks were discussed with the patient. All questions were answered and informed consent was obtained. Patient identification and proposed procedure were verified by the physician in the pre-procedure area. Mental Status Examination: alert and oriented. Respiratory Examination: clear to auscultation. CV Examination: normal. Prophylactic Antibiotics: The patient does not require prophylactic antibiotics. Prior Anticoagulants: The patient has taken no anticoagulant or antiplatelet agents. ASA Grade Assessment: II - A patient with mild systemic disease. After reviewing the risks and benefits, the patient was deemed in satisfactory condition to undergo the procedure. The anesthesia plan was to use monitored anesthesia care (MAC). Immediately prior to administration of medications, the patient was re-assessed for adequacy to receive sedatives. The heart rate, respiratory rate, oxygen saturations, blood pressure, adequacy of pulmonary ventilation, and response to care were monitored throughout the procedure. The physical status of the patient was re-assessed after the procedure. After obtaining informed consent, the endoscope was passed under direct vision. Throughout the procedure, the patient's blood pressure, pulse, and oxygen saturations were monitored continuously. The Endoscope was introduced through the mouth, and advanced to the second part of duodenum. The upper GI endoscopy was accomplished without difficulty. The patient tolerated the procedure well. Scope In: 7:11:05 AM Scope Out: 7:15:19 AM Total Procedure Duration Time 0 hours 4 minutes 14 seconds Findings: LA Grade B (one or more mucosal breaks greater than 5 mm, not extending between the tops of two mucosal folds) esophagitis with no bleeding was found 38 to 41 cm from the incisors. Biopsies were taken with a cold forceps for histology. Verification of patient identification for the specimen was done. Estimated blood loss was minimal. A mild Schatzki ring was found at the gastroesophageal junction. A small hiatal hernia was present. No other significant abnormalities were identified in a careful examination of the stomach. The first portion of the duodenum was normal. Impression: - LA Grade B reflux esophagitis with no bleeding. Biopsied. - Mild Schatzki ring. - Small hiatal hernia. - Normal first portion of the duodenum. Recommendation: - Discharge patient to home. - Resume previous diet. - Continue present medications. - Await pathology results. Procedure Code(s): --- Professional --- 94549, Esophagogastroduodeno scopy, flexible, transoral; with biopsy, single or multiple CPT copyright 2021 [employer]. All rights reserved. The codes documented in this report are preliminary and upon label coder review may be revised to meet current compliance requirements. Bebeto Mcadams DO 07/25/2024 7:23:36 AM This report has been signed electronically. Number of Addenda: 0 Note Initiated On: 07/25/2024 6:59 AM 07/25/24 0723 Date Bebeto Mcadams DO Cosigner Signature: Date (if indicated) CC: Dr. Helen Avilez DO; Bebeto Mcadams DO Date Dictated: 07/25/24 0659 Date Transcribed: Golf Superintendent: LO Signed Normal [facility] Low Dose CT Lung Screeningon 07-25-[address] Lung Screening [facility] Imaging Services [address] [place] [id number] Lung Screening MR#: [id number] Acct: [id number] Name: MASTERSESTRELLITA Rep #: [id number] : 1970 F 53 From: Arvin Woodward MD PCP: Dr. Helen Avilez DO Status: [facility] Study: Low Dose CT Lung Screening Date of Exam: 07/25 Exam# [id number] Ordering Dr: Tamia Still NP, [place] [id number] EXAM: CT CHEST, LUNG CANCER SCREENING WITHOUT INTRAVENOUS CONTRAST CLINICAL INDICATION: Lung cancer screening -- and gt; 20 pk yr hx; former smoker; asymptomatic TECHNIQUE: Helically acquired images were obtained of the chest without intravenous contrast using low dose (LDCT) lung cancer screening protocol. This CT exam was performed using one or more of the following dose reduction techniques: automated exposure control, adjustment of the mA and/or kV according to patient size, and/or use of iterative reconstruction technique. COMPARISON: CT Lung Cancer Screening dated 01/25/2024 FINDINGS: LUNGS AND PLEURAL SPACES: Stable oval-shaped pleural-based left lower lobe pulmonary nodule stable. Stable 6 mm pleural-based right lower lobe pulmonary nodule. Stable 3 mm right upper lobe pulmonary nodule on image 77 of sequence 2. No pneumothorax. HEART: Normal. No pericardial effusion. Normal heart size. No coronary artery calcification. MEDIASTINUM: Normal. No mediastinal or hilar adenopathy. Esophagus is unremarkable. No hiatal hernia. THYROID: Normal. No thyroid nodules or calcification. BONES/JOINTS: No suspicious lytic or blastic abnormality. VASCULATURE: No aortic aneurysm. LYMPH NODES: Normal. No enlarged lymph nodes. CT/Low Dose CT Lung Screening IMPRESSION: Stable bilateral pulmonary nodules. Lung-RADS score: 2 - Benign Appearance or Behavior. Recommend continued annual screening with a low-dose CT (LDCT) in 12 months. Electronically Signed: Arvin Woodward MD at 16:15 EDT , CC: BESS Still; Dr. Helen Avilez DO Golf Superintendent: Signed [facility] MR/POSTOP.Yana 07-25-2024 MR/POSTOP.[facility] Medical Records Department [address] [place] [address] Anesthesia Postop Eval I 07/25/24726 MR#: [id number] Acct: [id number] Name: ESTRELLITA GARCIA Rep #: [id number] : 1970 53 From: Roque Rick PCP: Dr. Helen Avilez, DO Status:REG SDC Y Race: C Location: [place] [address] Anesthesia: Postop Eval I Current Vital Signs Temperature: 97 F Pulse Rate: 68 Blood Pressure: 104/74 Respiratory Rate: 16 Pulse Ox: 100 Oxygen Delivery Method: Room Air Assessment Airway patent: Yes Spontaneous unlabored respirations: Yes Mental status: Awake and Calm nausea: No Vomiting: No Anesthesia Complication: No Fluid Hydration Crystalloid volume administer (ml): 400 Total IV fluid infused: 400 Progress Note Anesthesia document: Postop Eval 1 completed: Yes 07/25/24727 Date Roque Carter Signature: Date CC: Signed Normal [facility] [id number] [facility]-25-2024 [facility] Medical Records Department [address] [place] [address] Anesthesia Postop Eval II 07/25/2442 MR#: [id number] Acct: [id number] Name: ESTRELLITA GARCIA Rep #: [id number] : 1970 53 From: Gil Hampton MD PCP: Dr. Helen Avilez, DO Status:REG SDC Y Race: C Location: [place] [address] Anesthesia Postop Eval I Sum Postop Eval Completion status Anesthesia document: Postop Eval 1 completed: Yes Anesthesia Postop Eval I Summary Anesthesia Postop Eval I Summary: Anesthesia Postop Eval I: Assessment Summary Airway patent Yes 07/25/24 07:28 [email or web address] Spontaneous unlabored Yes 07/25/24 07:28 [email or web address] respirations Mental status Awake,Calm 07/25/24 07:28 [email or web address] nausea No 07/25/24 07:28 [email or web address] Vomiting No 07/25/24 07:28 [email or web address] Anesthesia Postop Eval I: Fluid Summary Crystalloid volume administer 400 07/25/24 07:28 [email or web address] (ml) Colloids volume administered ( ml) Blood Product volume administered (ml) Total IV fluid infused 400 07/25/24 07:28 [email or web address] Anesthesia Postop Eval I: Summary Notes Anesthesia Complication No 07/25/24 07:28 [email or web address] Anesthesia Complication Comment: Post-operative progress note Anesthesia: Postop Eval II Evaluation Mental status: Awake Pain Level: 0 nausea: No Vomiting: No 07/25/24741 Date Gil Hampton MD Cosigner Signature: Date CC: Signed Normal [facility] Oncology Visit Reporton Oncology Visit Report [facility] [address] [place] [address] OFFICE VISIT Date of Service: 07/25/24 1224 MR#: [id number] Acct: [id number] Name: ESTRELLITA GARCIA Rep #: [id number] : 1970 From: Tamia Still NP [employer]MENT [employer]ER -C Age/Sex: 53/F Location: [facility] Status: Signed HPI HPI Reviewed eligibility criteria: 53 year old F with a >20 pack year smoking history (1 ppd x 15 yrs, 1/2 ppd x 13 yrs). Smoking Status: Former smoker (quit 2015) Decision Making Patient here today for repeat LDCT chest at 6 mo interval to address LungRADS category 3 findings January 2024; 7.5 mm noncalcified nodule in the posterior medial aspect of the superior segment of the right lower lobe Engaged in shared decision making visit utilizing a visual aid. Discussed the risks and benefits of lung cancer screening including the total radiation exposure, false positive rate, over diagnosis and potential need for follow-up diagnostic testing all associated with low-dose chest CT. ROS Const Denies anorexia, Denies fatigue, Denies headache(s), Denies poor appetite and Denies weight loss ENT Denies headache(s) Card Denies chest pain, Denies dyspnea and Denies palpitations Resp Denies cough, Denies dyspnea, Denies hemoptysis and Denies wheezing GI Reports system reviewed and no additional complaints, except as documented Musc Reports system reviewed and no additional complaints, except as documented Skin/Breast Reports system reviewed and no additional complaints, except as documented Neuro Yes system reviewed and no additional complaints, except as documented and No headache(s) Psych Reports system reviewed and no additional complaints, except as documented Endo Reports system reviewed and no additional complaints, except as documented, Denies fatigue and Denies palpitations Xavier/Lymph Reports system reviewed and no additional complaints, except as documented Aller/Immun Denies wheezing Exam Const General: healthy appearing and not in acute distress Orientation: oriented x3 HENMT Head: normocephalic and atraumatic Neck Neck: no lymphadenopathy noted Resp Effort Inspection: normal respiratory effort and symmetric chest movement Auscultation: Bilateral: Clear to Auscultation Cardio Rate: regular rate Rhythm: regular rhythm Heart Sounds: S1 normal and S2 normal Psych Affect: normal affect Speech and Movement: speech and movement normal Results Results July 25, [address] Lung Screening COMPARISON: CT Lung Cancer Screening dated 01/25/2024 FINDINGS: LUNGS AND PLEURAL SPACES: Stable oval-shaped pleural-based left lower lobe pulmonary nodule stable. Stable 6 mm pleural-based right lower lobe pulmonary nodule. Stable 3 mm right upper lobe pulmonary nodule on image 77 of sequence 2. No pneumothorax. HEART: Normal. No pericardial effusion. Normal heart size. No coronary artery calcification. MEDIASTINUM: Normal. No mediastinal or hilar adenopathy. Esophagus is unremarkable. No hiatal hernia. THYROID: Normal. No thyroid nodules or calcification. BONES/JOINTS: No suspicious lytic or blastic abnormality. VASCULATURE: No aortic aneurysm. LYMPH NODES: Normal. No enlarged lymph nodes. IMPRESSION: Stable bilateral pulmonary nodules. Lung-RADS score: 2 - Benign Appearance or Behavior. Recommend continued annual screening with a low-dose CT (LDCT) in 12 months. Intake Vital Signs 01/25/24 12:04 07/25/24 06:20 07/25/24 12:27 Height 5 ft 7 in 5 ft 7 in 5 ft 7 in Weight: 189 lb 2 oz BMI 29.6 BP 114/73 Blood Pressure Location Lt brachial Position Sitting Respiration 18 Pulse 69 Pulse Source Monitor Temp 98.2 F Temp Source Temporal Pulse Oximetry (%) 97 Oxygen Delivery Method room air Intake Visit Reasons: Lung cancer screening Is patient in pain?: No Allergies Penicillins (PCN) Allergy (Verified 07/25/24 12:26) Angioedema Medications ???Medication ???Instructions ???Recorded ???Confirmed ???Type thyroid (pork) 90 mg tablet 90 mg PO MOTUTHFRSA 10/25/18 07/25/24 History ([place] Thyroid) venlafaxine 37.5 mg 75 mg PO DAILY 30 days #30 caps 10/25/18 07/25/24 History capsule,extended release 24 hr (Effexor XR) ascorbic acid (vitamin C) 500 mg 500 mg PO DAILY 03/02/22 07/25/24 History capsule biotin 2,500 mcg capsule 2,500 mcg PO DAILY 03/02/22 07/25/24 History cholecalciferol (vitamin D3) 50 50 mcg PO DAILY 03/02/22 07/25/24 History mcg (2,000 unit) capsule zinc 50 mg tablet 50 mg PO DAILY 03/02/22 07/25/24 History progesterone micronized 200 mg 100 mg PO QHS 03/31/24 07/25/24 History capsule omeprazole 20 mg capsule,delayed 20 mg PO DAILY #90 caps 06/28/24 07/25/24 Rx release estradiol 0.025 mg/24 hr 1 patch transdermal .TWICE WEE (more content not included)... Normal [facility] Special Stain Group Ion 10-0 Special Stain Group I --- -------- Patient Age/Sex Location Account Attending Physician -------- ESTRELLITA GARCIA 53/F EN [id number] Bebeto Mcadams DO -------- Specimen: [id number] Received: 07/25/24 Status: RICARDO Hong Num: [id number] Spec Type: EGD BIOPSY Subm Dr: Bebeto Mcadams DO HEADER OPERATION: EGD with biopsies PRE-OP DIAGNOSIS: Dysphagia TISSUE SUBMITTED: Distal esophagus biopsy -------- MICROSCOPIC DIAGNOSIS Distal esophagus, biopsy: Fragments of gastroesophageal mucosa with moderate chronic inflammation. Intestinal metaplasia (goblet cell metaplasia) is not identified. See comment. 07/26/2024 COMMENT Alcian blue/PAS stain with matched control is used in the evaluation of the specimen. MICROSCOPIC DESCRIPTION Slides are reviewed. GROSS DESCRIPTION Received in fixative is one container labeled with the patient's name and designated Distal esophagus biopsy. The specimen consists of multiple irregular fragments of light paiz soft tissue that in aggregate measure 1.5 x 0.6 x 0.1 cm. The specimen is totally submitted in one cassette. 07/25/2024 TC:3 CPT:66616,00448 -------- Patient Age/Sex Location Account Attending Physician -------- ESTRELLITA GARCIA 53/F EN [id number] Bebeto Mcadams, DO -------- Signed (signature on file) Dr. Kelechi Choi MD 07/26/24 1147 -------- [facility] Comment on above: Performed By: #### P SSI #### [facility] [address] [place], [address] No Panel InformationOrdered By: Helen Avilez on 11-10-2023 Free Triiodothyronine (T3) pg/dL 3.0 pg/mL 2.18-3.98 [facility] Serum or plasma thyroid stim ulating hormone (TSH) measurement (units/volume)Ordered By: Helen Avilez on 11-10-2023 TSH Qn 0.68 uIU/mL 0.358-3.74 [facility] Thin prep Papanicolaou smear with manual screeningOrdered By: Helen Avilez on 11-10-2023 Thin prep Papanicolaou smear with manual screening 0.67 ng/dL 0.76-1.46 [facility] - Microbiology an d Antimicrobial susceptibilityon 11-01-2023 S. pyogenes Ag IA Ql (Unsp spec) Negative [facility] - Chemistry and C hemistry - challengeOrdered By: Helen Avilez on 08-30-2023 Free T4 [Mass/Vol] 0.80 ng/dL 0.76-1.46 [facility] No Panel InformationOrdered By: Helen Avilez on 08-30-2023 Free Triiodothyronine (T3) pg/dL 3.4 pg/mL 2.18-3.98 [facility] Thyroid Stimulating Hormone (TSH) 0.04 uIU/mL 0.358-3.74 [facility] Serum or plasma estradiol (E 2) measurement (mass/volume)Ordered By: Helen Avilez on 08-30-2023 E2 [Mass/Vol] pg/mL [facility] Comment on above: NORMAL REFERENCE RAN GES FEMALE FOLLICULAR 21.4 - 164.8 pg/mL MID-CYCLE PEAK 49.9 - 367.2 pg/mL LUTEAL 40.2 - 259.0 pg/mL POST-MENOPAUSAL ON MHT <11.0 - 462.1 pg/mL NOT ON MHT <11.0 - 58.3 pg/mL MALE <11.0 - 52.5 pg/mL NOTE:[employer] HAS CONFIRMED THE DRUG FULVETRANT (FASLODEX) MAY CAUSE FALSELY ELEVATED ESTRADIOL RESULTS WHEN USING THIS TEST METHOD. IF PATIENT IS TAKING FULVESTRANT AN ALTERNATIVE METHOD SHOULD BE USED TO DETERMINE ESTRADIOL CONCENTRATION. Serum or plasma progesterone measurement (mass/volume)Ordered By: Helen Avilez on 08-30-2023 Progesterone [Mass/Vol] 0.24 ng/mL See Comment [facility] Comment on above: Progesterone Referen ce Table: UNITS Female: Follicular 0.15 - 1.40 ng/mL Luteal 3.34 - 25.56 ng/mL Mid-luteal 4.44 - 28.03 ng/mL Postmenopausal 0.0 - 0.73 ng/mL : 1st Trimester 11.22 - 90.00 ng/mL 2nd Trimester 25.55 - 89.40 ng/mL 3rd Trimester 48.40 -422.50 ng/mL Absolute lymphocyte countOrd ered By: HEALTH ASSESSMENT on 06-10-2023 Lymphocytes Auto (Unsp spec) [#/Vol] 1.54 10*3/uL 0.83-4.51 [facility] Absolute reticulocyte countO rdered By: HEALTH ASSESSMENT on 06-10-2023 Reticulocytes (Bld) [#/Vol] 0.00 10*3/uL 0-5 [facility] Basophil percentageOrdered B y: HEALTH ASSESSMENT on 06-10-2023 Basophil percentage 3.7 mg/dL 2.5-4.9 [facility] Bilirubin [Mass/Vol] 0.70 mg/dL 0.20-1.00 [facility] Comment on above: For patients on eltr ombopag therapy, use of Dimension [place] TBIL is not recommended. Chloride [Moles/Vol] 110 mmol/L 98-107 [facility] Cholesterol [Mass/Vol] 289 mg/dL <200 [facility] Comment on above: <200 mg/dL Desirable 200-240 mg/dL Borderline >240 mg/dL High Risk Glucose [Mass/Vol] 102 mg/dL 74-106 [facility] Comment on above: Fasting Glucose resu lt from 100 to 125 mg/dL suggests IMPAIRED HOMEOSTASIS per A.D.A. criteria. LDH [Catalytic activity/Vol] 159 U/L 84-246 [facility] Neutrophils (Bld) [#/Vol] 1.8 10*3/uL 2.0-7.7 [facility] Potassium [Moles/Vol] 4.1 mmol/L 3.5-5.1 [facility] Protein [Mass/Vol] 7.5 g/dL 6.4-8.2 [facility] Sodium [Moles/Vol] 140 mmol/L 136-145 [facility] Triglyceride [Mass/Vol] 76 mg/dL <199 [facility] Comment on above: The drugs N-Acetylcy steine and Metamizole may falsely depress this assay.Serum Triglycerides Reference Interval Normal <150 mg/dL Borderline high 150 - 199 mg/dL High 200 - 499 mg/dL Very High > or = 500 mg/dL WBC (Bld) [#/Vol] 4.1 10*3/uL 4.4-11.0 [facility] Bilirubin Test strip Ql (U)O rdered By: HEALTH ASSESSMENT on 06-10-2023 Bilirubin Ql (U) 1 mg/dL Negative [facility] Comment on above: COLOR OF URINE MAY A FFECT DIPSTICK RESULTS. Blood erythrocytes count (nu mber/volume)Ordered By: HEALTH ASSESSMENT on 06-10-2023 RBC (Bld) [#/Vol] 4.57 10*6/uL 4.2-5.4 [facility] Blood hemoglobin measurement (mass/volume)Ordered By: HEALTH ASSESSMENT on 06-10-2023 Hemoglobin (Bld) [Mass/Vol] 13.5 g/dL 12.0-15.0 [facility] Blood platelet mean volumeOr dered By: HEALTH ASSESSMENT on 06-10-2023 Platelet mean volume (Bld) [Entitic vol] 9.7 fL 6.2-12.0 [facility] Determination of erythrocyte mean corpuscular volume (MCV)Ordered By: HEALTH ASSESSMENT on 06-10-2023 MCV (RBC) [Entitic vol] 89.7 fL 81-99 [facility] Direct bilirubinOrdered By: HEALTH ASSESSMENT on 06-10-2023 Bilirubin.direct [Mass/Vol] 0.14 mg/dL 0.00-0.30 [facility] Hematocrit Auto (Bld) [Volum e fraction]Ordered By: HEALTH ASSESSMENT on 06-10-2023 Hematocrit (Bld) [Volume fraction] 41.0 % 37-47 [facility] Ketones Test strip Ql (U)Ord ered By: HEALTH ASSESSMENT on 06-10-2023 Ketones Ql (U) 15 mg/dl Negative [facility] - Chemistry and C hemistry - challengeOrdered By: HEALTH ASSESSMENT on 06-10-2023 ALP [Catalytic activity/Vol] 69 U/L 45-117 [facility] ALT [Catalytic activity/Vol] 21 U/L 13-56 [facility] Cholesterol.total/Choles terol in HDL [Mass ratio] 4.50 {ratio} [facility] CO2 [Moles/Vol] 23.0 mmol/L 21.0-32.0 [facility] Globulin (S) [Mass/Vol] 3.7 g/dL 2.2-4.2 [facility] Urea nitrogen/Creatinine [Mass ratio] 25.5 mg/mg 10-20 [facility] - Hematology and Cell countsOrdered By: HEALTH ASSESSMENT on 06-10-2023 Erythrocyte distribution width (RBC) [Entitic vol] 46.3 fL 35.1-43.9 [facility] Erythrocyte distribution width (RBC) [Ratio] 14.0 % 11.6-14.6 [facility] MCH (RBC) [Entitic mass] 29.5 pg 27.0-32.0 [facility] Nucleated RBC/100 WBC (Bld) [Ratio] 0 % 0-5 [facility] MCHC Auto (RBC) [Mass/Vol]Or dered By: HEALTH ASSESSMENT on 06-10-2023 MCHC (RBC) [Mass/Vol] 32.9 g/dL 32-36 [facility] Nitrite Test strip Ql (U)Ord ered By: HEALTH ASSESSMENT on 06-10-2023 Nitrite Ql (U) Negative Negative [facility] No Panel InformationOrdered By: HEALTH ASSESSMENT on 06-10-2023 Estimated GFR (MDRD) Amer 85 mL/min >60 [facility] Comment on above: GFR Calc Estimated GFR (MDRD) Non-Af Amer 70 mL/min >60 [facility] Comment on above: Non- GFR Calc Platelets bldOrdered By: ENRIQUETA [facility] ASSESSMENT on 06-10-2023 Platelets (Bld) [#/Vol] 271 10*3/uL 150-450 [facility] Protein Test strip Ql (U)Ord ered By: HEALTH ASSESSMENT on 06-10-2023 Protein Ql (U) 15 mg/dl Negative [facility] Segmented neutrophils/100 WB C Auto (Bld)Ordered By: HEALTH ASSESSMENT on 06-10-2023 Segmented neutrophils/100 WBC (Bld) 43.4 % 47-70 [facility] Serum or plasma albumin randy urement (mass/volume)Ordered By: HEALTH ASSESSMENT on 06-10-2023 Albumin [Mass/Vol] 3.8 g/dL 3.2-5.0 [facility] Serum or plasma albumin/glob ulin mass ratioOrdered By: HEALTH ASSESSMENT on 06-10-2023 Albumin/Globulin [Mass ratio] 1.0 {ratio} 0.9-2.4 [facility] Serum or plasma calcium randy urement (mass/volume)Ordered By: HEALTH ASSESSMENT on 06-10-2023 Calcium [Mass/Vol] 9.3 mg/dL 8.5-10.1 [facility] Serum or plasma cholesterol in HDL measurement (mass/volume)Ordered By: HEALTH ASSESSMENT on 06-10-2023 Cholesterol in HDL [Mass/Vol] 64 mg/dL >40 [facility] Comment on above: The drugs N-Acetylcy steine and Metamizole may falsely depress this assay. Reference Range HDL <40 mg/dL Low HDL Cholesterol HDL >or= 60 mg/dL High HDL Cholesterol Serum or plasma cholesterol in VLDL measurement (mass/volume)Ordered By: HEALTH ASSESSMENT on 06-10-2023 Cholesterol in VLDL [Mass/Vol] 15 mg/dL 5-40 [facility] Serum or plasma creatinine m easurement (mass/volume)Ordered By: HEALTH ASSESSMENT on 06-10-2023 Creatinine [Mass/Vol] 0.90 mg/dL 0.55-1.02 [facility] Comment on above: The validity of the calculated GFR & GFRAA in patients over 70 years has not been determined. Clinical correlation is essential. Serum or plasma low density lipoprotein (LDL) cholesterol measurement (mass/volume)Ordered By: HEALTH ASSESSMENT on 06-10-2023 Cholesterol in LDL [Mass/Vol] 210 mg/dL 0-130 [facility] Serum or plasma urea nitroge n measurement (mass/volume)Ordered By: HEALTH ASSESSMENT on 06-10-2023 Urea nitrogen [Mass/Vol] 23 mg/dL 7-18 [facility] Serum or plasma uric acid me asurement (mass/volume)Ordered By: HEALTH ASSESSMENT on 06-10-2023 Urate [Mass/Vol] 3.8 mg/dL 2.6-6.0 [facility] Comment on above: The drugs N-Acetylcy steine and Metamizole may falsely depress this assay. Thin prep Papanicolaou smear with manual screeningOrdered By: HEALTH ASSESSMENT on 06-10-2023 Thin prep Papanicolaou smear with manual screening 13 U/L 15-37 [facility] Thin prep Papanicolaou smear with manual screening 7 5-15 [facility] Urine blood detectionOrdered By: HEALTH ASSESSMENT on 06-10-2023 RBC Ql (U) 25 /ul Negative [facility] Urine clarityOrdered By: A [facility] ASSESSMENT on 06-10-2023 Clarity (U) Clear Clear [facility] Urine color determinationOrd ered By: HEALTH ASSESSMENT on 06-10-2023 Color (U) Yellow Yellow [facility] Urine glucose detectionOrder ed By: HEALTH ASSESSMENT on 06-10-2023 Glucose Ql (U) Normal mg/dl Normal [facility] Urine leukocyte esterase det ection by dipstickOrdered By: HEALTH ASSESSMENT on 06-10-2023 Leukocyte esterase Test strip Ql (U) Negative Negative [facility] Urine pHOrdered By: HEALTH A SSESSMENT on 06-10-2023 pH (U) 5.0 [pH] 5.0 - 8.0 [facility] Urine specific gravity measu rementOrdered By: HEALTH ASSESSMENT on 06-10-2023 Specific gravity (U) [Rel density] 1.025 1.002-1.030 [facility] Urobilinogen Auto test strip Ql (U)Ordered By: HEALTH ASSESSMENT on 06-10-2023 Urobilinogen Ql (U) Normal mg/dl Normal [facility] - Chemistry and C hemistry - challengeOrdered By: Helen Avilez on 04-29-2023 Free T4 [Mass/Vol] 0.72 ng/dL 0.76-1.46 [facility] No Panel InformationOrdered By: Helen Avilez on 04-29-2023 Free Triiodothyronine (T3) pg/dL 2.3 pg/mL 2.18-3.98 [facility] Thyroid Stimulating Hormone (TSH) 0.28 uIU/mL 0.358-3.74 [facility] [employer] [facility] Reporton 2022 [employer] [facility] Report . Pathology Reports Accession: Collected Date/Time: Received Date/Time: Pathologist: [id number] 02/10/2023 09:12 EDT 02/10/2023 18:00 EDT MD CHRIS RETANA [employer] [facility] Report SPECIMEN: Specimen Description: Liquid Prep w/ HPV Specimen: Cervical/Endocervical Screening or Diagnostic: Screening RELEVANT HISTORY: LMP: n/a Post Menopausal: Yes SPECIMEN ADEQUACY: SATISFACTORY FOR EVALUATION Endocervical/Transfor mational zone component present INTERPRETATION/RESULT S: NEGATIVE FOR INTRAEPITHELIAL LESION OR MALIGNANCY SUGGESTIONS/EDUCATION AL NOTES: This case has been reviewed for 10% QA rescreen HIGH RISK HPV TESTING: Event Code Result HPV Interp See Interp HPVN HPV Interp Text: High Risk HPV Typing: NEGATIVE HPV types 16, 18, 31, 33, 35, 39, 45, 51, 52, 56, 58, 59, 66 and 68 DNA were undetectable or below the pre-set threshold. The chandana High-Risk HPV DNA Test is not intended for use as a screening device for Pap normal women under age 30 and is not intended to substitute for regular Pap screening. The chandana High-Risk HPV DNA Test is designed to augment existing methods for the detection of cervical disease and should be used in conjunction with clinical information derived from other diagnostic and screening tests, physical examinations and full medical history in accordance with appropriate patient management procedures. NOTE: A negative result does not preclude the presence of HPV infection because results depend on adequate specimen collection, absence of inhibitors and sufficient DNA to be detected. As of: 02/16/23 14:34 EDT COMMENT: This Pap Test was successfully processed and evaluated with the assistance of the [employer] ThinPrep Test Imaging System. Pathology Reports Accession: Collected Date/Time: Received Date/Time: Pathologist: [id number] 02/10/2023 09:12 EDT 02/10/2023 18:00 MD CHRIS REYES Electronically Signed by Pathology report verified by [facility] Screened by: JEAN CARLOS Electronically signed by CHRIS RETANA MD Sign-Out Date: 02/16/2023 15:41 Performing Lab: [facility], [address] [place] [address] Pathology Dept Disclaimer The Pap test is a screening test for cervical cancer. As evidenced by published data, it is subject to both inherent false negative and false positive results. Your patient's results should be interpreted in context with pertinent clinical history including gynecological examination. Normal [facility] [place] HPVon 02-16-2023 HPV Interp Normal See Interp HPVN [facility] [place] Comment on above: Order Comment: Order placed by AP_HPV_ORDER rule from [id number] Result Comment: High Risk HPV Typing: NEGATIVE HPV types 16, 18, 31, 33, 35, 39, 45, 51, 52, 56, 58, 59, 66 and 68 DNA were undetectable or below the pre-set threshold. The chandana High-Risk HPV DNA Test is not intended for use as a screening device for Pap normal women under age 30 and is not intended to substitute for regular Pap screening. The chandana High-Risk HPV DNA Test is designed to augment existing methods for the detection of cervical disease and should be used in conjunction with clinical information derived from other diagnostic and screening tests, physical examinations and full medical history in accordance with appropriate patient management procedures. NOTE: A negative result does not preclude the presence of HPV infection because results depend on adequate specimen collection, absence of inhibitors and sufficient DNA to be detected. See Inter HPVN Performed By: #### H PV #### [place] [address] HPV Source Cervix Normal [facility] Comment on above: Order Comment: Order placed by AP_HPV_ORDER rule from [id number] Performed By: #### H PV #### [place] [id number] CNOVon 10-20-2022 CNOV Office Visit ([facility] ) ESTRELLITA GARCIA ([id number]) 1970 F Date Time Provider Department 10/20/22 4:15 PM AMBREEN CHAPARRO [facility] During your visit today, we recorded the following information about you: Temperature Pulse Respiration Blood pressure 99.1 degrees 88/minute 18/minute 128/80 Weight 89.4 kg Ambreen Chaparro PA-C 10/20/2022 5:21 PM Signed This note was created using [employer]. Subjective Estrellita Garcia is a 52 year old female. HPI Patient presents with cough congestion sore throat and hoarse voice. This started 10 days ago. She states that started with a few days of a sore throat and then she lost her voice a few days after. She has had a cough over the past 3 to 4 days. She had a negative COVID and strep test [facility] . She does not really feel any better at this point and has had luck with steroids in the past helping so wanted a prescription for this. She has used [id number] cold medications with minimal relief. She has had low-grade temps in the . Review of Systems HENT: Positive for congestion, sore throat and voice change. Respiratory: Positive for cough. Negative for shortness of breath. Cardiovascular: Negative. Gastrointestinal: Negative. Genitourinary: Negative. Musculoskeletal: Negative. Neurological: Positive for headaches. All other systems reviewed and are negative. PAST MEDICAL HISTORY Diagnosis Date Internal hemorrhoids without mention of complication Other and unspecified ovarian cyst Ovarian cyst PMH - PAST MEDICAL HISTORY OF GENITAL WARTS Unspecified constipation Unspecified hypothyroidism Hypothyroidism Current Outpatient Medications Medication Sig Dispense Refill ascorbic acid, vitamin C, 500 mg cap Take by mouth. Biotin 2,500 mcg cap Take 2,500 mcg by mouth. dextroamphetamine-amp hetamine (ADDERALL) 20 mg tablet Take 20 mg by mouth once daily. venlafaxine ER (EFFEXOR XR) 37.5 mg 24 hr capsule ARMOUR THYROID 90 mg tablet benzonatate (TESSALON PERLES) 100 mg capsule Take 2 capsules by mouth three times daily as needed. 30 capsule 0 predniSONE (DELTASONE) 20 mg tablet Take 2 tablets by mouth once daily for 5 days. 10 tablet 0 levothyroxine (SYNTHROID) 150 mcg tablet Take 150 mcg by mouth daily before breakfast. (Patient not taking: Reported on 10/20/2022) citalopram (CELEXA) 20 mg tablet daily (Patient not taking: Reported on 10/20/2022) 0 omeprazole(PRILOSEC 20 MG CAP) Take one(1) capsule daily. (Patient not taking: Reported on 10/20/2022) 0 0 naproxen sodium(ANAPROX DS 550 MG TAB) Take one(1) tablet twelve(12) hours as needed for pain. (Patient not taking: Reported on 10/20/2022) 30 1 DENAVIR 1 % TOPICAL CREAM Apply every 2 hrs while awake for 5 days (Patient not taking: Reported on 10/20/2022) 1 2 No current facility-administered medications for this visit. PAST SURGICAL HISTORY Procedure Laterality Date ANESTHESIA HERNIA REPAIR LOWER ABDOMEN NOS BUNION SHIELD, PULLOVER COLONOSCOPY FLX DX W/COLLJ SPEC WHEN PFRMD 08/17/05 Colonoscopy LIG/TRNSXJ FLP TUBE ABDL/VAG APPR UNI/BI Tubal ligation OOPHORECTOMY PARTIAL/TOTAL UNI/BI of the right ovary TONSILLECTOMY PRIMARY/SECONDARY Tonsillectomy FAMILY HISTORY Problem Relation Age of Onset Coronary Artery Disease Mother Colon Cancer Paternal Grandfather other (stomach problems [Other]) Father can't have foods with gluttens in them. Social History Tobacco Use Smoking status: Former Types: Cigarettes Start date: 01/23/2013 Tobacco comments: 2-6 cig per day Substance Use Topics Alcohol use: No Drug use: No Objective BP 128/80 Pulse 88 Temp 37.3 ?C (99.1 ?F) (Tympanic) Resp 18 Wt 89.4 kg (197 lb) LMP 12/26/2013 SpO2 96% Physical Exam Vitals reviewed. Constitutional: Appearance: Normal appearance. HENT: Head: Normocephalic and atraumatic. Right Ear: Tympanic membrane, ear canal and external ear normal. Left Ear: Tympanic membrane, ear canal and external ear normal. Nose: Congestion present. Mouth/Throat: Mouth: Mucous membranes are moist. Pharynx: Oropharynx is clear. Cardiovascular: Rate and Rhythm: Normal rate and regular rhythm. Heart sounds: Normal heart sounds. Pulmonary: Effort: Pulmonary effort is normal. Breath sounds: Normal breath sounds. No wheezing, rhonchi or rales. Comments: Hoarse voice Skin: General: Skin is warm and dry. Neurological: Mental Status: She is alert. Assessment and Plan ASSESSMENT/PLAN: 1. Bronchitis - ICD9: 490, ICD10: J40 Likely viral bronchitis. Discussed if she were to spike a fever over the next few days her cough worsens would recommend being reevaluated. Prednisone and Tessalon sent. Ambreen Chaparro PA-C Allergies As of Date: 10/20/2022 Noted Allergy Reaction PENICILLIN G 01/13/2014 7 - Swelling Comments: lips Date Reviewed: 10/20/2022 R (more content not included)... Normal [facility] Absolute lymphocyte counton 06-30-2022 Lymphocytes Auto (Unsp spec) [#/Vol] 1.65 10*3/uL 0.83-4.51 [facility] Work Phone: Absolute reticulocyte counto n 06-30-2022 Reticulocytes (Bld) [#/Vol] 0.00 10*3/uL 0-5 [facility] Work Phone: Basophil percentageon 2021 Basophil percentage 4.0 mg/dL 2.5-4.9 [facility] Work Phone: Bilirubin [Mass/Vol] 0.30 mg/dL 0.20-1.00 [facility] Work Phone: Comment on above: For patients on eltr ombopag therapy, use of Dimension [place] TBIL is not recommended. Chloride [Moles/Vol] 106 mmol/L 98-107 [facility] Work Phone: Cholesterol [Mass/Vol] 188 mg/dL <200 [facility] Work Phone: Comment on above: <200 mg/dL Desirable 200-240 mg/dL Borderline >240 mg/dL High Risk Glucose [Mass/Vol] 101 mg/dL 74-106 [facility] Work Phone: Comment on above: Fasting Glucose resu lt from 100 to 125 mg/dL suggests IMPAIRED HOMEOSTASIS per A.D.A. criteria. Neutrophils (Bld) [#/Vol] 1.9 10*3/uL 2.0-7.7 [facility] Work Phone: Potassium [Moles/Vol] 4.3 mmol/L 3.5-5.1 [facility] Work Phone: Protein [Mass/Vol] 7.0 g/dL 6.4-8.2 [facility] Work Phone: Sodium [Moles/Vol] 142 mmol/L 136-145 [facility] Work Phone: Triglyceride [Mass/Vol] 69 mg/dL <199 [facility] Work Phone: Comment on above: The drugs N-Acetylcy steine and Metamizole may falsely depress this assay.Serum Triglycerides Reference Interval Normal <150 mg/dL Borderline high 150 - 199 mg/dL High 200 - 499 mg/dL Very High > or = 500 mg/dL WBC (Bld) [#/Vol] 4.2 10*3/uL 4.4-11.0 [facility] Work Phone: Blood erythrocytes count (nu mber/volume)on 06-30-2022 RBC (Bld) [#/Vol] 4.29 10*6/uL 4.2-5.4 [facility] Work Phone: Blood hemoglobin measurement (mass/volume)on 06-30-2022 Hemoglobin (Bld) [Mass/Vol] 12.8 g/dL 12.0-15.0 [facility] Work Phone: Blood platelet mean volumeon 06-30-2022 Platelet mean volume (Bld) [Entitic vol] 9.6 fL 6.2-12.0 [facility] Work Phone: Determination of erythrocyte mean corpuscular volume (MCV)on 06-30-2022 MCV (RBC) [Entitic vol] 91.1 fL 81-99 [facility] Work Phone: Direct bilirubinon 2 Bilirubin.direct [Mass/Vol] 0.07 mg/dL 0.00-0.30 [facility] Work Phone: Hematocrit Auto (Bld) [Volum e fraction]on 06-30-2022 Hematocrit (Bld) [Volume fraction] 39.1 % 37-47 [facility] Work Phone: Laboratory - Chemistry and C hemistry - challengeon 06-30-2022 ALP [Catalytic activity/Vol] 52 U/L 45-117 [facility] Work Phone: ALT [Catalytic activity/Vol] 21 U/L 13-56 [facility] Work Phone: Cholesterol.total/Choles terol in HDL [Mass ratio] 2.80 {ratio} [facility] Work Phone: CO2 [Moles/Vol] 28.0 mmol/L 21.0-32.0 [facility] Work Phone: Globulin (S) [Mass/Vol] 3.4 g/dL 2.2-4.2 [facility] Work Phone: Urea nitrogen/Creatinine [Mass ratio] 22.5 mg/mg 10-20 [facility] Work Phone: Free T4 [Mass/Vol] 0.58 ng/dL 0.76-1.46 [facility] Work Phone: [phone] Laboratory - Hematology and Cell countson 06-30-2022 Erythrocyte distribution width (RBC) [Entitic vol] 40.4 fL 35.1-43.9 [facility] Work Phone: Erythrocyte distribution width (RBC) [Ratio] 12.1 % 11.6-14.6 [facility] Work Phone: MCH (RBC) [Entitic mass] 29.8 pg 27.0-32.0 [facility] Work Phone: Nucleated RBC/100 WBC (Bld) [Ratio] 0 % 0-5 [facility] Work Phone: MCHC Auto (RBC) [Mass/Vol]on 06-30-2022 MCHC (RBC) [Mass/Vol] 32.7 g/dL 32-36 [facility] Work Phone: No Panel Informationon 06-30 Estimated GFR (MDRD) Amer 81 mL/min >60 [facility] Work Phone: Comment on above: GFR Calc Estimated GFR (MDRD) Non-Af Amer 67 mL/min >60 [facility] Work Phone: Comment on above: Non- GFR Calc Free Triiodothyronine (T3) pg/dL 2.9 pg/mL 2.18-3.98 [facility] Work Phone: Thyroid Stimulating Hormone (TSH) 0.48 uIU/mL 0.358-3.74 [facility] Work Phone: Platelets bldon 06-30-2022 Platelets (Bld) [#/Vol] 281 10*3/uL 150-450 [facility] Work Phone: Segmented neutrophils/100 WB C Auto (Bld)on 06-30-2022 Segmented neutrophils/100 WBC (Bld) 44.5 % 47-70 [facility] Work Phone: Serum or plasma albumin randy urement (mass/volume)on 06-30-2022 Albumin [Mass/Vol] 3.6 g/dL 3.2-5.0 [facility] Work Phone: Serum or plasma albumin/glob ulin mass ratioon 06-30-2022 Albumin/Globulin [Mass ratio] 1.1 {ratio} 0.9-2.4 [facility] Work Phone: Serum or plasma calcium randy urement (mass/volume)on 06-30-2022 Calcium [Mass/Vol] 8.9 mg/dL 8.5-10.1 [facility] Work Phone: Serum or plasma cholesterol in HDL measurement (mass/volume)on 06-30-2022 Cholesterol in HDL [Mass/Vol] 68 mg/dL >40 [facility] Work Phone: Comment on above: The drugs N-Acetylcy steine and Metamizole may falsely depress this assay. Reference Range HDL <40 mg/dL Low HDL Cholesterol HDL >or= 60 mg/dL High HDL Cholesterol Serum or plasma cholesterol in VLDL measurement (mass/volume)on 06-30-2022 Cholesterol in VLDL [Mass/Vol] 14 mg/dL 5-40 [facility] Work Phone: Serum or plasma creatinine m easurement (mass/volume)on 06-30-2022 Creatinine [Mass/Vol] 0.94 mg/dL 0.55-1.02 [facility] Work Phone: Comment on above: The validity of the calculated GFR & GFRAA in patients over 70 years has not been determined. Clinical correlation is essential. Serum or plasma low density lipoprotein (LDL) cholesterol measurement (mass/volume)on 06-30-2022 Cholesterol in LDL [Mass/Vol] 106 mg/dL 0-130 [facility] Work Phone: Serum or plasma urea nitroge n measurement (mass/volume)on 06-30-2022 Urea nitrogen [Mass/Vol] 21 mg/dL 7-18 [facility] Work Phone: Serum or plasma uric acid me asurement (mass/volume)on 06-30-2022 Urate [Mass/Vol] 4.1 mg/dL 2.6-6.0 [facility] Work Phone: Comment on above: The drugs N-Acetylcy steine and Metamizole may falsely depress this assay. Thin prep Papanicolaou smear with manual screeningon 06-30-2022 Thin prep Papanicolaou smear with manual screening 13 U/L 15-37 [facility] Work Phone: Thin prep Papanicolaou smear with manual screening 8 5-15 [facility] Work Phone: Thin prep Papanicolaou smear with manual screening 159 U/L 84-246 [facility] Work Phone: Laboratory - Microbiology an d Antimicrobial susceptibilityon 05-23-2022 SARS-CoV-2 (COVID-19) RNA REID+probe Ql (Unsp spec) Detected [facility] Work Phone: No Panel Informationon 05-23 Influenza Types A,B Rapid (Clinic) Not detected [facility] Work Phone: Laboratory - Microbiology an d Antimicrobial susceptibilityon 03-03-2022 SARS-CoV-2 (COVID-19) RNA REID+probe Ql (Unsp spec) Not detected [facility] Work Phone: No Panel Informationon 03-03 Influenza Types A,B Rapid (Clinic) Not detected [facility] Work Phone: NOVEL CORONAVIRUS NASOPHARYN GEAL - [facility] SPECIMEN ONLYon 11-26-2020 SARS-CoV-2 (COVID-19) RNA REID+probe Ql (Unsp spec) Not detected Normal NOT DETECTED [facility] Comment on above: Order Comment: Submi tter Name: [facility] Agent Suspected: SARS-COV-2 This test was performed using real time PCR and has been approved for the qualitative detection of SARS-CoV-2 nucleic acid. The test has been authorized by the FDA under an emergency use authorization for use by authorized laboratories. Result Comment: Nega tive results do not preclude SARS-CoV-2 infection and should not be used as the sole basis for treatment or other patient management decisions. Optimum specimen types and timing for peak viral levels during infections caused by SARS-CoV-2 has not been determined. The possibility of a false negative result should especially be considered if the patient's recent exposures or clinical presentation suggest that SARS-CoV-2 infection is probable, and diagnostic tests for other causes of illness (e.g., other respiratory illness) are negative. Collection of a new specimen and re-testing may be necessary if the patient is critically ill or clinically deteriorating. Performed By: #### L [id number] #### [facility] (DEFAULT) [address] [place] [id number] Vital Signs Date Time Vital Sign Value Performing Clinician Facility 01-24-2025 09:33-0400 Body height 170.[address] Helen Avilez DO Work Phone: [facility] 01-24-2025 09:33-0400 Body mass index (BMI) [Ratio] 29.9 kg/m2 Dr. Helen Avilez DO Work Phone: [facility] 01-24-2025 09:33-0400 Body temperature 98 [degF] Dr. Helen Avilez DO Work Phone: [facility] 01-24-2025 09:33-0400 Body weight 86.[address] Helen Avilez DO Work Phone: [facility] 01-24-2025 09:33-0400 Diastolic blood pressure 66 mm[Hg] Dr. Helen Avilez DO Work Phone: [facility] 01-24-2025 09:33-0400 Heart rate 76 /min Dr. Helen Avilez DO Work Phone: [facility] 01-24-2025 09:33-0400 SaO2% (BldA) [Mass fraction] 98 % Dr. Helen Avilez DO Work Phone: [facility] 01-24-2025 09:33-0400 Systolic blood pressure 102 mm[Hg] Dr. Helen Avilez DO Work Phone: [facility] 01-25-2024 12:04-0400 Body height 170.[address] Helen Avilez Work Phone: [facility] 01-25-2024 12:04-0400 Body mass index (BMI) [Ratio] 33.4 kg/m2 Dr. Helen Avilez Work Phone: [facility] 01-25-2024 12:04-0400 Body temperature 98.2 [degF] Dr. Helen Avilez Work Phone: [facility] 01-25-2024 12:04-0400 Body weight 96.[address] Helen Avilez Work Phone: [facility] 01-25-2024 12:04-0400 Diastolic blood pressure 73 mm[Hg] Dr. Helen Avilez Work Phone: [facility] 01-25-2024 12:04-0400 Heart rate 66 /min Dr. Helen Avilez Work Phone: [facility] 01-25-2024 12:04-0400 Respiratory rate 16 /min Dr. Helen Avilez Work Phone: [facility] 01-25-2024 12:04-0400 SaO2% (BldA) [Mass fraction] 97 % Dr. Helen Avilez Work Phone: [facility] 01-25-2024 12:04-0400 Systolic blood pressure 118 mm[Hg] Dr. Helen Avilez Work Phone: [facility] 11-01-2023 09:20-0500 Body height 170.[address] Helen Avilez Work Phone: [facility] 11-01-2023 09:20-0500 Body mass index (BMI) [Ratio] 31.3 kg/m2 Dr. Helen Avilez Work Phone: [facility] 11-01-2023 09:20-0500 Body temperature 98.7 [degF] Dr. Helen Avilez Work Phone: [facility] 11-01-2023 09:20-0500 Body weight 90.[address] Helen Avilez Work Phone: [facility] 11-01-2023 09:20-0500 Diastolic blood pressure 102 mm[Hg] Dr. Helen Avilez Work Phone: [facility] 11-01-2023 09:20-0500 Heart rate 119 /min Dr. Helen Avilez Work Phone: [facility] 11-01-2023 09:20-0500 Respiratory rate 16 /min Dr. Helen Avilez Work Phone: [facility] 11-01-2023 09:20-0500 SaO2% (BldA) [Mass fraction] 98 % Dr. Helen Avilez Work Phone: [facility] 11-01-2023 09:20-0500 Systolic blood pressure 142 mm[Hg] Dr. Helen Avilez Work Phone: [facility] 10-20-2022 16:21-0500 Body temperature 99.1 [degF] Ambreen Athy PA-C Work Phone: [facility] 10-20-2022 16:21-0500 Body weight 89.36 kg Ambreen Athy PA-C Work Phone: [facility] 10-20-2022 16:21-0500 Diastolic blood pressure 80 mm[Hg] Ambreen Athy PA-C Work Phone: [facility] 10-20-2022 16:21-0500 Heart rate 88 /min Ambreen Athy PA-C Work Phone: [facility] 10-20-2022 16:21-0500 Respiratory rate 18 /min Ambreen Athy PA-C Work Phone: [facility] 10-20-2022 16:21-0500 SaO2% (BldA) [Mass fraction] 96 % Ambreen Athy PA-C Work Phone: [facility] 10-20-2022 16:21-0500 Systolic blood pressure 128 mm[Hg] Ambreen Athy PA-C Work Phone: [facility] 10-13-2022 07:56-0500 Body temperature 100.1 [degF] Dr. Helen Avilez Work Phone: [facility] Work Phone: 10-13-2022 07:56-0500 Diastolic blood pressure 74 mm[Hg] Dr. Helen Avilez Work Phone: [facility] Work Phone: 10-13-2022 07:56-0500 Heart rate 97 /min Dr. Helen Avilez Work Phone: [facility] Work Phone: 10-13-2022 07:56-0500 Respiratory rate 16 /min Dr. Helen Avilez Work Phone: [facility] Work Phone: 10-13-2022 07:56-0500 SaO2% (BldA) [Mass fraction] 98 % Dr. Helen Avilez Work Phone: [facility] Work Phone: 10-13-2022 07:56-0500 Systolic blood pressure 124 mm[Hg] Dr. Helen Avilez Work Phone: [facility] Work Phone: 05-23-2022 13:30-0400 Body temperature 98.4 [degF] Dr. Helen Avilez Work Phone: [facility] Work Phone: 05-23-2022 13:30-0400 Diastolic blood pressure 80 mm[Hg] Dr. Helen Avilez Work Phone: [facility] Work Phone: 05-23-2022 13:30-0400 Heart rate 79 /min Dr. Helen Avilez Work Phone: [facility] Work Phone: 05-23-2022 13:30-0400 Respiratory rate 14 /min Dr. Helen Avilez Work Phone: [facility] Work Phone: 05-23-2022 13:30-0400 SaO2% (BldA) [Mass fraction] 99 % Dr. Helen Avilez Work Phone: [facility] Work Phone: 05-23-2022 13:30-0400 Systolic blood pressure 120 mm[Hg] Dr. Helen Avilez Work Phone: [facility] Work Phone: 03-26-2022 08:47-0400 Body temperature 98.4 [degF] Dr. Helen Avilez Work Phone: [facility] Work Phone: 03-26-2022 08:47-0400 Diastolic blood pressure 74 mm[Hg] Dr. Helen Avilez Work Phone: [facility] Work Phone: 03-26-2022 08:47-0400 Heart rate 86 /min Dr. Helen Avilez Work Phone: [facility] Work Phone: 03-26-2022 08:47-0400 Respiratory rate 14 /min Dr. Helen Avilez Work Phone: [facility] Work Phone: 03-26-2022 08:47-0400 SaO2% (BldA) [Mass fraction] 98 % Dr. Helen Avilez Work Phone: [facility] Work Phone: 03-26-2022 08:47-0400 Systolic blood pressure 116 mm[Hg] Dr. Helen Avilez Work Phone: [facility] Work Phone: 03-03-2022 10:55-0400 Body height 170.[address] Helen Avilez Work Phone: [facility] Work Phone: 03-02-2022 09:54-0400 Body mass index (BMI) [Ratio] 29.2 kg/m2 Dr. Helen Avilez Work Phone: [facility] Work Phone: 03-02-2022 09:54-0400 Body weight 84.[address] Helen Avilez Work Phone: [facility] Work Phone: 03-02-2022 09:54-0400 Diastolic blood pressure 73 mm[Hg] Dr. Helen Avilez Work Phone: [facility] Work Phone: 03-02-2022 09:54-0400 Respiratory rate 18 /min Dr. Helen Avilez Work Phone: [facility] Work Phone: 03-02-2022 09:54-0400 Systolic blood pressure 122 mm[Hg] Dr. Helen Avilez Work Phone: [facility] Work Phone: Encounters Encounter Date Encounter Type Care Provider Facility Start: 07-31-2025 ambulatory Tamia Still NP Facil ity:[facility] Start: 03-26-2025 End: 03-26-[address] Helen Avilez DO Work Phone: [facility] Work Phone: Start: 03-26-2025 End: 03-26-2025 Patient encounter procedure Myriam Liu [employer] -[facility]patient [facility] Work Phone: Start: 03-26-2025 End: 03-26-2025 ambulatory Myriam Liu Facility:[facility] Start: 03-13-2025 End: 03-13-2025 Patient encounter procedure Argenis WHEELER -[facility] Work Phone: Start: 03-13-2025 End: 03-13-[address] Helen Avilez DO Work Phone: [facility] Work Phone: Start: 02-27-2025 End: 02-27-[address] Helen Avilez DO Work Phone: [facility] Work Phone: Start: 02-27-2025 End: 02-27-2025 Patient encounter procedure Myriam Liu [employer]STMENT [employer]ER[employer] -Ultrasound, [facility] Work Phone: Start: 02-27-2025 End: 02-27-2025 ambulatory Myriam Liu Facility:[facility] Start: 02-16-2025 End: 02-16-[address] Helen Avilez DO -Laboratory Work Phone: Start: 02-16-2025 End: 02-16-2025 [facility] Start: 02-01-2025 Registered [facility] -Laboratory Work Phone: Start: 02-01-2025 ambulatory Helen Avilez Facility:[facility] Start: 01-24-2025 End: 01-24-2025 Patient encounter procedure Garrick Neves [facility] -[facility] Work Phone: Start: 01-24-2025 End: 01-24-[address] Helen Avilez DO Work Phone: [facility] Work Phone: Start: 01-24-2025 End: 01-24-2025 [facility] Start: 09-26-2024 End: 09-26-2024 ambulatory Argenis Yaoov Facility:[facility] Start: 07-25-2024 End: 07-25-2024 ambulatory Tamia Cheko [employer]MENT [employer]ER Facility:[facility] Start: 07-25-2024 End: 07-25-2024 ambulatory Tamia Cheko INVE[employer]MENT BROKER Facility:[facility] Start: 01-25-2024 End: 01-25-[address] Helen Avilez Work Phone: [facility] Work Phone: Start: 01-25-2024 End: 01-25-[address] Helen Avilez Work Phone: [facility] Work Phone: Start: 11-10-2023 End: 11-10-[address] Helen Avilez Work Phone: [facility] Work Phone: Start: 11-10-2023 End: 11-10-[address] Helen Avilez Work Phone: [facility]-Laboratory Work Phone: Start: 11-01-2023 End: 11-01-[address] Helen Avilez Work Phone: [facility] Work Phone: Start: 08-30-2023 End: 08-30-2023 ambulatory [facility] Work Phone: Start: 08-30-2023 End: 08-30-2023 Patient encounter procedure [facility]-Laboratory, Fer Metz [facility] Start: 06-10-2023 Registered [facility]erred [facility] Work Phone: Start: 04-29-2023 End: 04-29-2023 ambulatory [facility] Work Phone: Start: 04-29-2023 End: 04-29-2023 Patient encounter procedure [facility]-Laboratory Work Phone: Start: 03-18-2023 End: 03-18-2023 ambulatory [facility] Work Phone: Start: 03-18-2023 End: 03-18-2023 Patient encounter procedure [facility]-Outpatient Breast Imaging Work Phone: Start: 02-10-2023 End: 02-15-2023 ambulatory MYRIAM LIU APRN-[employer] Facility:B Start: 02-10-2023 End: 02-15-2023 Encounter for gynecological examination (general) (routine) without abnormal findings MYRIAM LIU APRN-[employer] Facility:[facility] Start: 02-10-2023 End: 02-14-2023 Outreach Lab MYRIAM JACOBS [facility] Start: 10-21-2022 End: 10-21-[address] Helen Avilez Work Phone: [facility] Work Phone: Start: 10-21-2022 End: 10-21-[address] Helen Avilez Work Phone: [facility] Start: 10-20-2022 End: 10-20-2022 ambulatory BRADY SHEA Facility:[facility] Start: 10-20-2022 End: 10-20-2022 Patient encounter procedure Ambreen Chaparro PA-C Work Phone: [facility] Comment on above: Bronchitis (Primary Dx) Start: 10-13-2022 End: 10-13-[address] Helen Avilez Work Phone: [facility] Start: 09-11-2022 Non-patient / Non-visit Dr. Matilde Avilez Work Phone: [facility] Start: 09-11-2022 End: 09-11-[address] Helen Avilez Work Phone: [facility] Work Phone: Start: 09-11-2022 End: 09-11-[address] Helen Avilez Work Phone: [facility] Start: 08-31-2022 End: 08-31-[address] Helen Avilez Work Phone: [facility] Start: 08-26-2022 End: 08-26-[address] Helen Avilez Work Phone: [facility] Work Phone: Start: 08-26-2022 End: 08-26-[address] Helen Avilez Work Phone: [facility]patient Breast Imaging Start: 06-30-[address] Helen vo Work Phone: [facility] Start: 06-30-2022 End: 06-30-[address] Helen Avilez Work Phone: [facility] Work Phone: Start: 06-30-2022 End: 06-30-[address] Helen Avilez Work Phone: [facility]-Laboratory Start: 05-23-2022 End: 05-23-[address] Helen Avilez Work Phone: [facility] Start: 03-26-2022 End: 03-26-[address] Helen Avilez Work Phone: [facility] Start: 03-16-2022 End: 03-16-[address] Helen Avilez Work Phone: [facility] Start: 03-05-2022 End: 03-05-[address] Helen Avilez Work Phone: [facility] Start: 03-03-2022 End: 03-03-[address] Helen Avilez Work Phone: [facility] Start: 03-02-2022 End: 03-02-[address] Helen Avilez Work Phone: [facility] Start: 02-23-2022 End: 02-23-[address] Helen Avilez Work Phone: [facility]patient [facility] Start: 02-16-2022 End: 02-16-[address] Helen Avilez Work Phone: [facility] Procedures Date Procedure Procedure Detail Performing Clinician Start: 03-26-2025 Screening mammography Tika Avilez DO Work Phone: Start: 02-27-[address] Sin Avilez DO Work Phone: Start: 02-01-2025 Serum inorganic phos phate measurement Dr. Helen Avilez DO Work Phone: Start: 01-24-2025 X-ray of chest, PA a nd lateral views Dr. Helen Avilez DO Work Phone: Start: 01-25-[address] Helen vo Work Phone: Start: 03-18-2023 Screening mammography Start: 03-18-2023 Ultrasonography of breast Start: 10-21-2022 MRI of joint of lowe r extremity Dr. Helen Avilez Work Phone: Start: 09-11-2022 Ultrasonography guid ed biopsy of breast Dr. Helen Avilez Work Phone: Start: 08-26-[address] Helen vo Work Phone: Start: 08-26-[address] Helen Avilez Work Phone: Start: 03-16-2022 MRI of bilateral danie asts with contrast Dr. Helen Avilez Work Phone: Start: 02-23-[address] Helen vo Work Phone: Start: 02-23-[address] Helen Avilez Work Phone: Start: 02-16-2022 Screening mammography D r. Helen Avilez Work Phone: Start: 09-25-2016 Dilation and curettage MYRIAM LIU [employer] Start: 09-25-2016 Hysteroscopy MYRIAM HAREAMY DAWSON [employer] Destructive procedure MYRIAMMILLIE LIU STEEL DETAILER[employer] Entire heart (body structure) MYRIAM LIU STEEL DETAILER[employer] Comment on above: CATHERIZATION 2008 D ONE DUE TO FAMILY HISTORY OF MOTHER Hernia repair MYRIAM LIU STEEL DETAILER[employer] Comment on above: UMBILICAL 1987 Lens of eye (body structure) MYRIAM LIU STEEL DETAILER[employer] Comment on above: lensectomy Ligation of fallopian tube S ENRRIQUE LIU STEEL DETAILER-[employer] Comment on above: 1995 Oophorectomy MYRIAM LIU STEEL DETAILER-[employer] Comment on above: RIGHT 1998 Tonsillectomy and adenoidectomy MYRIAM LIU STEEL DETAILER-[employer] Comment on above: 1984 Plan of Treatment Date Care Activity Detail Author Start: 09-11-2022 Bx breast w/device 1st lesion ultrasound guid BX BREAST 1ST LESION US IMAG [facility] Work Phone: Start: 06-25-2022 Influenza vaccination INFLUENZA (#1) [facility] Start: 10-25-2021 DEPRESSION ASSESSMENT DEPRESSION ASSESSMENT [facility] Start: 2021 SHINGRIX VACCINE (1 of 2) SHINGRIX VACCINE (1 of 2) [facility] Start: 2016 COLOGUARD (FIT-DNA) COLOGUARD (FIT-DNA) [facility] Start: 2016 Colonoscopy COLONOSCOPY [facility] Start: 2016 COLORECTAL CANCER SCREENING COLORECTAL CANCER SCREENING [facility] Start: [address] COLONOGRAPHY [facility] Start: 2016 DIABETES SCREEN DIABETES SCREEN [facility] Start: 2016 FECAL OCCULT BLOOD FECAL OCCULT BLOOD [facility] Start: 2016 LIPID SCREEN LIPID SCREEN [facility] Start: 2016 SIGMOIDOSCOPY SIGMOIDOSCOPY [facility] Start: 08-06-2013 HPV TESTING HPV TESTING [facility] Start: 08-06-2013 PAP TESTING PAP TESTING [facility] Start: 2011 Mammography MAMMOGRAM [facility] Start: 1990 Urine microalbumin profile DTAP,TDAP,TD (1 - Tdap) [facility] Start: 1989 ANNUAL PCP TEAM CHRONIC DISEASE VISIT ANNUAL PCP TEAM CHRONIC DISEASE VISIT [facility] Start: 1989 HEPATITIS C SCREENING HEPATITIS C SCREENING [facility] Start: 1989 HIV SCREENING HIV SCREENING [facility] Start: 03-10-1972 COVID-19 VACCINE (#1) COVID-19 VACCINE (#1) [facility] Start: 1971 HEPATITIS B (1 of 3 - 3-dose series) HEPATITIS B (1 of 3 - 3-dose series) [facility] Patient Education RAD RN Ultraso und Breast Biopsy Discharge Instructions [facility] Work Phone: Patient referral [facility] Work Phone: Immunizations Immunization Date Immunization Notes Care Provider Fa cili 08-01-2021 influenza, injectabl e, quadrivalent, preservative free [facility] 08-01-2021 influenza, seasonal, injectable Dr. Helen Avilez Work Phone: [facility] 07-21-2020 influenza, injectabl e, quadrivalent, preservative free [facility] 07-21-2020 influenza, seasonal, injectable Dr. Helen Avilez Work Phone: [facility] 08-08-2019 influenza, injectabl e, quadrivalent, preservative free [facility] 08-08-2019 influenza, seasonal, injectable Dr. Helen Avilez Work Phone: [facility] 08-03-2018 influenza, injectabl e, quadrivalent, preservative free [facility] 08-03-2018 influenza, seasonal, injectable Dr. Helen Avilez Work Phone: [facility] 07-30-2017 influenza, injectabl e, quadrivalent, preservative free [facility] 07-30-2017 influenza, seasonal, injectable Dr. Helen Avilez Work Phone: [facility] 08-24-2016 influenza, injectabl e, quadrivalent, preservative free [facility] 08-24-2016 influenza, seasonal, injectable Dr. Helen Avilez Work Phone: [facility] 08-20-2015 influenza, injectabl e, quadrivalent, preservative free [facility] 08-20-2015 influenza, seasonal, injectable Dr. Helen Avilez Work Phone: [facility] 07-18-2014 influenza, injectabl e, quadrivalent, preservative free [facility] 07-18-2014 influenza, seasonal, injectable Dr. Helen Avilez Work Phone: [facility] Payers Date Payer Category Payer Self-pay [id number] 2023 Unknown [id number] 2022 Unknown [id number] 2022 Unknown MMO MMO TPA [id number] 2022-Present [address] [place] [address] PPO [id number] 2015 Unknown [id number] 1971 Unknown [id number] Unknown [id number] Unknown [id number] Unknown [id number] Unknown [id number] Unknown [id number] Unknown [id number] Unknown [id number] Unknown [id number] Unknown [id number] Unknown [id number] Unknown [id number] Unknown [id number] Unknown [id number] Social History Date Type Detail Facility Start: 03-03-2022 End: 01-25-2024 Tobacco smoking status [facility] Unknown if ever smoked [facility] Start: 09-12-2020 None [facility] Start: 09-12-2020 Spouse/ Signif icant Other [facility] Start: 1970 Sex Assigned At Female C [facility] Start: 10-20-2022 End: 07-25-2024 Tobacco smoking status WAIS Ex-smoker [facility] Start: 01-23-2013 History of tobacco use Current smoker [facility] Start: 01-23-2013 History of tobacco use Cigarette Smoker [facility] Start: 10-20-2022 Alcohol intake Current non-dr dyer and 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 alcohol (finding) [facility] Start: 10-20-2022 Tobacco Comment 2-6 cig per day [facility] Start: 01-30-2025 Sex Female (finding) [facility] Clinical Notes 08-06-2005 to 03-13-2025 Note Date & Type Note Facility 03-13-2025 Evaluation note Diagnosis Onset Date Resolution Constipation acute March 13 8:59am GERD (gastroesophageal reflux disease) acute March 13, 2025 8 :59am [facility] Work Phone: 1(754) 553-961805-06-2025 Radiology Diagnostic study note [facility] Imaging Services [address] [place], [place] [address] Pelvic w/ Transvaginal MR#: [id number] Acct: [id number] Name: ESTRELLITA GARCIA Rep #: [id number] : 1970 F 54 From: Pauly Chapman MD PCP: Dr. Helen Avilez, DO Status: REG CLI Study:Pelvic w/ Transvaginal Date of Exam: 02/27/25 Exam# [id number] Ordering Dr: Myriam Liu PROCEDURE: PELVIC W/ TRANSVAGINAL, 02/27/2025 REASON FOR EXAM: PELVIC PAIN TECHNIQUE: Grayscale and color doppler transabdominal and transvaginal pelvic ultrasound was performed. COMPARISON: 02/29/2024 FINDINGS: Exam limited by shadowing bowel gas. Uterus: 7.5 x 4.4 x 3.6 cm, retroverted. Heterogeneous echotexture. Endometrium: Ill-defined and difficult to measure, roughly 3 mm. Cervix: Unremarkable. Right ovary: Again not visualized likely due to positioning and/or shadowing bowel gas. Left ovary: 2.5 x 1.6 x 1.3 cm. Unremarkable. Free fluid: None visualized. Other: Estimated bladder volume 205 mL.. US/Pelvic w/ Transvaginal IMPRESSION: 1. No acute abnormality. If unexplained symptoms persist, consider CT. 2. Heterogeneous uterus may indicate adenomyosis. 3. RIGHT ovary again not visualized. 4. Additional description as above. Reading Location: [id number] CC: BESS Liu; Dr. Helen Avilez DO ~ Golf Superintendent: Signed [facility]04-02-2025 Chief complaint+Reason for visit Narrative * Chief Complaint Admit Date SORE THROAT, CONGESTION January 24, 2025 9:26am COVID-19 January 24, 2025 9:27 am cough January 24, 2025 9:56 am [facility] Work Phone: 1(301) 428-747304-02-2025 Chief complaint+Reason for visit Narrative * Chief Complaint Admit Date SORE THROAT, CONGESTION January 24, 2025 9:26am COVID-19 January 24, 2025 9:27 am cough January 24, 2025 9:56 am HYPOTHYROIDISM February 16, 2025 2:0 1pm PELVIC PAIN February 27, 2025 12:49p m [facility] Work Phone: 1(463) 443-601004-02-2025 Chief complaint+Reason for visit Narrative * Chief Complaint Admit Date SORE THROAT, CONGESTION January 24, 2025 9:26am COVID-19 January 24, 2025 9:27 am cough January 24, 2025 9:56 am HYPOTHYROIDISM February 16, 2025 2:0 1pm PELVIC PAIN February 27, 2025 12:49p m 6 M FU March 13, 2025 8:59a m [facility] Work Phone: 1(761) 720-146504-02-2025 Chief complaint+Reason for visit Narrative * Chief Complaint Admit Date SORE THROAT, CONGESTION January 24, 2025 9:26am COVID-19 January 24, 2025 9:27 am cough January 24, 2025 9:56 am HYPOTHYROIDISM February 16, 2025 2:0 1pm PELVIC PAIN February 27, 2025 12:49p m 6 M FU March 13, 2025 8:59a m SCREENING March 26, 2025 8:23a m Reason for Visit Admit Date Constipation March 13, 2025 8:59a m GERD (gastroesophageal reflux disease) M 2024 8:59am [facility] Work Phone: 1([phone]) 877-169404-02-2025 Radiology Diagnostic study note [facility] Imaging Services [address] [place] [address] Chest PA and Lateral MR#: [id number] Acct: [id number] Name: ESTRELLITA GARCIA Rep #: [id number] : 1970 F 54 From: Pauly Cano MD PCP: Dr. Helen Avilez, DO Status: REG CLI Study:Chest PA and Lateral Date of Exam: 01/24/25 Exam# [id number] Ordering Dr: [facility] serg Neves PA PA EXAM: XR Chest, 2 Views CLINICAL INDICATION: COUGH, RIGHT ANTERIOR CHEST PAIN TECHNIQUE: Frontal and lateral views of the chest. COMPARISON: No relevant prior studies available. FINDINGS: LUNGS AND PLEURAL SPACES: Unremarkable. No consolidation. No pneumothorax. HEART: Unremarkable. No cardiomegaly. MEDIASTINUM: Unremarkable. Normal mediastinal contour. BONES/JOINTS: Unremarkable. No acute fracture. RAD/Chest PA and Lateral IMPRESSION: No acute cardiopulmonary process. Reading Location: [facility] CC: Dr. Helen Avilez, DO; SUMMER Cotto ~ Golf Superintendent: Signed [facility]10-01-2024 [facility] Medical Records Department [address] [place] [address] History Physical Exam 07/25/24 0633 MR#: [id number] Acct: [id number] Name: ESTRELLITA GARCIA Rep #: [id number] : 1970 53 From: Bebeto Friend DO PCP: Dr. Helen Avilez DO Status:REG [facility] Location: [place] [address] History and Physical Date of Admission: 07/25/24 ESTRELLITA GARCIA, is a 53 F who presents to the office today for establishment with [facility]. She has a hx of GERD with worsening symptoms since July 2023 then in November 2023 she started to having feelings of food stuck in her lower esophagus. She started semaglutide recently and she did notice worsening in her GERD symptoms and constipation. She started taking Nexium about 2.5 weeks ago and will take famotidine as needed at night; this has been helpful. Eating sugary food will make her heartburn worse.For her constipation she has been taking miralax daily but started to get diarrhea so she cut back to every other day. She has family fx of autoimmune diseases with both her children having celiac disease. She has a family history of colon cancer as well. Her first colonoscopy was at age 31 and she had 5 polyps. Last colonoscopy was in 2021 with recommendation for another in 5 years. She had an EGD about [address] Tom but does not recall why. Colonoscopy 07.01.22; - One 5 mm polyp in the proximal sigmoid colon, removed with a hot snare. Resected and retrieved. - The examination was otherwise normal on direct and retroflexion views. ROS Const Constitutional: Positive for fatigue; No fever(s) or weight change ENT ENT: Positive for difficulty swallowing Gastro GI: Positive for abdominal pain, constipation, heartburn and difficulty swallowing; No belching, bloating, change in bowel habits, change in stool character, coffee ground emesis, cramping, diarrhea, feeling full early, excessive flatus, incontinent of stools, Vomiting blood/hematemesis, Blood in stool, loose stools, Black,tarry stools, nausea/dyspepsia, pain with swallowing, vomiting or other Musc Musculoskeletal: Positive for joint pain, back pain, muscle cramps, numbness, stiffness, tingling, Arthritis and sciatica Skin Skin: No yellowing of the eye or itchy eyes Neuro Neurology: Positive for numbness and tingling Psych Psychiatric: Positive for anxiety and Positive for depression Endo Endocrine: Positive for fatigue; No weight change Aller/Imm Allergy/Immunologic: No itchy eyes Xavier/Lymp Hematologic/Lymphatic: No easy bleeding or easy bruising Exam Const General: cooperative and comfortable Nutritional Appearance: average body habitus and well nourished HENMT Head: normal to inspection Ears: hearing grossly normal bilaterally Nose: external nose normal Face and sinus: normal facial exam Eyes General: appearance normal, both eyes and all related structures Neck Neck: normal visual inspection Chest Chest palpation inspection: normal inspection of the chest Resp Effort Inspection: normal respiratory effort Cardio Palpation: normal PMI GI Inspection: normal to inspection Palpation: no hepatosplenomegaly Skin General: no rashes or lesions noted Neuro General: patient alert Extrem General: normal to inspection Psych Affect: normal affect Assessment and Plan Assessment and Plan (1) Dysphagia: Status: Acute Plan: Patient is here today for establishment with [facility]. She has a hx of GERD with worsening symptoms since July 2023. She has feeling of food getting stuck in her esophagus. She did start semaglutide recently and is aware of the effects of gastric emptying. She had an EGD about 15 years ago. Differential diagnosis includes GERD, gastritis, esophagitis, or gastroparesis. -We will schedule her for an EGD -Ordered gastrin level, antiparietal cell antibody, intrinsic factor antibody, CRP and ESR; she family hx of autoimmune conditions -CBC in February 2024 without pertinent abnormality -Suggested she take fiber and miralax alternating every other day to control her constipation. -Sent prescription for omeprazole 20 mg daily; explained side effects of custodial use -She will follow up in 3 months Orders: I have examined the patient and the H P has been reviewed. There are no clinical changes since date of exam. 07/25/24 9707 Cosigner Signature (if applicable): CC: Dr. Helen Avilez DO; Bebeto Mcadams DO [facility] Evaluation + Plan note Diagnostic Tests Pending * HPV Screen, DNA Probe 02/10/23 Future Scheduled Tests Radiology* MA Mammo Screening Bilateral w/ Ruiz 02/10/23 [facility] Carlos Tameka 12-27-2022 NoteHNO ID: [id number] Author: Ambreen Chaparro PA-C Service: ? Author Type: Physician Flight/Transport Nurse Type: Progress Notes Filed: 10/20/2022 5:21 PM Note Text: This note was created using [employer]. Subjective Estrellita Garcia is a 52 year old female. HPI Patient presents with cough congestion sore throat and hoarse voice. This started 10 days ago. She states that started with a few days of a sore throat and then she lost her voice a few days after. She has had a cough over the past 3 to 4 days. She had a negative [facility] and [facility] . She does not really feel any better at this point and has had luck with steroids in the past helping so wanted a prescription for this. She has used [id number]-geq-wubiztp cold medications with minimal relief. She has had low-grade temps in the . Review of Systems HENT: Positive for congestion, sore throat and voice change. Respiratory: Positive for cough. Negative for shortness of breath. Cardiovascular: Negative. Gastrointestinal: Negative. Genitourinary: Negative. Musculoskeletal: Negative. Neurological: Positive for headaches. All other systems reviewed and are negative. PAST MEDICAL HISTORY Diagnosis Date Internal hemorrhoids without mention of complication Other and unspecified ovarian cyst Ovarian cyst PMH - PAST MEDICAL HISTORY OF GENITAL WARTS Unspecified constipation Unspecified hypothyroidism Hypothyroidism Current Outpatient Medications Medication Sig Dispense Refill ascorbic acid, vitamin C, 500 mg cap Take by mouth. Biotin 2,500 mcg cap Take 2,500 mcg by mouth. dextroamphetamine-amphetamine (ADDERALL) 20 mg tablet Take 20 mg by mouth once daily. venlafaxine ER (EFFEXOR XR) 37.5 mg 24 hr capsule ARMOUR THYROID 90 mg tablet benzonatate (TESSALON PERLES) 100 mg capsule Take 2 capsules by mouth three times daily as needed. 30 capsule 0 predniSONE (DELTASONE) 20 mg tablet Take 2 tablets by mouth once daily for 5 days. 10 tablet 0 levothyroxine (SYNTHROID) 150 mcg tablet Take 150 mcg by mouth daily before breakfast. (Patient not taking: Reported on 10/20/2022) citalopram (CELEXA) 20 mg tablet daily (Patient not taking: Reported on 10/20/2022) 0 omeprazole(PRILOSEC 20 MG CAP) Take one(1) capsule daily. (Patient not taking: Reported on 10/20/2022) 0 0 naproxen sodium(ANAPROX DS 550 MG TAB) Take one(1) tablet twelve(12) hours as needed for pain. (Patient not taking: Reported on 10/20/2022) 30 1 DENAVIR 1 % TOPICAL CREAM Apply every 2 hrs while awake for 5 days (Patient not taking: Reported on 10/20/2022) 1 2 No current facility-administered medications for this visit. PAST SURGICAL HISTORY Procedure Laterality Date ANESTHESIA HERNIA REPAIR LOWER ABDOMEN NOS BUNION SHIELD, PULLOVER COLONOSCOPY FLX DX W/COLLJ SPEC WHEN PFRMD 08/17/05 Colonoscopy LIG/TRNSXJ FLP TUBE ABDL/VAG APPR UNI/BI Tubal ligation OOPHORECTOMY PARTIAL/TOTAL UNI/BI of the right ovary TONSILLECTOMY PRIMARY/SECONDARY Tonsillectomy FAMILY HISTORY Problem Relation Age of Onset Coronary Artery Disease Mother Colon Cancer Paternal Grandfather other (stomach problems [Other]) Father can't have foods with gluttens in them. Social History Tobacco Use Smoking status: Former Types: Cigarettes Start date: 01/23/2013 Tobacco comments: 2-6 cig per day Substance Use Topics Alcohol use: No Drug use: No Objective BP 128/80 Pulse 88 Temp 37.3 ?C (99.1 ?F) (Tympanic) Resp 18 Wt 89.4 kg (197 lb) LMP 12/26/2013 SpO2 96% Physical Exam Vitals reviewed. Constitutional: Appearance: Normal appearance. HENT: Head: Normocephalic and atraumatic. Right Ear: Tympanic membrane, ear canal and external ear normal. Left Ear: Tympanic membrane, ear canal and external ear normal. Nose: Congestion present. Mouth/Throat: Mouth: Mucous membranes are moist. Pharynx: Oropharynx is clear. Cardiovascular: Rate and Rhythm: Normal rate and regular rhythm. Heart sounds: Normal heart sounds. Pulmonary: Effort: Pulmonary effort is normal. Breath sounds: Normal breath sounds. No wheezing, rhonchi or rales. Comments: Hoarse voice Skin: General: Skin is warm and dry. Neurological: Mental Status: She is alert. Assessment and Plan ASSESSMENT/PLAN: 1. Bronchitis - ICD9: 490, ICD10: J40 Likely viral bronchitis. Discussed if she were to spike a fever over the next few days her cough worsens would recommend being reevaluated. Prednisone and Tessalon sent. [facility]12-27-2022 History of Present illness Narrative* SUMMER Martinez-[facility] - 10/20/2022 5:18 PM EST This note was created using [employer]. Eugenio Garcia is a 52 year old female. HPI Patient presents with cough congestion sore throat and hoarse voice. This started 10 days ago. She states that started with a few days of a sore throat and then she lost her voice a few days after. She has had a cough over the past 3 to 4 days. She had a negative COVID and strep test at the [facility] on the . She does not really feel any better at this point and has had luck with steroids inthe past helping so wanted a prescription for this. She has used bagb-jzf-sueyvlc cold medications with minimal relief. She has had low-grade temps in the . Review of Systems HENT: Positive for congestion, sore throat and voice change. Respiratory: Positive for cough. Negative for shortness of breath. Cardiovascular: Negative. Gastrointestinal: Negative. Genitourinary: Negative. Musculoskeletal: Negative. Neurological: Positive for headaches. All other systems reviewed and are negative. PAST MEDICAL HISTORY Diagnosis Date Internal hemorrhoids without mention of complication Other and unspecified ovarian cyst Ovarian cyst PMH - PAST MEDICAL HISTORY OF GENITAL WARTS Unspecified constipation Unspecified hypothyroidism Hypothyroidism Current Outpatient Medications Medication Sig Dispense Refill ascorbic acid, vitamin C, 500 mg cap Take by mouth. Biotin 2,500 mcg cap Take 2,500 mcg by mouth. dextroamphetamine-amphetamine (ADDERALL) 20 mg tablet Take 20 mg by mouth once daily. venlafaxine ER (EFFEXOR XR) 37.5 mg 24 hr capsule ARMOUR THYROID 90 mg tablet benzonatate (TESSALON PERLES) 100 mg capsule Take 2 capsules by mouth three times daily as needed. 30 capsule 0 predniSONE (DELTASONE) 20 mg tablet Take 2 tablets by mouth once daily for 5 days. 10 tablet 0 levothyroxine (SYNTHROID) 150 mcg tablet Take 150 mcg by mouth daily before breakfast. (Patient nottaking: Reported on 10/20/2022) citalopram (CELEXA) 20 mg tablet daily (Patient not taking: Reported on 10/20/2022) 0 omeprazole(PRILOSEC 20 MG CAP) Take one(1) capsule daily. (Patient not taking: Reported on 10/20/2022) 0 0 naproxen sodium(ANAPROX DS 550 MG TAB) Take one(1) tablet twelve(12) hours as needed for pain. (Patient not taking: Reported on 10/20/2022) 30 1 DENAVIR 1 % TOPICAL CREAM Apply every 2 hrs while awake for 5 days (Patient not taking: Reported on10/20/2022) 1 2 No current facility-administered medications for this visit. PAST SURGICAL HISTORY Procedure Laterality Date ANESTHESIA HERNIA REPAIR LOWER ABDOMEN NOS BUNION SHIELD, PULLOVER COLONOSCOPY FLX DX W/COLLJ SPEC WHEN PFRMD 08/17/05 Colonoscopy LIG/TRNSXJ FLP TUBE ABDL/VAG APPR UNI/BI Tubal ligation OOPHORECTOMY PARTIAL/TOTAL UNI/BI of the right ovary TONSILLECTOMY PRIMARY/SECONDARY <AGE 12 Tonsillectomy FAMILY HISTORY Problem Relation Age of Onset Coronary Artery Disease Mother Colon Cancer Paternal Grandfather other (stomach problems [Other]) Father can't have foods with gluttens in them. Social History Tobacco Use Smoking status: Former Types: Cigarettes Start date: 01/23/2013 Tobacco comments: 2-6 cig per day Substance Use Topics Alcohol use: No Drug use: No Objective BP 128/80 Pulse 88 Temp 37.3 C (99.1 F) (Tympanic) Resp 18 Wt 89.4 kg (197 lb) LMP 12/26/2013 SpO2 96% Physical Exam Vitals reviewed. Constitutional: Appearance: Normal appearance. HENT: Head: Normocephalic and atraumatic. Right Ear: Tympanic membrane, ear canal and external ear normal. Left Ear: Tympanic membrane, ear canal and external ear normal. Nose: Congestion present. Mouth/Throat: Mouth: Mucous membranes are moist. Pharynx: Oropharynx is clear. Cardiovascular: Rate and Rhythm: Normal rate and regular rhythm. Heart sounds: Normal heart sounds. Pulmonary: Effort: Pulmonary effort is normal. Breath sounds: Normal breath sounds. No wheezing, rhonchi or rales. Comments: Hoarse voice Skin: General: Skin is warm and dry. Neurological: Mental Status: She is alert. Assessment and Plan ASSESSMENT/PLAN: 1. Bronchitis - ICD9: 490, ICD10: J40 Likely viral bronchitis. Discussed if she were to spike a fever over the next few days her cough worsens would recommend being reevaluated. Prednisone and Tessalon sent. Ambreen Chaparro PA-C [facility] History of Past illness Narrative* Problem Noted Date Resolved Date Urinary tract infection, site not specified 07/2507/29/2016 documented as of this encounter (statuses as of 10/26/2022) [facility] for visit Narrative* Chief Complaint SCREENING ABNORMAL MAMM RIGHT BREAST BIRADS 4 COVID-19 ABNORMAL BREAST IMAGING Reason for Visit Breast mass, [facility] Work Phone: Chief complaint+Reason for visit Narrative* Chief Complaint SCREENING ABNORMAL MAMM RIGHT BREAST BIRADS 4 COVID-19 ABNORMAL BREAST IMAGING ABN BREAST IMAGING Reason for Visit Breast mass, right [facility] Work Phone: Evaluation note* Diagnosis Onset Date Resolution Status Breast mass, right acute [facility] Work Phone: Evaluation note* Diagnosis Onset Date Resolution Status Cellulitis of left ear canal acute COVID acute [facility] Work Phone: Evaluation note* Diagnosis Onset Date Resolution Status COVID acute [facility] Work Phone: Evaluation note* Diagnosis Onset Date Resolution Status Abnormal finding on breast imaging acute [facility] Work Phone: Evaluation note* Diagnosis Onset Date Resolution Status Abnormal finding on breast imaging acute Contact with or suspected ex posure to other viral communicable disease acute Pharyngitis, acute acute [facility] Work Phone: Evaluation note* Diagnosis Bronchitis- Primary Bronchitis, not specified as acute or chronic documented in this encounter [facility] noteNo assessment information availableWBarnesville [facility] Work Phone: Evaluation note* Diagnosis Onset Date Resolution Status Gastroenteritis acute Pharyngitis, acute acute [facility] Work Phone: Evaluation note* Diagnosis Onset Date Resolution Status Gastroenteritis acute Pharyngitis, acute acute Encounter for screening for malignant neoplasm of lung acute History of tobacco use acute Lung nodule, solitary acute [facility] Work Phone: Hospital course Narrative No data available for this section [facility] Discharge instructions No data available for this section [facility] Progress note No data available for this section [facility] Reason for referral (narrative)No reason for referral information availableWBarnesville Hospital Work Phone: Summary Purpose Family History No Family History Records FoundNo Family History Records FoundNo Family History Records FoundNo Family History Records Found Advance Directives No Advanced Directives Records Found Advance Directive Response Recorded Date/ Time Advance Directives No March 03 10:55am Living Will Yes March 03, 2022 1 0:55am Power of Supervisor Word Processing Yes March 03, 2022 10:55am Advance Directive Response Recorded Date/ Time Advance Directives No March 03 9:55am Living Will Yes March 03, 2022 9 :55am Power of Supervisor Word Processing Yes March 03, 2022 9:55am Advance Directive Response Recorded Date/ Time Advance Directives No March 03 2 10:55am Chief Complaint and Reason for Visit Chief Complaint ABN BREAST IMAGING LEFT EAR INFECTION SYMPTOMS/ 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 Reason for Visit Cellulitis of left e ar canal COVID Chief Complaint SYMPTOMS/ 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 RIGHT BREAST MASS Reason for Visit COVID Chief Complaint 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 RIGHT BREAST MASS discuss breast ultrasound/possible biopsy RIGHT BREAST BX RIGHT BREAST BX Reason for Visit Abnormal finding on breast imaging Chief Complaint 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 RIGHT BREAST MASS discuss breast ultrasound/possible biopsy RIGHT BREAST BX RIGHT BREAST BX COVID TEST/[employer] [facility] EMPLOYEE LEFT HIP PAIN Reason for Visit Abnormal finding on breast imaging Contact with or suspected exposure to other viral communicable disease Pharyngitis, acute Chief Complaint SCREENING Chief Complaint SCREENING Hypothyroidism, unspecified Chief Complaint NAUSEA/VOMITING PT CALLING FOR ORDER Reason for Visit Gastroenteritis Pharyngitis, acute Chief Complaint NAUSEA/VOMITING PT CALLING FOR ORDER Lung Cancer 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 Reason for Visit Gastroenteritis Pharyngitis, acute Encounter for screening for malignant neoplasm of lung History of tobacco use Lung nodule, solitary Additional Source Comments INFORMATION SOURCE (unrecogn ized section and content) DATE CREATED AUTHOR 11/23/2021 [facility] DATE CREATED AUTHOR AUTHOR'S ORGANIZ ATION 10/21/2022 [facility] DATE CREATED AUTHOR AUTHOR'S ORGANIZ ATION 02/20/2023 [facility] DATE CREATED AUTHOR AUTHOR'S ORGANIZ ATION 07/18/2025 [facility] Goals (unrecognized section and content) Goals may be documented in a n alternate sectionGoals may be documented in an alternate sectionGoals may be documented in an alternate sectionGoals may be documented in an alternate sectionGoals may be documented in an alternate sectionGoals may be documented in an alternate sectionGoals may be documented in an alternate sectionGoals may be documented in an alternate section No data available for this sectionGoals may be documented in an alternate sectionGoals may be documented in an alternate sectionGoals may be documented in an alternate sectionGoals may be documented in an alternate sectionGoals may be documented in an alternate sectionGoals may be documented in an alternate sectionGoals may be documented in an alternate sectionGoals may be documented in an alternate sectionGoals may be documented in an alternate section Source Comments (unrecognize d section and content) In the event this informatio n is protected by the Federal Confidentiality of Alcohol and Drug Abuse Patient Records regulations: The Federal rules restrict any use of the information to criminally investigate or prosecute any alcohol or drug abuse patient.[facility] Reason for Visit (unrecogniz ed section and content) Reason Comments Cough Cough, runny nose, S T x 10 days-also lost her voice Care Teams (unrecognized sec tion and content) Team Status: Active Member Role Status Dates Dr. Helen Avilez DO Primary Care Provider Active Team Status: Inactive Member Role Status Dates Dr. Helen Avilez DO Primary Care Provider Active Start: January 24, 2025 End: January 24, 2025 Dr. Helen Avilez DO Referring Provider Active St art: January 24, 2025 End: January 24, 2025 SUMMER Obando Attending Provider Active Start: January 24, 2025 End: January 24, 2025 Team Status: Inactive Member Role Status Dates Dr. Helen Avilez DO Primary Care Provider Active Start: January 24, 2025 End: January 24, 2025 SUMMER Obando Attending Provider Active Start: January 24, 2025 End: January 24, 2025 SUMMER Obando Referring Provider Active Start: January 24, 2025 End: January 24, 2025 Team Status: Active Member Role Status Dates Dr. Helen Avilez DO Primary Care Provider Active Start: February 01, 2025 Health Risk Assessment Attending Provider Active Start: February 01, 2025 Team Status: Inactive Member Role Status Dates Dr. Helen Avilez DO Primary Care Provider Active Start: February 16, 2025 End: February 16, 2025 Dr. Helen Avilez DO Attending Provider Active St art: February 16, 2025 End: February 16, 2025 Dr. Helen Avilez DO Referring Provider Active St art: February 16, 2025 End: February 16, 2025 Team Status: Inactive Member Role Status Dates Dr. 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 Helen Avilez DO Family Provider Active Dr. Helen Avilez DO Primary Care Provider Active Team Status: Inactive Member Role Status Dates Dr. Helen Avilez DO Primary Care Provider Active Myriam Liu NP-C Attending Provider, Referring Pr ovider Active Team Status: Inactive Member Role Status Dates Dr. Helen Avilez DO Primary Care Provide r, Attending Provider, Referring Provider Active Team Status: Active Member Role Status Dates Dr. Helen Avilez DO Primary Care Provider Active Health Risk Assessment Attending Provider Active Team Status: Inactive Member Role Status Dates Dr. Helen Avilez DO Primary Care Provider, Referring P rovider Active Garrick WHEELER PA Attending Provider Active Team Status: Inactive Member Role Status Dates Dr. Helen Avilez DO Primary Care Provider, Referring P rovider Active Tamia Still INVESTMENT BROKER, INVESTMENT BROKER-C Attending Provider Active Team Status: Inactive Member Role Status Dates Dr. Helen Avilez DO Primary Care Provider Active Tamia Still INVESTMENT BROKER, INVESTMENT BROKER-C Attending Provider, Referring Provider Active Team Status: Inactive Member Role Status Dates Dr. Helen Avilez DO Primary Care Provider Active Start: March 13, 2025 End: March 13, 2025 Dr. Helen Avilez DO Referring Provider Active St art: March 13, 2025 End: March 13, 2025 SUMMER Michaels Attending Provider Active Start: March 13, 2025 End: March 13, 2025 Team Status: Inactive Member Role Status Dates Dr. Helen Avilez DO Primary Care Provider Active Start: March 26, 2025 End: March 26, 2025 Myriam Liu NP-Briana Attending Provider Active Start: March 26, 2025 End: March 26, 2025 Myriam Liu NP-Briana Referring Provider Active Start: March 26, 2025 End: March 26, 2025 FOR RECORDS PERTAINING TO PATIENTS WHO ARE OR HAVE BEEN ENROLLED IN A CHEMICAL DEPENDENCY/SUBSTANCEABUSE PROGRAM, SOME INFORMATION MAY BE OMITTED. This clinical summary was aggregated from multiple sources. Caution should be exercised in using it in the provision of clinical care. This summary normalizes information from multiple sources, and as a consequence, information in this document may materially change the coding, format and clinical context of patient data. In addition, data may be omitted in some cases. CLINICAL DECISIONS SHOULD BE BASED ON THE PRIMARY CLINICAL RECORDS. [facility], [facility]. provides no warranty or guarantee of the accuracy or completeness of information in this document.
--- OUTSIDE RECORDS SUMMARY | 2025-07-18 18:50 | XMS RPT_ITS | CCD ---
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 Helen Avilez Primary Care Provider [phone] Dr. Helen Avilez Referring Provider Dr. Javi Feliz Attending Provider SUMMER Alcantar Attending Provider [phone] Dr. Helen Avilez Primary Care Provider Dr. Helen Avilez Referring Provider SUMMER Lechuga Attending Provider [phone] BESS Srivastava Attending Provider Dr. Helen Avilez Primary Care Provider Dr. Helen Avilez Referring Provider BESS Srivastava Attending Provider Dr. Helen Avilez Primary Care Provider Dr. Helen Avilez Referring Provider Dr. Javi Feliz Attending Provider [phone] Dr. Javi Feliz Referring Provider Dr. Javi Feliz Other Provider [phone] BRADY SHEA Primary Care Unavailable SUMMER Alcantar [...] Referring Provider SUMMER Lechuga Attending Provider Cheko HATCH TENDER, HATCH TENDER-C Tamia Attending Provider Fatmata CLARK, Dr. Cervantes Primary Care Provider Fatmata CLARK, Dr. Cervantes Referring Provider Garrick Lechuga Attending Provider Garrick Lechuga Referring Provider Assessment, Health Risk Attending Provider Unava ilable Fatmata CLARK, Dr. Cervantes Attending Provider [phone] Liu HATCH TENDER-C, Myriam Attending Provider Liu HATCH TENDER-C, Myriam Referring Provider Argenis Spain Attending Provider Malys, Helen Referring Unavailable Malys, Helen Primary Care Unavailable Malys, Helen Attending Unavailable Malys, Helen Primary Care Unavailable Garrick Lechuga Referring Unavailable Garrick Lechuga Attending Unavailable Myriam Liu Referring Unavailable LiuMyriam Attending Unavailable Malys, Helen Primary Care Unavailable Cheko HATCH TENDER, Tamia Consulting Unavailable Bebeto Mcadams Attending Unavailable Malys, Helen Primary Care Unavailable Malys, Helen Referring Unavailable Cheko HATCH TENDER, Tamia Referring Unavailable Cheko HATCH TENDER, Tamia Attending Unavailable Malys, Helen Primary Care Unavailable Malys, Helen Referring Unavailable Argenis Jimenes Attending Unavailable Malys, Helen Primary Care Unavailable Malys, Helen Primary Care Unavailable Garrick Lechuga Attending Unavailable Malys, Helen Referring Unavailable Argenis Jimenes Attending Unavailable Malys, Helen Primary Care Unavailable Malys, Helen Referring Unavailable Cheko HATCH TENDER, Tamia Consulting Unavailable Friend, Bebeto Attending Unavailable Malys, Helen Primary Care Unavailable Malys, Helen Referring Unavailable Friend, Bebeto Consulting Unavailable Cheko HATCH TENDER, Tamia Referring Unavailable Cheko HATCH TENDER, Tamia Attending Unavailable Malys, Helen Primary Care [...] Translations: [Penicillins] Allergy to substance 03-02-2022 Angioedema [facility] (2 sources) Penicillin; Translations: [PENICILLIN G] Drug Allergy 01-13-2014 Swelling [facility] Repository (1 source) Penicillin; Translations: [penicillins] Drug Allergy LIPS [facility] Medications Current Medications Medication Drug Class(es) Dates Sig (Normalized) Sig (Original) Ascorbic Acid (19 sources) Vitamin C Start: 02-10-2023 Vitamin C qDay , 0 Refill(s) Start Date: 02/10/23 Status: Ordered Start: 03-02-2022 take [address] [facility] once daily Ascorbic Acid (Vitamin C) 500 [...] 12:00am Start: 09-22-2016 [facility] biotin 1 TAB, Oral, qDay, 0 Refill(s) Start Date: 09/22/16 Status: Ordered Comment on above: Take 2,[address] [facility]. cholecalciferol 0.05 mg oral capsule (17 sources) Vitamin D Start: 03-02-20 take 1 capsule by mouth once daily Cholecalciferol (Vitamin D3) 50 mcg (2,000 unit) capsule Active 50 ug PO DAILY March 02, 2022 12:00am 84 hr estradiol 0.70858 mg/hr transdermal system (9 sources) Estrogen Start: [...] January 24, 2025 12:00am 50mg- Thyroid (Pork) ([place] Thyroid) 90 mg tablet (4 sources) Start: 10-25-19 19 Thyroid (Pork) ([place] Thyroid) 90 mg tablet Active [facility] October 25, 2018 1:00am Vitamin D3 (1 [...] on above: Take [address] [facility] once daily for 5 days. promethazine hydrochloride 25 mg oral tablet (6 sources) Phenothiazine Start: End: take 1 tablet by mouth three times daily as needed for nausea and vomiting Promethazine 25 mg tablet Discontinued 25 mg PO THREE TIMES A DAY as needed for nausea and vomiting November 01, 2023 1:00am January 25, 2024 12:03pm thyroid (residential) 120 mg oral tablet (20 sources) Start: End: take 1 tablet by mouth once daily Thyroid (Pork) 120 MG tablet Discontinued 120 mg PO DAILY January 14, 2017 12:00am October 25, 2018 9:43am Start: 09-22-2016 take 1 tablet by mouth once da michael Thyroid (Pork) ([place] Thyroid) 90 mg tablet Active 90 MG [...] Start: 10-25-2018 take [address] [facility] once daily Venlafaxine (Effexor Xr) 37.5 mg [...] By: Ursula Jones on 03-26-2025 Study report [facility] Imaging Services [address] [place] [id number] SCRN MAMM (CAD)W/RUIZ BILAT MR#: [id number] Acct: [id number] Name: ESTRELLITA GARCIA Rep #: [id number] : 1970 F 54 From: Dennis Jones DO PCP: Dr. Helen Avilez, Status: [facility] Study:SCRN MAMM (CAD)W/RUIZ BILAT Date of Exa m: 03/26/25 Exam# [id number] Ordering Dr: Myriam Liu HATCH TENDER-C EXAM: SCRN MAMM (CAD)W/RUIZ BILAT DATE: 03/26/2025 [...] be mailed to the patient. Reading Location: [id number] CC: BESS Liu; Dr. Helen Avilez DO ~ Brand Advocate: Signed [facility] SCRN MAMM (CAD)W/RUIZ BILATo n 03-26-2025 SCRN MAMM (CAD)W/RUIZ BILAT [facility] Imaging Services [address] [place] [address] [id number] SCRN MAMM (CAD)W/RUIZ BILAT MR#: [id number] Acct: [id number] Name: ESTRELLITA GARCIA Rep #: [id number] : 1970 F 54 From: Ursula Valdez PCP: Dr. Helen Avilez DO Status: [facility] CLI Study: SCRN MAMM (CAD)W/RUIZ BILAT Date of Exam: 12/19 Exam# [id number] Ordering Dr: Myriam Liu EXAM: SCRN MAMM [...] be mailed to the patient. Reading Location: [id number] CC: BESS Liu; Dr. Helen Avilez DO Brand Advocate: Signed Normal [facility] Gastroenterology Visit Repor ton 03-13-2025 Gastroenterology Visit Report [facility] Gastroenterology [address] [place] [address] OFFICE VISIT Date of Service: 03/13/25 MR#: [id number] Acct: [id number] Name: ESTRELLITA GARCIA Rep #: [id number] : 1970 Provider: SUMMER Michaels Age/Sex: 54/F Location: [facility] Status: Signed Intake Vital Signs 07/25/24 12:27 01/24/25 09:33 Height 5 ft 7 in 5 ft 7 in Intake Visit Reasons: 6 M FU Chief Complaint: GERD Allergies Penicillins (PCN) Allergy (Verified 01/24/25 09:26) Angioedema Medications ???Medication ???Instructions ???Recorded ???Confirmed ???Type thyroid (pork) 90 mg tablet 90 mg PO MOTUTHFRSA 10/25/1801/24 History ([place] Thyroid) venlafaxine 37.5 mg 75 mg PO [...] 01/24/25 01/24/25 Rx a dose pack (Medrol (Watl)) #21 tabs testosterone 100 mg/mL mg IM [...] doing well. Heartburn well controlled with PPI. [place] concern is constipation. Takes miralax 5 days [...] has been (more content not included)... Normal [facility] Pelvic w/ Transvaginalon Pelvic w/ Transvaginal [facility] Imaging Services [address] [place] [address] Pelvic w/ Transvaginal MR#: [id number] Acct: [id number] Name: ESTRELLITA GARCIA Rep #: [id number] : 1970 F 54 From: Moris Chapman MD PCP: Dr. Helen Avilez, DO Status: REG CLI Study: Pelvic w/ Transvaginal Date of Exam: 02/27/25 Exam# [id number] Ordering Dr: Myriam Liu PROCEDURE: PELVIC W/ [...] 4. Additional description as above. Reading Location: [id number] CC: BESS Liu; Dr. Helen Avilez DO Brand Advocate: Signed Normal [facility] Free T3on 02-16-2025 Free T3 [Mass/Vol] 2.8 pg/mL Normal 2.18-3.98 [facility] Comment on above: Performed By: #### L 506.0400, L501.1400, L501.9520, L501.39909 #### [facility] Laboratory [facility] [place], [place], [id number] Free D0Narrzhu By: Helen real on 02-16-2025 Free T3 [Mass/Vol] 2.8 pg/mL 2.18-3.98 [facility] Serum or plasma uric acid me asurement (mass/volume)Ordered By: Helen Avilez on 02-16-2025 Urate [Mass/Vol] 3.7 mg/dL 2.6-6.0 [facility] Comment on above: The drugs N-Acetylcy steine and Metamizole may falsely depress this assay. T4 Free Directon 02-16-2025 T4 FREE DIRECT 0.50 ng/dL Low 0.76-1.46 [facility] Comment on above: Performed By: #### L 506.0400, L501.1400, L501.9520, L501.50730 #### [facility] Laboratory [address] [place], [place], [id number] T4 freeOrdered By: Helen Steven s on 02-16-2025 Free T4 [Mass/Vol] 0.50 ng/dL Low 0.76-1.46 [facility] TSH DL <= 0.005 mIU/L QnOrde red By: Helen Avilez on 02-16-2025 TSH Qn 11.700 uIU/mL High 0.300-4.200 [facility] Thyroid Stim Hormone (TSH)on 02-16-2025 TSH 11.700 uIU/mL High 0.300-4.200 [facility] Comment on above: Performed By: #### L 506.0400, L501.1400, L501.9520, L501.28367 #### [facility] Laboratory [address] [place], [place], [id number] Uric Acidon 02-16-2025 URIC 3.7 mg/dL Normal 2.6-6.0 [facility] Comment on above: Result Comment: The drugs N-Acetylcysteine and Metamizole may falsely depress this assay. Performed By: #### L 506.0400, L501.1400, L501.9520, L501.82210 #### [facility] Laboratory [address] [place], [place], [id number] Absolute lymphocyte countOrd ered By: HEALTH ASSESSMENT on 02-01-2025 Lymphocytes Auto (Unsp spec) [#/Vol] 1.97 10*3/uL 0.83-4.51 [facility] Absolute neutrophil countOrd ered By: HEALTH ASSESSMENT on 02-01-2025 Neutrophils (Bld) [#/Vol] 3.0 10*3/uL 2.0-7.7 [facility] Absolute nucleated red blood cell countOrdered By: HEALTH ASSESSMENT on 02-01-2025 Nucleated RBC (Bld) [#/Vol] 0.00 10*3/uL 0-5 [facility] Anion gap in Serum or Plasma Ordered By: HEALTH ASSESSMENT on 02-01-2025 Anion gap [Moles/Vol] 10 mmol/L 5-15 [facility] BUN/creatinine ratioOrdered By: HEALTH ASSESSMENT on 02-01-2025 Urea nitrogen/Creatinine [Mass ratio] 21.8 mg/mg High 10-20 [facility] Bilirubin directOrdered By: HEALTH ASSESSMENT on 02-01-2025 Bilirubin.direct [Mass/Vol] 0.09 mg/dL 0.00-0.30 [facility] Bilirubin, totalOrdered By: HEALTH ASSESSMENT on 02-01-2025 Bilirubin [Mass/Vol] 0.26 mg/dL 0.00-1.30 [facility] CBC, Employeeon 02-01-2025 Absolute Lymph 1.97 X10 3/uL Normal 0.83-4.51 [facility] Comment on above: Performed By: #### L 100.0200, L400.0100, L500.2900 #### [facility] Laboratory [address] [place], [address] Absolute Neut 3.0 X10 3/uL Normal 2.0-7.7 [facility] Comment on above: Performed By: #### L 100.0200, L400.0100, L500.2900 #### [facility] Laboratory [address] [place], [address] Basophils/100 WBC (Bld) 1.3 % High 0-1 [facility] Comment on above: Performed By: #### L 100.0200, L400.0100, L500.2900 #### [facility] Laboratory [address] [place], [address] Eosinophils/100 WBC (Bld) 6.2 % High 0-5 [facility] Comment on above: Performed By: #### L 100.0200, L400.0100, L500.2900 #### [facility] Laboratory [address] [place], [address] Erythrocyte distribution width (RBC) [Ratio] 13.2 % Normal 11.6-14.6 [facility] Comment on above: Performed By: #### L 100.0200, L400.0100, L500.2900 #### [facility] Laboratory [address] [place], [address] Hematocrit (Bld) [Volume fraction] 39.4 % Normal 37-47 [facility] Comment on above: Performed By: #### L 100.0200, L400.0100, L500.2900 #### [facility] Laboratory [address] [place], [address] Hemoglobin (Bld) [Mass/Vol] 13.0 g/dL Normal 12.0-15.0 [facility] Comment on above: Performed By: #### L 100.0200, L400.0100, L500.2900 #### [facility] Laboratory [address] [place], [address] Lymphocytes/100 WBC (Bld) 32.2 % Normal 19-41 [facility] Comment on above: Performed By: #### L 100.0200, L400.0100, L500.2900 #### [facility] Laboratory [address] [place], [address] MCH (RBC) [Entitic mass] 29.8 pg Normal 27.0-32.0 [facility] Comment on above: Performed By: #### L 100.0200, L400.0100, L500.2900 #### [facility] Laboratory [address] [place], [address] MCHC (RBC) [Mass/Vol] 33.0 g/dL Normal 32-36 [facility] Comment on above: Performed By: #### L 100.0200, L400.0100, L500.2900 #### [facility] Laboratory [address] [place], [address] MCV (RBC) [Entitic vol] 90.4 fL Normal 81-99 [facility] Comment on above: Performed By: #### L 100.0200, L400.0100, L500.2900 #### [facility] Laboratory [address] [place], [address] Monocytes/100 WBC (Bld) 6.9 % Normal 0-10 [facility] Comment on above: Performed By: #### L 100.0200, L400.0100, L500.2900 #### [facility] Laboratory [address] [place], [address] Neutrophils/100 WBC (Bld) 49.5 % Normal 47-70 [facility] Comment on above: Performed By: #### L 100.0200, L400.0100, L500.2900 #### [facility] Laboratory [address] [place], [address] NRBC # 0.00 10 3/uL Normal 0-5 [facility] Comment on above: Performed By: #### L 100.0200, L400.0100, L500.2900 #### [facility] Laboratory [address] [place], [address] Nucleated RBC (Bld) [#/Vol] 0 10*3/uL Normal 0-5 [facility] Comment on above: Performed By: #### L 100.0200, L400.0100, L500.2900 #### [facility] Laboratory [address] [place], [address] Platelet mean volume (Bld) [Entitic vol] 9.0 fL Normal 6.2-12.0 [facility] Comment on above: Performed By: #### L 100.0200, L400.0100, L500.2900 #### [facility] Laboratory [address] [place], [address] Platelets (Bld) [#/Vol] 298 10*3/uL Normal 150-450 [facility] Comment on above: Performed By: #### L 100.0200, L400.0100, L500.2900 #### [facility] Laboratory [address] [place], [address] RBC (Bld) [#/Vol] 4.36 10*6/uL Normal 4.2-5.4 [facility] Comment on above: Performed By: #### L 100.0200, L400.0100, L500.2900 #### [facility] Laboratory [address] [place], [address] RDW SD 43.8 fl Normal 35.1-43.9 [facility] Comment on above: Performed By: #### L 100.0200, L400.0100, L500.2900 #### [facility] Laboratory [address] [place], [address] WBC (Bld) [#/Vol] 6.1 10*3/uL Normal 4.4-11.0 [facility] Comment on above: Performed By: #### L 100.0200, L400.0100, L500.2900 #### [facility] Laboratory [address] [place], [address] Calculated very low density lipoprotein (VLDL) cholesterol measurementOrdered By: HEALTH ASSESSMENT on 02-01-2025 Calculated very low density lipoprotein (VLDL) cholesterol measurement 26 mg/dL 5-40 [facility] Carbon dioxide, total [Moles /volume] in Central venous bloodOrdered By: HEALTH ASSESSMENT on 02-01-2025 CO2 [Moles/Vol] 25.2 mmol/L 21.0-32.0 [facility] Chloride assayOrdered By: HE ALTH ASSESSMENT on 02-01-2025 Chloride [Moles/Vol] 106 mmol/L 98-108 [facility] Employee Profileon Cholesterol in LDL [Mass/Vol] 120 mg/dL Normal 0-130 [facility] Comment on above: Performed By: #### L 100.0200, L400.0100, L500.2900 #### [facility] Laboratory [address] [place], [address] Erythrocyte distribution wid th ratioOrdered By: HEALTH ASSESSMENT on 02-01-2025 Erythrocyte distribution width (RBC) [Ratio] 13.2 % 11.6-14.6 [facility] Erythrocyte distribution wid th standard deviationOrdered By: HEALTH ASSESSMENT on 02-01-2025 Erythrocyte distribution width (RBC) [Ratio] 43.8 fl 35.1-43.9 [facility] Glomerular filtration rate ( GFR) estimation/1.73 sq m using serum, plasma, or whole bOrdered By: HEALTH ASSESSMENT on 02-01-2025 GFR/1.73 sq M.predicted among non-blacks MDRD (S/P/Bld) [Vol rate/Area] 68 mL/min/{1.73_m2} >60 [facility] Comment on above: mL/min/1.73m2 CKD-EP I Creatinine Equation (2020) Hematocrit Auto (Bld) [Volum e fraction]Ordered By: HEALTH ASSESSMENT on 02-01-2025 Hematocrit (Bld) [Volume fraction] 39.4 % 37-47 [facility] Hemoglobin measurementOrdere d By: HEALTH ASSESSMENT on 02-01-2025 Hemoglobin (Bld) [Mass/Vol] 13.0 g/dL 12.0-15.0 [facility] Laboratory - Chemistry and C hemistry - challengeOrdered By: HEALTH ASSESSMENT on 02-01-2025 AST [Catalytic activity/Vol] 19 U/L <32 [facility] Lactate dehydrogenase (LDH) measurementOrdered By: HEALTH ASSESSMENT on 02-01-2025 LDH [Catalytic activity/Vol] 181 U/L 84-246 [facility] Comment on above: Hemolysis present, R esults could be affected. Low density lipoprotein (LDL ) cholesterol measurementOrdered By: HEALTH ASSESSMENT on 02-01-2025 Cholesterol in LDL [Mass/Vol] 120 mg/dL 0-130 [facility] MCV (mean corpuscular volume ) determinationOrdered By: HEALTH ASSESSMENT on 02-01-2025 MCV (RBC) [Entitic vol] 90.4 fL 81-99 [facility] Mean corpuscular hemoglobin (MCH) determinationOrdered By: HEALTH ASSESSMENT on 02-01-2025 MCH (RBC) [Entitic mass] 29.8 pg 27.0-32.0 [facility] Mean corpuscular hemoglobin concentration (MCHC) determinationOrdered By: HEALTH ASSESSMENT on 02-01-2025 MCHC (RBC) [Mass/Vol] 33.0 g/dL 32-36 [facility] Mean platelet volume determi nationOrdered By: HEALTH ASSESSMENT on 02-01-2025 Platelet mean volume (Bld) [Entitic vol] 9.0 fL 6.2-12.0 [facility] Neutrophil percentageOrdered By: HEALTH ASSESSMENT on 02-01-2025 Neutrophils/100 WBC (Bld) 49.5 % 47-70 [facility] Nucleated red blood cell per centageOrdered By: HEALTH ASSESSMENT on 02-01-2025 Nucleated RBC/100 WBC (Bld) [Ratio] 0 % 0-5 [facility] Platelet countOrdered By: HE ALTH ASSESSMENT on 02-01-2025 Platelets (Bld) [#/Vol] 298 10*3/uL 150-450 [facility] Potassium measurement (mass/ volume)Ordered By: HEALTH ASSESSMENT on 02-01-2025 Potassium (Unsp spec) [Mass/Vol] 4.5 mmol/L 3.3-5.1 [facility] RBC Auto (Bld) [#/Vol]Ordere d By: HEALTH ASSESSMENT on 02-01-2025 RBC (Bld) [#/Vol] 4.36 10*6/uL 4.2-5.4 [facility] Screening total cholesterol/ high density lipoprotein (HDL) cholesterol ratioOrdered By: HEALTH ASSESSMENT on 02-01-2025 Cholesterol.total/Choles terol in HDL [Mass ratio] 3.67 {ratio} [facility] Serum creatinine measurement (mass/volume)Ordered By: HEALTH ASSESSMENT on 02-01-2025 Creatinine [Mass/Vol] 0.99 mg/dL 0.70-1.20 [facility] Serum globulin measurementOr dered By: HEALTH ASSESSMENT on 02-01-2025 Globulin (S) [Mass/Vol] 3.0 g/dL 2.2-4.2 [facility] Serum glucose measurement (m ass/volume)Ordered By: HEALTH ASSESSMENT on 02-01-2025 Glucose [Mass/Vol] 96 mg/dL 70-99 [facility] Serum or plasma alanine jaffe otransferase (ALT) measurementOrdered By: HEALTH ASSESSMENT on 02-01-2025 ALT [Catalytic activity/Vol] 23 U/L <35 [facility] Serum or plasma albumin randy urement (mass/volume)Ordered By: HEALTH ASSESSMENT on 02-01-2025 Albumin [Mass/Vol] 4.1 g/dL 3.5-5.0 [facility] Serum or plasma albumin/glob ulin mass ratioOrdered By: HEALTH ASSESSMENT on 02-01-2025 Albumin/Globulin [Mass ratio] 1.4 {ratio} 0.9-2.4 [facility] Serum or plasma alkaline amry sphatase measurementOrdered By: HEALTH ASSESSMENT on 02-01-2025 ALP [Catalytic activity/Vol] 83 U/L 35-104 [facility] Serum or plasma calcium randy urement (mass/volume)Ordered By: HEALTH ASSESSMENT on 02-01-2025 Calcium [Mass/Vol] 9.2 mg/dL 7.6-11.0 [facility] Serum or plasma cholesterol in HDL measurement (mass/volume)Ordered By: HEALTH ASSESSMENT on 02-01-2025 Cholesterol in HDL [Mass/Vol] 55 mg/dL >40 [facility] Comment on above: National Cholesterol Education Program (NCEP) guidelines:<40 mg/dL: Low HDL-cholesterol (major risk factor for CHD)>= 60 mg/dL: High HDL-cholesterol (negative risk factor for CHD)HDL-cholesterol is affected by a number of factors, e.g. smoking, exercise, hormones, sex and age. Serum or plasma cholesterol measurement (mass/volume)Ordered By: HEALTH ASSESSMENT on 02-01-2025 Cholesterol [Mass/Vol] 201 mg/dL <201 [facility] Comment on above: Cholesterol level, D esirable <200 mg/dLBorderline high cholesterol 200-239 mg/dLHigh cholesterol >=240 mg/dLRecommendations of the NCEP Adult Treatment Panel for the following risk-cutoff thresholds for the [place] population. Serum or plasma urea nitroge n measurement (mass/volume)Ordered By: HEALTH ASSESSMENT on 02-01-2025 Urea nitrogen [Mass/Vol] 22 mg/dL High 4-19 [facility] Serum or plasma uric acid me asurement (mass/volume)Ordered By: HEALTH ASSESSMENT on 02-01-2025 Urate [Mass/Vol] 3.9 mg/dL 2.6-6.0 [facility] Comment on above: The drugs N-Acetylcy steine and Metamizole may falsely depress this assay. Sodium levelOrdered By: [facility] ASSESSMENT on 02-01-2025 Sodium [Moles/Vol] 141 mmol/L 133-145 [facility] Total proteinOrdered By: [facility] ASSESSMENT on 02-01-2025 Protein [Mass/Vol] 7.0 g/dL 5.9-8.4 [facility] Triglycerides measurementOrd ered By: HEALTH ASSESSMENT on 02-01-2025 Triglyceride [Mass/Vol] 130 mg/dL <199 [facility] Comment on above: The drugs N-Acetylcy steine and Metamizole may falsely depress this assay. Normal range: <150 mg/dLBorderline High: 150-199 mg/dLHigh: 200-499 mg/dLVery High: >500 mg/dL Urinalysis, Employeeon 02-01 BILIRUBIN URINE Normal Negative [facility] Comment on above: Order Comment: Urine , Random Result Comment: PT R EFUSED Performed By: #### L 100.0200, L400.0100, L500.2900 #### [facility] [address] [place], [place], [id number] Clarity (U) Normal Clear [facility] Comment on above: Order Comment: Urine , Random Result Comment: PT R EFUSED Performed By: #### L 100.0200, L400.0100, L500.2900 #### [facility] [address] [place], [place], [id number] Color (U) Normal Yellow [facility] Comment on above: Order Comment: Urine , Random Result Comment: PT R EFUSED Performed By: #### L 100.0200, L400.0100, L500.2900 #### [facility] [address] [place], [address] GLUCOSE, UR Normal Normal [facility] Comment on above: Order Comment: Urine , Random Result Comment: PT R EFUSED Performed By: #### L 100.0200, L400.0100, L500.2900 #### [facility] [address] [place], [address] KETONE UR Normal Negative [facility] Comment on above: Order Comment: Urine , Random Result Comment: PT R EFUSED Performed By: #### L 100.0200, L400.0100, L500.2900 #### [facility] [address] [place], [address] LEUK ESTERASE Normal Negative [facility] Comment on above: Order Comment: Urine , Random Result Comment: PT R EFUSED Performed By: #### L 100.0200, L400.0100, L500.2900 #### [facility] [address] [place], [address] Nitrite Ql (U) Normal Negative [facility] Comment on above: Order Comment: Urine , Random Result Comment: PT R EFUSED Performed By: #### L 100.0200, L400.0100, L500.2900 #### [facility] [address] [place], [address] OCCULT BLOOD-UR Normal Negative [facility] Comment on above: Order Comment: Urine , Random Result Comment: PT R EFUSED Performed By: #### L 100.0200, L400.0100, L500.2900 #### [facility] [address] [place], [address] pH UR Normal 5.0 - 8.0 [facility] Comment on above: Order Comment: Urine , Random Result Comment: PT R EFUSED Performed By: #### L 100.0200, L400.0100, L500.2900 #### [facility] [address] [place], [address] PROT DIPSTX Normal Negative [facility] Comment on above: Order Comment: Urine , Random Result Comment: PT R EFUSED Performed By: #### L 100.0200, L400.0100, L500.2900 #### [facility] [address] [place], [address] SP.GR. DIPSTX Normal 1.002-1.030 [facility] Comment on above: Order Comment: Urine , Random Result Comment: PT R EFUSED Performed By: #### L 100.0200, L400.0100, L500.2900 #### [facility] [address] [place], [address] UR Preservative Normal [facility] Comment on above: Order Comment: Urine , Random Result Comment: PT R EFUSED Performed By: #### L 100.0200, L400.0100, L500.2900 #### [facility] [address] [place], [address] UROBILI Normal Normal [facility] Comment on above: Order Comment: Urine , Random Result Comment: PT R EFUSED Performed By: #### L 100.0200, L400.0100, L500.2900 #### [facility] [address] [place], [address] White blood cell (WBC) count Ordered By: HEALTH ASSESSMENT on 02-01-2025 WBC (Bld) [#/Vol] 6.1 10*3/uL 4.4-11.0 [facility] Chest PA and Lateralon 01-24 Chest PA and Lateral [facility] Imaging Services [address] [place] [address] Chest PA and Lateral MR#: [id number] Acct: [id number] Name: SESTRELLITA Rep #: [id number] : 1970 F 54 From: Moris Cano MD PCP: Dr. Helen Avilez DO Status: REG CLI Study: Chest PA and Lateral Date of Exam: 01/24/25 Exam# [id number] Ordering Dr: Garrick Neves PA EXAM: XR [...] acute cardiopulmonary process. Reading Location: [facility] CC: Dr. Helen Avilez DO; SUMMER Cotto Brand Advocate: Signed Normal [facility] - Microbiology an d Antimicrobial susceptibilityOrdered By: Garrick Neves on 01-24-2025 SARS-CoV-2 (COVID-19) RNA REID+probe Ql (Unsp spec) Not detected [facility] No Panel InformationOrdered By: Garrick Neves on 01-24-2025 POC Nasal Swab Influenza A,B Not detected [facility] POC Nasal Swab RSV Not detected [facility] Office Visit Reporton [address] [facility] [address] [place] [address] OFFICE VISIT Date of Service: 01/24/25 MR#: [id number] Acct: [id number] Patient: ESTRELLITA GARCIA Rep #: [id number] : 1970 Provider: SUMMER Cotto Age/Sex: 54/F Location: [facility] Status: Signed Intake Vital Signs 07/25/24 12:27 [...] Cosigner Signature: Date (if applicable) CC: Normal [facility] Urgent Care Visit Reporton 0 01-24-2025 Urgent Care Visit Report [facility] [address] [place] [address] OFFICE VISIT Date of Service: 01/24/25 MR#: [id number] Acct: [id number] Name: ESTRELLITA GARCIA Rep #: [id number] : 1970 Provider: SUMMER Cotto Age/Sex: 54/F Location: [facility] Status: Signed Intake Vital Signs 07/25/24 12:27 [...] tablet 90 mg PO MOTUTHFRSA 10/25/1801/24 History ([place] Thyroid) venlafaxine 37.5 mg 75 mg PO [...] in her right lung coming home from [place]. Patient has no SOB or wheezing. [facility] Medical History (Updated 09/26/24 @ 09:40 by [...] right lung fullness upon coming home from [place] around the same time. Patient notes no complaints of fever, chills, sweats, lightheadedness/dizzi ness, emesis/diarrhea, or shortness of breath though appreciates scant wheezing on occasion. Patient is concerned as she has been exposed to coworker with COVID-19 and would like to be screened for the same. No yadk-tfa-dzanhhh Proxima taken to assist. No other associated [...] Auscultation Cardio (more content not included)... Normal [facility] Gastroenterology Visit Repor ton 09-26-2024 Gastroenterology Visit Report [facility] Gastroenterology [address] [place] [address] OFFICE VISIT Date of Service: 09/26/24 MR#: [id number] Acct: [id number] Name: ESTRELLITA GARCIA Rep #: [id number] : 1970 Provider: SUMMER Michaels Age/Sex: 54/F Location: [facility] Status: Signed Intake Vital Signs 03/31/24 15:57 [...] week. Continues omeprazole daily. Recently started Mounjaro. [facility] Medical History (Updated 09/26/24 @ 09:40 by [...] is constipat (more content not included)... Normal [facility] EGD Reporton 07-25-2024 EGD Report [facility] Medical Records Department [address] [place] [address] EGD Report MR#: [id number] Acct: [id number] Name: ESTRELLITA GARCIA Rep #: [id number] : 1970 53 From: Bebeto Mcadams DO PCP: Dr. Helen Avilez DO Status:REG [facility] Patient Name: Estrellita Garcia Procedure Date: 07/25/2024 [...] pathology results. Procedure Code(s): --- Professional --- 61072, Esophagogastroduodeno scopy, flexible, transoral; with biopsy, single or multiple CPT copyright 2021 [employer]. All rights reserved. The codes documented in this report are preliminary and upon mailroom clerk review may be revised to meet current compliance requirements. Bebeto Mcadams DO 07/25/2024 7:23:36 AM This report has been signed electronically. Number of Addenda: 0 Note Initiated On: 07/25/2024 6:59 AM 07/25/24 0723 Date Bebeto Mcadams DO Cosigner Signature: Date (if indicated) CC: Dr. Helen Avilez DO; Bebeto Mcadams DO Date Dictated: 07/25/24 0659 Date Transcribed: Brand Advocate: LO Signed Normal [facility] Low Dose CT Lung Screeningon 07-25-[address] Lung Screening [facility] Imaging Services [address] [place] [id number] Lung Screening MR#: [id number] Acct: [id number] Name: MASTERSESTRELLITA Rep #: [id number] : 1970 F 53 From: Arvin Woodward MD PCP: Dr. Helen Avilez DO Status: [facility] Study: Low Dose CT Lung Screening Date of Exam: 07/25 Exam# [id number] Ordering Dr: Tamia Still NP, [place] [id number] EXAM: CT CHEST, LUNG CANCER SCREENING WITHOUT [...] CC: BESS Still; Dr. Helen Avilez DO Brand Advocate: Signed [facility] MR/POSTOP.Yana 07-25-2024 [facility]OP[facility] Medical Records Department [address] [place] [address] Anesthesia Postop Eval I 07/25/24726 MR#: [id number] Acct: [id number] Name: ESTRELLITA GARCIA Rep #: [id number] : 1970 53 From: Roque Rick PCP: Dr. Helen Avilez, DO Status:REG SDC Y Race: C Location: [place] [address] Anesthesia: Postop Eval I Current Vital Signs [...] Roque Carter Signature: Date CC: Signed Normal [facility] MR/[id number] 07-25-2024 [facility] Medical Records Department [address] [place] [address] Anesthesia Postop Eval II 07/25/2442 MR#: [id number] Acct: [id number] Name: ESTRELLITA GARCIA Rep #: [id number] : 1970 53 From: Gil Hampton MD PCP: Dr. Helen Avilez, DO Status:REG SDC Y Race: C Location: [place] [address] Anesthesia Postop Eval I Sum Postop Eval [...] MD Cosigner Signature: Date CC: Signed Normal [facility] Oncology Visit Reporton Oncology Visit Report [facility] [place] [facility] [address] [place] [address] OFFICE VISIT Date of Service: 07/25/24 1224 MR#: [id number] Acct: [id number] Name: ESTRELLITA GARCIA Rep #: [id number] : 1970 From: Tamia Still NP HATCH [employer]ER -C Age/Sex: 53/F Location: [facility] Status: Signed HPI HPI Reviewed eligibility criteria: [...] 90 mg PO MOTUTHFRSA 10/25/18 07/25/24 History ([place] Thyroid) venlafaxine 37.5 mg 75 mg PO [...] .TWICE WEE (more content not included)... Normal [facility] Special Stain Group Ion 10-0 Special Stain Group I --- -------- Patient Age/Sex Location Account Attending Physician -------- ESTRELLITA GARCIA 53/F EN [id number] Bebeto Mcadams DO -------- Specimen: [id number] Received: 07/25/24 Status: RICARDO Hong Num: [id number] Spec Type: EGD BIOPSY Subm Dr: Bebeto [...] totally submitted in one cassette. 07/25/2024 TC:3 CPT:60855,72790 -------- Patient Age/Sex Location Account Attending Physician -------- ESTRELLITA GARCIA 53/F EN [id number] Bebeto Mcadams, DO -------- Signed (signature on file) Dr. Kelechi Choi MD 07/26/24 1147 -------- [facility] Comment on above: Performed By: #### P SSI #### [facility] [address], [address] No Panel InformationOrdered By: Helen Avilez on 11-10-2023 Free Triiodothyronine (T3) pg/dL 3.0 pg/mL 2.18-3.98 [facility] Serum or plasma thyroid stim ulating hormone (TSH) measurement (units/volume)Ordered By: Helen Avilez on 11-10-2023 TSH Qn 0.68 uIU/mL 0.358-3.74 [facility] Thin prep Papanicolaou smear with manual screeningOrdered By: Helen Avilez on 11-10-2023 Thin prep Papanicolaou smear with manual screening 0.67 ng/dL 0.76-1.46 [facility] - Microbiology an d Antimicrobial susceptibilityon 11-01-2023 S. pyogenes Ag IA Ql (Unsp spec) Negative [facility] - Chemistry and C hemistry - challengeOrdered By: Helen Avilez on 08-30-2023 Free T4 [Mass/Vol] 0.80 ng/dL 0.76-1.46 [facility] No Panel InformationOrdered By: Helen Avilez on 08-30-2023 Free Triiodothyronine (T3) pg/dL 3.4 pg/mL 2.18-3.98 [facility] Thyroid Stimulating Hormone (TSH) 0.04 uIU/mL 0.358-3.74 [facility] Serum or plasma estradiol (E 2) measurement (mass/volume)Ordered By: Helen Avilez on 08-30-2023 E2 [Mass/Vol] pg/mL [facility] Comment on above: NORMAL REFERENCE RAN GES [...] 08-30-2023 Progesterone [Mass/Vol] 0.24 ng/mL See Comment [facility] Comment on above: Progesterone Referen ce Table: [...] Auto (Unsp spec) [#/Vol] 1.54 10*3/uL 0.83-4.51 [facility] Absolute reticulocyte countO rdered By: HEALTH ASSESSMENT on 06-10-2023 Reticulocytes (Bld) [#/Vol] 0.00 10*3/uL 0-5 [facility] Basophil percentageOrdered B y: HEALTH ASSESSMENT on 06-10-2023 Basophil percentage 3.7 mg/dL 2.5-4.9 [facility] Bilirubin [Mass/Vol] 0.70 mg/dL 0.20-1.00 [facility] Comment on above: For patients on eltr ombopag therapy, use of Dimension Counce TBIL is not recommended. Chloride [Moles/Vol] 110 mmol/L 98-107 [facility] Cholesterol [Mass/Vol] 289 mg/dL <200 [facility] Comment on above: <200 mg/dL Desirable 200-240 mg/dL Borderline >240 mg/dL High Risk Glucose [Mass/Vol] 102 mg/dL 74-106 [facility] Comment on above: Fasting Glucose resu lt from 100 to 125 mg/dL suggests IMPAIRED HOMEOSTASIS per A.D.A. criteria. LDH [Catalytic activity/Vol] 159 U/L 84-246 [facility] Neutrophils (Bld) [#/Vol] 1.8 10*3/uL 2.0-7.7 [facility] Potassium [Moles/Vol] 4.1 mmol/L 3.5-5.1 [facility] Protein [Mass/Vol] 7.5 g/dL 6.4-8.2 [facility] Sodium [Moles/Vol] 140 mmol/L 136-145 [facility] Triglyceride [Mass/Vol] 76 mg/dL <199 [facility] Comment on above: The drugs N-Acetylcy steine and Metamizole may falsely depress this assay.Serum Triglycerides Reference Interval Normal <150 mg/dL Borderline high 150 - 199 mg/dL High 200 - 499 mg/dL Very High > or = 500 mg/dL WBC (Bld) [#/Vol] 4.1 10*3/uL 4.4-11.0 [facility] Bilirubin Test strip Ql (U)O rdered By: HEALTH ASSESSMENT on 06-10-2023 Bilirubin Ql (U) 1 mg/dL Negative [facility] Comment on above: COLOR OF URINE MAY A FFECT DIPSTICK RESULTS. Blood erythrocytes count (nu mber/volume)Ordered By: HEALTH ASSESSMENT on 06-10-2023 RBC (Bld) [#/Vol] 4.57 10*6/uL 4.2-5.4 [facility] Blood hemoglobin measurement (mass/volume)Ordered By: HEALTH ASSESSMENT on 06-10-2023 Hemoglobin (Bld) [Mass/Vol] 13.5 g/dL 12.0-15.0 [facility] Blood platelet mean volumeOr dered By: HEALTH ASSESSMENT on 06-10-2023 Platelet mean volume (Bld) [Entitic vol] 9.7 fL 6.2-12.0 [facility] Determination of erythrocyte mean corpuscular volume (MCV)Ordered By: HEALTH ASSESSMENT on 06-10-2023 MCV (RBC) [Entitic vol] 89.7 fL 81-99 [facility] Direct bilirubinOrdered By: HEALTH ASSESSMENT on 06-10-2023 Bilirubin.direct [Mass/Vol] 0.14 mg/dL 0.00-0.30 [facility] Hematocrit Auto (Bld) [Volum e fraction]Ordered By: HEALTH ASSESSMENT on 06-10-2023 Hematocrit (Bld) [Volume fraction] 41.0 % 37-47 [facility] Ketones Test strip Ql (U)Ord ered By: HEALTH ASSESSMENT on 06-10-2023 Ketones Ql (U) 15 mg/dl Negative [facility] - Chemistry and C hemistry - challengeOrdered By: HEALTH ASSESSMENT on 06-10-2023 ALP [Catalytic activity/Vol] 69 U/L 45-117 [facility] ALT [Catalytic activity/Vol] 21 U/L 13-56 [facility] Cholesterol.total/Choles terol in HDL [Mass ratio] 4.50 {ratio} [facility] CO2 [Moles/Vol] 23.0 mmol/L 21.0-32.0 [facility] Globulin (S) [Mass/Vol] 3.7 g/dL 2.2-4.2 [facility] Urea nitrogen/Creatinine [Mass ratio] 25.5 mg/mg 10-20 [facility] - Hematology and Cell countsOrdered By: HEALTH ASSESSMENT on 06-10-2023 Erythrocyte distribution width (RBC) [Entitic vol] 46.3 fL 35.1-43.9 [facility] Erythrocyte distribution width (RBC) [Ratio] 14.0 % 11.6-14.6 [facility] MCH (RBC) [Entitic mass] 29.5 pg 27.0-32.0 [facility] Nucleated RBC/100 WBC (Bld) [Ratio] 0 % 0-5 [facility] MCHC Auto (RBC) [Mass/Vol]Or dered By: HEALTH ASSESSMENT on 06-10-2023 MCHC (RBC) [Mass/Vol] 32.9 g/dL 32-36 [facility] Nitrite Test strip Ql (U)Ord ered By: HEALTH ASSESSMENT on 06-10-2023 Nitrite Ql (U) Negative Negative [facility] No Panel InformationOrdered By: HEALTH ASSESSMENT on 06-10-2023 Estimated GFR (MDRD) Amer 85 mL/min >60 [facility] Comment on above: GFR Calc Estimated GFR (MDRD) Non-Af Amer 70 mL/min >60 [facility] Comment on above: Non- GFR Calc Platelets bldOrdered By: ENRIQUETA [facility] ASSESSMENT on 06-10-2023 Platelets (Bld) [#/Vol] 271 10*3/uL 150-450 [facility] Protein Test strip Ql (U)Ord ered By: HEALTH ASSESSMENT on 06-10-2023 Protein Ql (U) 15 mg/dl Negative [facility] Segmented neutrophils/100 WB C Auto (Bld)Ordered By: HEALTH ASSESSMENT on 06-10-2023 Segmented neutrophils/100 WBC (Bld) 43.4 % 47-70 [facility] Serum or plasma albumin randy urement (mass/volume)Ordered By: HEALTH ASSESSMENT on 06-10-2023 Albumin [Mass/Vol] 3.8 g/dL 3.2-5.0 [facility] Serum or plasma albumin/glob ulin mass ratioOrdered By: HEALTH ASSESSMENT on 06-10-2023 Albumin/Globulin [Mass ratio] 1.0 {ratio} 0.9-2.4 [facility] Serum or plasma calcium randy urement (mass/volume)Ordered By: HEALTH ASSESSMENT on 06-10-2023 Calcium [Mass/Vol] 9.3 mg/dL 8.5-10.1 [facility] Serum or plasma cholesterol in HDL measurement (mass/volume)Ordered By: HEALTH ASSESSMENT on 06-10-2023 Cholesterol in HDL [Mass/Vol] 64 mg/dL >40 [facility] Comment on above: The drugs N-Acetylcy steine and Metamizole may falsely depress this assay. Reference Range HDL <40 mg/dL Low HDL Cholesterol HDL >or= 60 mg/dL High HDL Cholesterol Serum or plasma cholesterol in VLDL measurement (mass/volume)Ordered By: HEALTH ASSESSMENT on 06-10-2023 Cholesterol in VLDL [Mass/Vol] 15 mg/dL 5-40 [facility] Serum or plasma creatinine m easurement (mass/volume)Ordered By: HEALTH ASSESSMENT on 06-10-2023 Creatinine [Mass/Vol] 0.90 mg/dL 0.55-1.02 [facility] Comment on above: The validity of the calculated GFR & GFRAA in patients over 70 years has not been determined. Clinical correlation is essential. Serum or plasma low density lipoprotein (LDL) cholesterol measurement (mass/volume)Ordered By: HEALTH ASSESSMENT on 06-10-2023 Cholesterol in LDL [Mass/Vol] 210 mg/dL 0-130 [facility] Serum or plasma urea nitroge n measurement (mass/volume)Ordered By: HEALTH ASSESSMENT on 06-10-2023 Urea nitrogen [Mass/Vol] 23 mg/dL 7-18 [facility] Serum or plasma uric acid me asurement (mass/volume)Ordered By: HEALTH ASSESSMENT on 06-10-2023 Urate [Mass/Vol] 3.8 mg/dL 2.6-6.0 [facility] Comment on above: The drugs N-Acetylcy steine and Metamizole may falsely depress this assay. Thin prep Papanicolaou smear with manual screeningOrdered By: HEALTH ASSESSMENT on 06-10-2023 Thin prep Papanicolaou smear with manual screening 13 U/L 15-37 [facility] Thin prep Papanicolaou smear with manual screening 7 5-15 [facility] Urine blood detectionOrdered By: HEALTH ASSESSMENT on 06-10-2023 RBC Ql (U) 25 /ul Negative [facility] Urine clarityOrdered By: A [facility] ASSESSMENT on 06-10-2023 Clarity (U) Clear Clear [facility] Urine color determinationOrd ered By: HEALTH ASSESSMENT on 06-10-2023 Color (U) Yellow Yellow [facility] Urine glucose detectionOrder ed By: HEALTH ASSESSMENT on 06-10-2023 Glucose Ql (U) Normal mg/dl Normal [facility] Urine leukocyte esterase det ection by dipstickOrdered By: HEALTH ASSESSMENT on 06-10-2023 Leukocyte esterase Test strip Ql (U) Negative Negative [facility] Urine pHOrdered By: HEALTH A SSESSMENT on 06-10-2023 pH (U) 5.0 [pH] 5.0 - 8.0 [facility] Urine specific gravity measu rementOrdered By: HEALTH ASSESSMENT on 06-10-2023 Specific gravity (U) [Rel density] 1.025 1.002-1.030 [facility] Urobilinogen Auto test strip Ql (U)Ordered By: HEALTH ASSESSMENT on 06-10-2023 Urobilinogen Ql (U) Normal mg/dl Normal [facility] Laboratory - Chemistry and C hemistry - challengeOrdered By: Helen Avilez on 04-29-2023 Free T4 [Mass/Vol] 0.72 ng/dL 0.76-1.46 [facility] No Panel InformationOrdered By: Helen Avilez on 04-29-2023 Free Triiodothyronine (T3) pg/dL 2.3 pg/mL 2.18-3.98 [facility] Thyroid Stimulating Hormone (TSH) 0.28 uIU/mL 0.358-3.74 [facility] Reporton 2022 [facility] Report . Pathology Reports Accession: Collected Date/Time: Received Date/Time: Pathologist: [id number] 02/10/2023 09:12 EDT 02/10/2023 18:00 EDT MD CHRIS RETANA [facility] Report SPECIMEN: Specimen Description: Liquid Prep [...] and evaluated with the assistance of the [employer] ThinPrep Test Imaging System. Pathology Reports Accession: Collected Date/Time: Received Date/Time: Pathologist: [id number] 02/10/2023 09:12 EDT 02/10/2023 18:00 MD CHRIS REYES Electronically Signed by Pathology report verified by [facility] Screened by: JEAN CARLOS Electronically signed by CHRIS RETANA MD Sign-Out Date: 02/16/2023 15:41 Performing Lab: [facility], [address] [place] [address] Pathology Dept Disclaimer The Pap test is a screening test for cervical cancer. As evidenced by published data, it is subject to both inherent false negative and false positive results. Your patient's results should be interpreted in context with pertinent clinical history including gynecological examination. Normal [facility] HPVon 02-16-2023 HPV Interp Normal See Interp HPVN [facility] Comment on above: Order Comment: Order placed by AP_HPV_ORDER rule from [id number] Result Comment: High Risk HPV Typing: NEGATIVE [...] HPVN Performed By: #### H PV #### [place] [address] HPV Source Cervix Normal [facility] Comment on above: Order Comment: Order placed by AP_HPV_ORDER rule from [id number] Performed By: #### H PV #### [place] [id number] CNOVon 10-20-2022 CNOV Office Visit (UCWSTR ) ESTRELLITA GARCIA ([id number]) 1970 F Date Time Provider Department 10/20/22 4:15 PM [facility] [facility] During your visit today, we recorded the following information about you: Temperature Pulse Respiration Blood pressure 99.1 degrees 88/minute 18/minute 128/80 Weight 89.4 kg Ambreen Chaparro PA-C 10/20/2022 5:21 PM Signed This note was created using iHighriter. Subjective Estrellita Garcia is a 52 year [...] a prescription for this. She has used putp-[id number]-tubtmwd cold medications with minimal relief. She has [...] 10/20/2022 R (more content not included)... Normal [facility] Absolute lymphocyte counton 06-30-2022 Lymphocytes Auto (Unsp spec) [#/Vol] 1.65 10*3/uL 0.83-4.51 [facility] Work Phone: Absolute reticulocyte counto n 06-30-2022 Reticulocytes (Bld) [#/Vol] 0.00 10*3/uL 0-5 [facility] Work Phone: Basophil percentageon 2021 Basophil percentage 4.0 mg/dL 2.5-4.9 [facility] Work Phone: Bilirubin [Mass/Vol] 0.30 mg/dL 0.20-1.00 [facility] Work Phone: Comment on above: For patients on eltr ombopag therapy, use of Dimension Counce TBIL is not recommended. Chloride [Moles/Vol] 106 mmol/L 98-107 [facility] Work Phone: Cholesterol [Mass/Vol] 188 mg/dL <200 [facility] Work Phone: Comment on above: <200 mg/dL Desirable 200-240 mg/dL Borderline >240 mg/dL High Risk Glucose [Mass/Vol] 101 mg/dL 74-106 [facility] Work Phone: Comment on above: Fasting Glucose resu lt from 100 to 125 mg/dL suggests IMPAIRED HOMEOSTASIS per A.D.A. criteria. Neutrophils (Bld) [#/Vol] 1.9 10*3/uL 2.0-7.7 [facility] Work Phone: Potassium [Moles/Vol] 4.3 mmol/L 3.5-5.1 [facility] Work Phone: Protein [Mass/Vol] 7.0 g/dL 6.4-8.2 [facility] Work Phone: Sodium [Moles/Vol] 142 mmol/L 136-145 [facility] Work Phone: Triglyceride [Mass/Vol] 69 mg/dL <199 [facility] Work Phone: Comment on above: The drugs N-Acetylcy steine and Metamizole may falsely depress this assay.Serum Triglycerides Reference Interval Normal <150 mg/dL Borderline high 150 - 199 mg/dL High 200 - 499 mg/dL Very High > or = 500 mg/dL WBC (Bld) [#/Vol] 4.2 10*3/uL 4.4-11.0 [facility] Work Phone: Blood erythrocytes count (nu mber/volume)on 06-30-2022 RBC (Bld) [#/Vol] 4.29 10*6/uL 4.2-5.4 [facility] Work Phone: Blood hemoglobin measurement (mass/volume)on 06-30-2022 Hemoglobin (Bld) [Mass/Vol] 12.8 g/dL 12.0-15.0 [facility] Work Phone: Blood platelet mean volumeon 06-30-2022 Platelet mean volume (Bld) [Entitic vol] 9.6 fL 6.2-12.0 [facility] Work Phone: Determination of erythrocyte mean corpuscular volume (MCV)on 06-30-2022 MCV (RBC) [Entitic vol] 91.1 fL 81-99 [facility] Work Phone: Direct bilirubinon 2 Bilirubin.direct [Mass/Vol] 0.07 mg/dL 0.00-0.30 [facility] Work Phone: Hematocrit Auto (Bld) [Volum e fraction]on 06-30-2022 Hematocrit (Bld) [Volume fraction] 39.1 % 37-47 [facility] Work Phone: Laboratory - Chemistry and C hemistry - challengeon 06-30-2022 ALP [Catalytic activity/Vol] 52 U/L 45-117 [facility] Work Phone: ALT [Catalytic activity/Vol] 21 U/L 13-56 [facility] Work Phone: Cholesterol.total/Choles terol in HDL [Mass ratio] 2.80 {ratio} [facility] Work Phone: CO2 [Moles/Vol] 28.0 mmol/L 21.0-32.0 [facility] Work Phone: [phone] Globulin (S) [Mass/Vol] 3.4 g/dL 2.2-4.2 [facility] Work Phone: Urea nitrogen/Creatinine [Mass ratio] 22.5 mg/mg 10-20 [facility] Work Phone: Free T4 [Mass/Vol] 0.58 ng/dL 0.76-1.46 [facility] Work Phone: Laboratory - Hematology and Cell countson 06-30-2022 Erythrocyte distribution width (RBC) [Entitic vol] 40.4 fL 35.1-43.9 [facility] Work Phone: Erythrocyte distribution width (RBC) [Ratio] 12.1 % 11.6-14.6 [facility] Work Phone: MCH (RBC) [Entitic mass] 29.8 pg 27.0-32.0 [facility] Work Phone: Nucleated RBC/100 WBC (Bld) [Ratio] 0 % 0-5 [facility] Work Phone: MCHC Auto (RBC) [Mass/Vol]on 06-30-2022 MCHC (RBC) [Mass/Vol] 32.7 g/dL 32-36 [facility] Work Phone: No Panel Informationon 06-30 Estimated GFR (MDRD) Amer 81 mL/min >60 [facility] Work Phone: Comment on above: GFR Calc Estimated GFR (MDRD) Non-Af Amer 67 mL/min >60 [facility] Work Phone: Comment on above: Non- GFR Calc Free Triiodothyronine (T3) pg/dL 2.9 pg/mL 2.18-3.98 [facility] Work Phone: Thyroid Stimulating Hormone (TSH) 0.48 uIU/mL 0.358-3.74 [facility] Work Phone: Platelets bldon 06-30-2022 Platelets (Bld) [#/Vol] 281 10*3/uL 150-450 [facility] Work Phone: Segmented neutrophils/100 WB C Auto (Bld)on 06-30-2022 Segmented neutrophils/100 WBC (Bld) 44.5 % 47-70 [facility] Work Phone: Serum or plasma albumin randy urement (mass/volume)on 06-30-2022 Albumin [Mass/Vol] 3.6 g/dL 3.2-5.0 [facility] Work Phone: Serum or plasma albumin/glob ulin mass ratioon 06-30-2022 Albumin/Globulin [Mass ratio] 1.1 {ratio} 0.9-2.4 [facility] Work Phone: Serum or plasma calcium randy urement (mass/volume)on 06-30-2022 Calcium [Mass/Vol] 8.9 mg/dL 8.5-10.1 [facility] Work Phone: Serum or plasma cholesterol in HDL measurement (mass/volume)on 06-30-2022 Cholesterol in HDL [Mass/Vol] 68 mg/dL >40 [facility] Work Phone: Comment on above: The drugs N-Acetylcy steine and Metamizole may falsely depress this assay. Reference Range HDL <40 mg/dL Low HDL Cholesterol HDL >or= 60 mg/dL High HDL Cholesterol Serum or plasma cholesterol in VLDL measurement (mass/volume)on 06-30-2022 Cholesterol in VLDL [Mass/Vol] 14 mg/dL 5-40 [facility] Work Phone: Serum or plasma creatinine m easurement (mass/volume)on 06-30-2022 Creatinine [Mass/Vol] 0.94 mg/dL 0.55-1.02 [facility] Work Phone: Comment on above: The validity of the calculated GFR & GFRAA in patients over 70 years has not been determined. Clinical correlation is essential. Serum or plasma low density lipoprotein (LDL) cholesterol measurement (mass/volume)on 06-30-2022 Cholesterol in LDL [Mass/Vol] 106 mg/dL 0-130 [facility] Work Phone: Serum or plasma urea nitroge n measurement (mass/volume)on 06-30-2022 Urea nitrogen [Mass/Vol] 21 mg/dL 7-18 [facility] Work Phone: Serum or plasma uric acid me asurement (mass/volume)on 06-30-2022 Urate [Mass/Vol] 4.1 mg/dL 2.6-6.0 [facility] Work Phone: Comment on above: The drugs N-Acetylcy steine and Metamizole may falsely depress this assay. Thin prep Papanicolaou smear with manual screeningon 06-30-2022 Thin prep Papanicolaou smear with manual screening 13 U/L 15-37 [facility] Work Phone: Thin prep Papanicolaou smear with manual screening 8 5-15 [facility] Work Phone: Thin prep Papanicolaou smear with manual screening 159 U/L 84-246 [facility] Work Phone: Laboratory - Microbiology an d Antimicrobial susceptibilityon 05-23-2022 SARS-CoV-2 (COVID-19) RNA REID+probe Ql (Unsp spec) Detected [facility] Work Phone: No Panel Informationon 05-23 Influenza Types A,B Rapid (Clinic) Not detected [facility] Work Phone: Laboratory - Microbiology an d Antimicrobial susceptibilityon 03-03-2022 SARS-CoV-2 (COVID-19) RNA REID+probe Ql (Unsp spec) Not detected [facility] Work Phone: No Panel Informationon 03-03 Influenza Types A,B Rapid (Clinic) Not detected [facility] Work Phone: NOVEL CORONAVIRUS NASOPHARYN GEAL - [facility] SPECIMEN ONLYon 11-26-2020 SARS-CoV-2 (COVID-19) RNA REID+probe Ql (Unsp spec) Not detected Normal NOT DETECTED [facility] Comment on above: Order Comment: Submi tter Name: [facility] Agent Suspected: SARS-COV-2 This test was performed [...] or clinically deteriorating. Performed By: #### L [id number] #### [facility] (DEFAULT) [address] [place] [id number] Vital Signs Date Time Vital Sign Value Performing Clinician Facility 01-24-2025 09:33-0400 Body height 170.[address] Helen Avilez DO Work Phone: [facility] 01-24-2025 09:33-0400 Body mass index (BMI) [Ratio] 29.9 kg/m2 Dr. Helen Avilez DO Work Phone: [facility] 01-24-2025 09:33-0400 Body temperature 98 [degF] Dr. Helen Avilez DO Work Phone: [facility] 01-24-2025 09:33-0400 Body weight 86.[address] Helen Avilez DO Work Phone: [facility] 01-24-2025 09:33-0400 Diastolic blood pressure 66 mm[Hg] Dr. Helen Avilez DO Work Phone: [facility] 01-24-2025 09:33-0400 Heart rate 76 /min Dr. Helen Avilez DO Work Phone: [facility] 01-24-2025 09:33-0400 SaO2% (BldA) [Mass fraction] 98 % Dr. Helen Avilez DO Work Phone: [facility] 01-24-2025 09:33-0400 Systolic blood pressure 102 mm[Hg] Dr. Helen Avilez DO Work Phone: [facility] 01-25-2024 12:04-0400 Body height 170.[address] Helen Avilez Work Phone: [facility] 01-25-2024 12:04-0400 Body mass index (BMI) [Ratio] 33.4 kg/m2 Dr. Helen Avilez Work Phone: [facility] 01-25-2024 12:04-0400 Body temperature 98.2 [degF] Dr. Helen Avilez Work Phone: [facility] 01-25-2024 12:04-0400 Body weight 96.[address] Helen Avilez Work Phone: [facility] 01-25-2024 12:04-0400 Diastolic blood pressure 73 mm[Hg] Dr. Helen Avilez Work Phone: [facility] 01-25-2024 12:04-0400 Heart rate 66 /min Dr. Helen Avilez Work Phone: [facility] 01-25-2024 12:04-0400 Respiratory rate 16 /min Dr. Helen Avilez Work Phone: [facility] 01-25-2024 12:04-0400 SaO2% (BldA) [Mass fraction] 97 % Dr. Helen Avilez Work Phone: [facility] 01-25-2024 12:04-0400 Systolic blood pressure 118 mm[Hg] Dr. Helen Avilez Work Phone: [facility] 11-01-2023 09:20-0500 Body height 170.[address] Helen Avilez Work Phone: [facility] 11-01-2023 09:20-0500 Body mass index (BMI) [Ratio] 31.3 kg/m2 Dr. Helen Avilez Work Phone: [facility] 11-01-2023 09:20-0500 Body temperature 98.7 [degF] Dr. Helen Avilez Work Phone: [facility] 11-01-2023 09:20-0500 Body weight 90.[address] Helen Avilez Work Phone: [facility] 11-01-2023 09:20-0500 Diastolic blood pressure 102 mm[Hg] Dr. Helen Avilez Work Phone: [facility] 11-01-2023 09:20-0500 Heart rate 119 /min Dr. Helen Avilez Work Phone: [facility] 11-01-2023 09:20-0500 Respiratory rate 16 /min Dr. Helen Avilez Work Phone: [facility] 11-01-2023 09:20-0500 SaO2% (BldA) [Mass fraction] 98 % Dr. Helen Avilez Work Phone: [facility] 11-01-2023 09:20-0500 Systolic blood pressure 142 mm[Hg] Dr. Helen Avilez Work Phone: [facility] 10-20-2022 16:21-0500 Body temperature 99.1 [degF] Ambreen Athy PA-C Work Phone: [facility] 10-20-2022 16:21-0500 Body weight 89.36 kg Ambreen Athy PA-C Work Phone: [facility] 10-20-2022 16:21-0500 Diastolic blood pressure 80 mm[Hg] Ambreen Athy PA-C Work Phone: [facility] 10-20-2022 16:21-0500 Heart rate 88 /min Ambreen Athy PA-C Work Phone: [facility] 10-20-2022 16:21-0500 Respiratory rate 18 /min Ambreen Athy PA-C Work Phone: [facility] 10-20-2022 16:21-0500 SaO2% (BldA) [Mass fraction] 96 % Ambreen Athy PA-C Work Phone: [facility] 10-20-2022 16:21-0500 Systolic blood pressure 128 mm[Hg] Ambreen Athy PA-C Work Phone: [facility] 10-13-2022 07:56-0500 Body temperature 100.1 [degF] Dr. Helen Avilez Work Phone: [facility] Work Phone: 10-13-2022 07:56-0500 Diastolic blood pressure 74 mm[Hg] Dr. Helen Avilez Work Phone: [facility] Work Phone: 10-13-2022 07:56-0500 Heart rate 97 /min Dr. Helen Avilez Work Phone: [facility] Work Phone: 10-13-2022 07:56-0500 Respiratory rate 16 /min Dr. Helen Avilez Work Phone: [facility] Work Phone: 10-13-2022 07:56-0500 SaO2% (BldA) [Mass fraction] 98 % Dr. Helen Avilez Work Phone: [facility] Work Phone: 10-13-2022 07:56-0500 Systolic blood pressure 124 mm[Hg] Dr. Helen Avilez Work Phone: [facility] Work Phone: 05-23-2022 13:30-0400 Body temperature 98.4 [degF] Dr. Helen Avilez Work Phone: [facility] Work Phone: 05-23-2022 13:30-0400 Diastolic blood pressure 80 mm[Hg] Dr. Helen Avilez Work Phone: [facility] Work Phone: 05-23-2022 13:30-0400 Heart rate 79 /min Dr. Helen Avilez Work Phone: [facility] Work Phone: 05-23-2022 13:30-0400 Respiratory rate 14 /min Dr. Helen Avilez Work Phone: [facility] Work Phone: 05-23-2022 13:30-0400 SaO2% (BldA) [Mass fraction] 99 % Dr. Helen Avilez Work Phone: [facility] Work Phone: 05-23-2022 13:30-0400 Systolic blood pressure 120 mm[Hg] Dr. Helen Avilez Work Phone: [facility] Work Phone: 03-26-2022 08:47-0400 Body temperature 98.4 [degF] Dr. Helen Avilez Work Phone: [facility] Work Phone: 03-26-2022 08:47-0400 Diastolic blood pressure 74 mm[Hg] Dr. Helen Avilez Work Phone: [facility] Work Phone: 03-26-2022 08:47-0400 Heart rate 86 /min Dr. Helen Avilez Work Phone: [facility] Work Phone: 03-26-2022 08:47-0400 Respiratory rate 14 /min Dr. Helen Avilez Work Phone: [facility] Work Phone: 03-26-2022 08:47-0400 SaO2% (BldA) [Mass fraction] 98 % Dr. Helen Avilez Work Phone: [facility] Work Phone: 03-26-2022 08:47-0400 Systolic blood pressure 116 mm[Hg] Dr. Helen Avilez Work Phone: [facility] Work Phone: 03-03-2022 10:55-0400 Body height 170.[address] Helen Avilez Work Phone: [facility] Work Phone: 03-02-2022 09:54-0400 Body mass index (BMI) [Ratio] 29.2 kg/m2 Dr. Helen Avilez Work Phone: [facility] Work Phone: 03-02-2022 09:54-0400 Body weight 84.[address] Helen Avilez Work Phone: [facility] Work Phone: 03-02-2022 09:54-0400 Diastolic blood pressure 73 mm[Hg] Dr. Helen Avilez Work Phone: [facility] Work Phone: 03-02-2022 09:54-0400 Respiratory rate 18 /min Dr. Helen Avilez Work Phone: [facility] Work Phone: 03-02-2022 09:54-0400 Systolic blood pressure 122 mm[Hg] Dr. Helen Avilez Work Phone: [facility] Work Phone: Encounters Encounter Date Encounter Type Care Provider Facility Start: 07-31-2025 ambulatory Tamia Still NP Facil ity:[facility] Start: 03-26-2025 End: 03-26-[address] Helen Avilez DO Work Phone: [facility] Work Phone: Start: 03-26-2025 End: 03-26-2025 Patient encounter procedure Myriam Liu HATCH TENDER-C -Outpatient Breast Imaging Work Phone: Start: 03-26-2025 End: 03-26-2025 ambulatory Myriam Liu Facility:[facility] Start: 03-13-2025 End: 03-13-2025 Patient encounter procedure Argenis WHEELER -[facility] Work Phone: Start: 03-13-2025 End: 03-13-[address] Helen Avilez DO Work Phone: [facility] Work Phone: Start: 02-27-2025 End: 02-27-[address] Helen Avilez DO Work Phone: [facility] Work Phone: Start: 02-27-2025 End: 02-27-2025 Patient encounter procedure Myriam Liu HATCH TENDER-C -Ultrasound, [facility] Work Phone: Start: 02-27-2025 End: 02-27-2025 ambulatory Myriam Liu Facility:[facility] Start: 02-16-2025 End: 02-16-[address] Helen Avilez DO -Laboratory Work Phone: Start: 02-16-2025 End: 02-16-2025 [facility] Start: 02-01-2025 Registered [facility] HEALTH RIS K ASSESSMENT -Laboratory Work Phone: Start: 02-01-2025 ambulatory Helen Avilez Facility:[facility] Start: 01-24-2025 End: 01-24-2025 Patient encounter procedure Garrick Neves [facility] Work Phone: Start: 01-24-2025 End: 01-24-[address] Helen Avilez DO Work Phone: [facility] Work Phone: Start: 01-24-2025 End: 01-24-2025 [facility] Start: 09-26-2024 End: 09-26-2024 ambulatory Argenis Yaoov Facility:[facility] Start: 07-25-2024 End: 07-25-2024 ambulatory Tamia Cheko HATCH TENDER Facility:[facility] Start: 07-25-2024 End: 07-25-2024 ambulatory Tamia Cheko HATCH TENDER Facility:[facility] Start: 01-25-2024 End: 01-25-[address] Helen Avilez Work Phone: [facility] Work Phone: Start: 01-25-2024 End: 01-25-[address] Helen Avilez Work Phone: [facility] Work Phone: Start: 11-10-2023 End: 11-10-[address] Helen Avilez Work Phone: [facility] Work Phone: Start: 11-10-2023 End: 11-10-[address] Helen Avilez Work Phone: [facility]-Laboratory Work Phone: Start: 11-01-2023 End: 11-01-[address] Helen Avilez Work Phone: [facility] Work Phone: Start: 08-30-2023 End: 08-30-2023 ambulatory [facility] Work Phone: Start: 08-30-2023 End: 08-30-2023 Patient encounter procedure [facility]-Laboratory, Fer Metz [facility] Start: 06-10-2023 Registered Referred [facility] Work Phone: Start: 04-29-2023 End: 04-29-2023 ambulatory [facility] Work Phone: Start: 04-29-2023 End: 04-29-2023 Patient encounter procedure [facility]-Laboratory Work Phone: Start: 03-18-2023 End: 03-18-2023 ambulatory [facility] Work Phone: Start: 03-18-2023 End: 03-18-2023 Patient encounter procedure [facility]-Outpatient Breast Imaging Work Phone: Start: 02-10-2023 End: 02-15-2023 ambulatory MYRIAM LIU APRN-RECEIVING INSPECTOR Facility:B Start: 02-10-2023 End: 02-15-2023 Encounter for gynecological examination (general) (routine) without abnormal findings MYRIAM LIU APRN-RECEIVING INSPECTOR Facility:[facility] Start: 02-10-2023 End: 02-14-2023 Outreach Lab MYRIAM JACOBS [facility] Start: 10-21-2022 End: 10-21-[address] Helen Avilez Work Phone: [facility] Work Phone: Start: 10-21-2022 End: 10-21-[address] Helen Avilez Work Phone: [facility] Start: 10-20-2022 End: 10-20-2022 ambulatory BRADY SHEA Facility:[facility] Start: 10-20-2022 End: 10-20-2022 Patient encounter procedure Ambreen Chaparro PA-C Work Phone: [facility] Comment on above: Bronchitis (Primary Dx) Start: 10-13-2022 End: 10-13-[address] Helen Avilez Work Phone: [facility] Start: 09-11-2022 Non-patient / Non-visit Dr. Matilde Avilez Work Phone: [facility] Start: 09-11-2022 End: 09-11-[address] Helen Avilez Work Phone: [facility] Work Phone: Start: 09-11-2022 End: 09-11-[address] Helen Avilez Work Phone: [facility]-Outpatient [facility] Ultrasound Start: 08-31-2022 End: 08-31-[address] Helen Avilez Work Phone: [facility] Start: 08-26-2022 End: 08-26-[address] Helen Avilez Work Phone: [facility] Work Phone: Start: 08-26-2022 End: 08-26-[address] Helen Avilez Work Phone: [facility]-Outpatient Breast Imaging Start: 06-30-[address] Helen vo Work Phone: [facility] Start: 06-30-2022 End: 06-30-[address] Helen Avilez Work Phone: [facility] Work Phone: Start: 06-30-2022 End: 06-30-[address] Helen Avilez Work Phone: [facility]-Laboratory Start: 05-23-2022 End: 05-23-[address] Helen Avilez Work Phone: [facility] Start: 03-26-2022 End: 03-26-[address] Helen Avilez Work Phone: [facility] Start: 03-16-2022 End: 03-16-[address] Helen Avilez Work Phone: [facility] Start: 03-05-2022 End: 03-05-[address] Helen Avilez Work Phone: [facility]-Outpatient Pav[facility] Ultrasound Start: 03-03-2022 End: 03-03-[address] Helen Avilez Work Phone: [facility] Start: 03-02-2022 End: 03-02-[address] Helen Avilez Work Phone: [facility] Start: 02-23-2022 End: 02-23-[address] Helen Avilez Work Phone: [facility]-Outpatient Breast Imaging Start: 02-16-2022 End: 02-16-[address] Helen Avilez Work Phone: [facility]-Outpatient Breast Imaging Procedures Date Procedure Procedure Detail [...] Start: 09-25-2016 Dilation and curettage MYRIAM LIU TOOL PROGRAMMER-[employer] Start: 09-25-2016 Hysteroscopy MYRIAM HAREAMY DAWSON TOOL PROGRAMMERm[employer]bnb Destructive procedure MYRIAMMILLIE LIU TOOL PROGRAMMER-[employer] Entire heart (body structure) MYRIAM LIU TOOL PROGRAMMER-RECEIVING INSPECTOR Comment on above: CATHERIZATION 2008 D ONE DUE TO FAMILY HISTORY OF MOTHER Hernia repair MYRIAM LIU TOOL PROGRAMMER-RECEIVING INSPECTOR Comment on above: UMBILICAL 1987 Lens of eye (body structure) MYRIAM LIU TOOL PROGRAMMER-RECEIVING INSPECTOR Comment on above: lensectomy Ligation of fallopian tube S ENRRIQUE LIU TOOL PROGRAMMER-RECEIVING INSPECTOR Comment on above: 1995 Oophorectomy MYRIAM LIU TOOL PROGRAMMER-RECEIVING INSPECTOR Comment on above: RIGHT 1998 Tonsillectomy and adenoidectomy MYRIAM LIU TOOL PROGRAMMER-RECEIVING INSPECTOR Comment on above: 1984 Plan of Treatment Date Care Activity Detail Author Start: 09-11-2022 Bx breast w/device 1st lesion ultrasound guid BX BREAST 1ST LESION US IMAG [facility] Work Phone: Start: 06-25-2022 Influenza vaccination INFLUENZA (#1) [facility] Start: 10-25-2021 DEPRESSION ASSESSMENT DEPRESSION ASSESSMENT [facility] Start: 2021 SHINGRIX VACCINE (1 of 2) SHINGRIX VACCINE (1 of 2) [facility] Start: 2016 COLOGUARD (FIT-DNA) COLOGUARD (FIT-DNA) [facility] Start: 2016 Colonoscopy COLONOSCOPY [facility] Start: 2016 COLORECTAL CANCER SCREENING COLORECTAL CANCER SCREENING [facility] Start: [address] COLONOGRAPHY [facility] Start: 2016 DIABETES SCREEN DIABETES SCREEN [facility] Start: 2016 FECAL OCCULT BLOOD FECAL OCCULT BLOOD [facility] Start: 2016 LIPID SCREEN LIPID SCREEN [facility] Start: 2016 SIGMOIDOSCOPY SIGMOIDOSCOPY [facility] Start: 08-06-2013 HPV TESTING HPV TESTING [facility] Start: 08-06-2013 PAP TESTING PAP TESTING [facility] Start: 2011 Mammography MAMMOGRAM [facility] Start: 1990 Urine microalbumin profile DTAP,TDAP,TD (1 - Tdap) [facility] Start: 1989 ANNUAL PCP TEAM CHRONIC DISEASE VISIT ANNUAL PCP TEAM CHRONIC DISEASE VISIT [facility] Start: 1989 HEPATITIS C SCREENING HEPATITIS C SCREENING [facility] Start: 1989 HIV SCREENING HIV SCREENING [facility] Start: 03-10-1972 COVID-19 VACCINE (#1) COVID-19 VACCINE (#1) [facility] Start: 1971 HEPATITIS B (1 of 3 - 3-dose series) HEPATITIS B (1 of 3 - 3-dose series) [facility] Patient Education RAD RN Ultraso und Breast Biopsy Discharge Instructions [facility] Work Phone: Patient referral [facility] Work Phone: Immunizations Immunization Date Immunization Notes Care Provider Fa cili 08-01-2021 influenza, injectabl e, quadrivalent, preservative free [facility] 08-01-2021 influenza, seasonal, injectable Dr. Helen Avilez Work Phone: [facility] 07-21-2020 influenza, injectabl e, quadrivalent, preservative free [facility] 07-21-2020 influenza, seasonal, injectable Dr. Helen Avilez Work Phone: [facility] 08-08-2019 influenza, injectabl e, quadrivalent, preservative free [facility] 08-08-2019 influenza, seasonal, injectable Dr. Helen Avilez Work Phone: [facility] 08-03-2018 influenza, injectabl e, quadrivalent, preservative free [facility] 08-03-2018 influenza, seasonal, injectable Dr. Helen Avilez Work Phone: [facility] 07-30-2017 influenza, injectabl e, quadrivalent, preservative free [facility] 07-30-2017 influenza, seasonal, injectable Dr. Helen Avilez Work Phone: [facility] 08-24-2016 influenza, injectabl e, quadrivalent, preservative free [facility] 08-24-2016 influenza, seasonal, injectable Dr. Helen Avilez Work Phone: [facility] 08-20-2015 influenza, injectabl e, quadrivalent, preservative free [facility] 08-20-2015 influenza, seasonal, injectable Dr. Helen Avilez Work Phone: [facility] 07-18-2014 influenza, injectabl e, quadrivalent, preservative free [facility] 07-18-2014 influenza, seasonal, injectable Dr. Helen Avilez Work Phone: [facility] Payers Date Payer Category Payer Self-pay [id number] 2023 Unknown [id number] 2022 Unknown [id number] 2022 Unknown MMO MMO TPA [id number] 2022-Present [address] [place] [address] PPO [id number] 2015 Unknown [id number] 1971 Unknown [id number] Unknown [id number] [id number] Unknown [id number] [id number] Unknown [id number] [id number] Unknown [id number] [id number] Unknown [id number] [id number] Unknown [id number] [id number] Unknown [id number] [id number] Unknown [id number] [id number] Unknown [id number] [id number] Unknown [id number] [id number] Unknown [id number] [id number] Unknown [id number] [id number] Unknown [id number] Social History Date Type Detail Facility Start: 03-03-2022 End: 01-25-2024 Tobacco smoking status [facility] Unknown if ever smoked [facility] Start: 09-12-[address] 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) [facility] Start: 10-20-2022 Tobacco Comment 2-6 cig per day [facility] Start: 01-30-2025 Sex Female (finding) [facility] Clinical Notes 08-06-2005 to 03-13-2025 Note Date & Type Note Facility 03-13-2025 Evaluation note Diagnosis Onset Date Resolution Constipation acute March 13 8:59am GERD (gastroesophageal reflux disease) acute March 13, 2025 8 :59am [facility] Work Phone: 1(931) 290-725305-06-2025 Radiology Diagnostic study note [facility] Imaging Services [address] [place], [place] [address] Pelvic w/ Transvaginal MR#: [id number] Acct: [id number] Name: ESTRELLITA GARCIA Rep #: [id number] : 1970 F 54 From: Pauly Chapman MD PCP: Dr. Helen Avilez, DO Status: REG CLI Study:Pelvic w/ Transvaginal Date of Exam: 02/27/25 Exam# [id number] Ordering Dr: Myriam Liu PROCEDURE: PELVIC W/ [...] 4. Additional description as above. Reading Location: [id number] CC: BESS Liu; Dr. Helen Avilez DO ~ Brand Advocate: Signed [facility]04-02-2025 Chief complaint+Reason for visit Narrative * Chief Complaint Admit Date SORE THROAT, CONGESTION January 24, 2025 9:26am COVID-19 January 24, 2025 9:27 am cough January 24, 2025 9:56 am [facility] Work Phone: 1(956) 215-849604-02-2025 Chief complaint+Reason for visit Narrative * Chief Complaint Admit Date SORE THROAT, CONGESTION January 24, 2025 9:26am COVID-19 January 24, 2025 9:27 am cough January 24, 2025 9:56 am HYPOTHYROIDISM February 16, 2025 2:0 1pm PELVIC PAIN February 27, 2025 12:49p m [facility] Work Phone: 1(546) 650-988804-02-2025 Chief complaint+Reason for visit Narrative * Chief Complaint Admit Date SORE THROAT, CONGESTION January 24, 2025 9:26am COVID-19 January 24, 2025 9:27 am cough January 24, 2025 9:56 am HYPOTHYROIDISM February 16, 2025 2:0 1pm PELVIC PAIN February 27, 2025 12:49p m 6 M FU March 13, 2025 8:59a m [facility] Work Phone: 1(200) 224-227304-02-2025 Chief complaint+Reason for visit Narrative * Chief [...] GERD (gastroesophageal reflux disease) M 2024 8:59am [facility] Work Phone: 1(457) 298-473004-02-2025 Radiology Diagnostic study note [facility] Imaging Services [address] [place] [address] Chest PA and Lateral MR#: [id number] Acct: [id number] Name: ESTRELLITA GARCIA Rep #: [id number] : 1970 F 54 From: Pauly Cano MD PCP: Dr. Helen Avilez, DO Status: REG CLI Study:Chest PA and Lateral Date of Exam: 01/24/25 Exam# [id number] Ordering Dr: St serg Neves PA PA [...] IMPRESSION: No acute cardiopulmonary process. Reading Location: [facility] CC: Dr. Helen Avilez, DO; SUMMER Cotto ~ Brand Advocate: Signed [facility]10-01-2024 [facility] Medical Records Department [address] [place] [address] History Physical Exam 07/25/24 0633 MR#: [id number] Acct: [id number] Name: ESTRELLITA GARCIA Rep #: [id number] : 1970 53 From: Bebeto Friend DO PCP: Dr. Helen Avilez DO Status:REG [facility] Location: [place] [address] History and Physical Date of Admission: 07/25/24 ESTRELLITA GARCIA, is a 53 F who presents to the office today for establishment with [facility]. She has a hx of GERD with [...] Patient is here today for establishment with [facility]. She has a hx of GERD with [...] 20 mg daily; explained side effects of snf use -She will follow up in 3 months Orders: I have examined the patient and the H P has been reviewed. There are no clinical changes since date of exam. 07/25/24 2505 Cosigner Signature (if applicable): CC: Dr. Helen Avilez DO; Bebeto Mcadams DO [facility] Evaluation + Plan note Diagnostic Tests Pending * HPV Screen, DNA Probe 02/10/23 Future Scheduled Tests Radiology* MA Mammo Screening Bilateral w/ Ruiz 02/10/23 [facility] Carlos Tameka 12-27-2022 NoteHNO ID: [id number] Author: Ambreen Chaparro PA-C Service: ? Author Type: Physician Information Technology Technician Type: Progress Notes Filed: 10/20/2022 5:21 PM Note Text: This note was created using [employer]. Subjective Estrellita Garcia is a 52 year [...] a prescription for this. She has used kzbg-dgd-hhouvef cold medications with minimal relief. She has [...] being reevaluated. Prednisone and Tessalon sent. [facility]12-27-2022 History of Present illness Narrative* [facility] - 10/20/2022 5:18 PM EST This note was created using [employer]. Eugenio Garcia is a 52 year old [...] negative COVID and strep test at the [facility] on the . She does not really feel any better at this point and has had luck with steroids inthe past helping so wanted a prescription for this. She has used jdva-mke-ahubglb cold medications with minimal relief. She has [...] sent. Ambreen Chaparro PA-C [facility] History of Past illness Narrative* Problem Noted Date Resolved Date Urinary tract infection, site not specified 07/2507/29/2016 documented as of this encounter (statuses as of 10/26/2022) [facility]Reason for visit Narrative* Chief Complaint SCREENING ABNORMAL MAMM RIGHT BREAST BIRADS 4 COVID-19 ABNORMAL BREAST IMAGING Reason for Visit Breast mass, [facility] Work Phone: Chief complaint+Reason for visit Narrative* Chief Complaint SCREENING ABNORMAL MAMM RIGHT BREAST BIRADS 4 COVID-19 ABNORMAL BREAST IMAGING ABN BREAST IMAGING Reason for Visit Breast mass, right [facility] Work Phone: Evaluation note* Diagnosis Onset Date Resolution Status Breast mass, right acute [facility] Work Phone: Evaluation note* Diagnosis Onset Date Resolution Status Cellulitis of left ear canal acute COVID acute [facility] Work Phone: Evaluation note* Diagnosis Onset Date Resolution Status COVID acute [facility] Work Phone: Evaluation note* Diagnosis Onset Date Resolution Status Abnormal finding on breast imaging acute [facility] Work Phone: Evaluation note* Diagnosis Onset Date Resolution Status Abnormal finding on breast imaging acute Contact with or suspected ex posure to other viral communicable disease acute Pharyngitis, acute acute [facility] Work Phone: Evaluation note* Diagnosis Bronchitis- Primary Bronchitis, not specified as acute or chronic documented in this encounter [facility] noteNo assessment information availableWPro[facility] Work Phone: Evaluation note* Diagnosis Onset Date Resolution Status Gastroenteritis acute Pharyngitis, acute acute [facility] Work Phone: Evaluation note* Diagnosis Onset Date Resolution Status Gastroenteritis acute Pharyngitis, acute acute Encounter for screening for malignant neoplasm of lung acute History of tobacco use acute Lung nodule, solitary acute [facility] Work Phone: Hospital course Narrative No data available for this section [facility] Hospital Discharge instructions No data available for this section [facility] Progress note No data available for this section [facility] Reason for referral (narrative)No reason for referral information availableWProMed[facility] Work Phone: Summary Purpose Family History No Family History Records FoundNo Family History Records FoundNo Family History Records FoundNo Family History Records Found Advance Directives No Advanced Directives Records Found Advance Directive Response Recorded Date/ Time Advance Directives No March 03 10:55am Living Will Yes March 03, 2022 1 0:55am Power of Per Diem Nurse Yes March 03, 2022 10:55am Advance Directive Response Recorded Date/ Time Advance Directives No March 03 9:55am Living Will Yes March 03, 2022 9 :55am Power of Per Diem Nurse Yes March 03, 2022 9:55am Advance Directive [...] RIGHT BREAST BX RIGHT BREAST BX COVID TEST/[facility] LEFT HIP PAIN Reason for [...] section and content) DATE CREATED AUTHOR 11/23/2021 [facility] DATE CREATED AUTHOR AUTHOR'S ORGANIZ ATION 10/21/2022 [facility] DATE CREATED AUTHOR AUTHOR'S ORGANIZ ATION 02/20/2023 [facility] DATE CREATED AUTHOR AUTHOR'S ORGANIZ ATION 07/18/2025 [facility] Goals (unrecognized section and content) Goals may [...] or prosecute any alcohol or drug abuse patient.[facility] Reason for Visit (unrecogniz ed section [...] February 27, 2025 End: February 27, 2025 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 Helen Avielz DO Primary Care Provider, Referring P rovider Active Garrick WHEELER PA Attending Provider Active Team Status: Inactive Member Role Status Dates Dr. Helen Avielz DO Primary Care Provider, Referring P rovider Active Tamia Still HATCH TENDER, HATCH TENDER-C Attending Provider Active Team Status: Inactive Member Role Status Dates Dr. Helen Avilez DO Primary Care Provider Active Tamia Still HATCH TENDER, HATCH TENDER-C Attending Provider, Referring Provider Active Team Status: [...] BE BASED ON THE PRIMARY CLINICAL RECORDS. [facility], [facility]. provides no warranty or guarantee of the accuracy or completeness of information in this document.
== END | disposition home or self-care (01) ==
LOC: LAB 15:50
PROVIDERS: PCP Family Medicine; Referring Provider Family Medicine; Visit Provider Family Medicine
DX: E03.9 Hypothyroidism, unspecified (principal)
CPT/HCPCS: 36415; 84439; 84443; 84481

== ENCOUNTER → 2025-07-31 | Outpatient (CLI) | payer OTHER, SELFPAY ==
--- NOTE | 2025-07-31 14:01 | CT_ITS ---
PROCEDURE: LOW DOSE CT LUNG SCREENING 07/31/2025 REASON FOR EXAM: LUNG CANCER SCREENING Former smoker. TECHNIQUE: Procedure Code: CTLUNGSCREEN Modality: CT Procedure: LOW DOSE CT LUNG SCREENING Coronal and Sagittal reconstruction series were provided. One or more dose reduction techniques were used (e.g., Automated exposure control, adjustment of the mA and/or kV according to patient size, use of iterative reconstruction technique). REFERENCE LINK: [employer] Lung-RADS RADIATION DOSE SUMMARY: CTDlvol: 3.02 mGy DLP: 91.01 mGycm COMPARISON: Prior study dated July 25, 2024. FINDINGS: PULMONARY NODULES: (Only nodules >3mm are reported) Nodules described below are on series 1 unless otherwise specified. Pulmonary Nodules: Stable 3 mm noncalcified right upper lobe nodule as seen on axial image number 70 8. Stable 6 mm pleural-based nodule in the right lower lobe along the posterior medial aspect. Hardware:None Lymph Nodes:Small benign-appearing mediastinal lymph nodes. Heart and Vasculature:The heart is nonenlarged. Coronary Artery Calcifications: Absent Lungs and Airways: Mild emphysematous changes are present. Pleura:No pleural effusion. Upper Abdomen:Unremarkable Bones:Degenerative changes of the thoracic spine. CT/Low Dose CT Lung Screening IMPRESSION: Stable examination. Coronary artery calcification (CAC) is is absent Lung-RADS Category: 2 BENIGN (BASED ON IMAGING FEATURES OR INDOLENT BEHAVIOR). RECOMMEND 12-MONTH SCREENING LDCT. Other Significant Findings: Reading Location: [facility]
== END | disposition home or self-care (01) ==
LOC: CT 13:35
PROVIDERS: PCP Family Medicine; Referring Provider Nurse Practitioner Family; Visit Provider Nurse Practitioner Family
DX: Z12.2 Encounter for screening for malignant neoplasm of respiratory organs (principal); Z87.891 Personal history of nicotine dependence
CPT/HCPCS: 71271